=== PATIENT | female | born 1935 | race Caucasian/White ===

== ENCOUNTER → 2016-11-02 | Outpatient (CLI) | payer OTHER ==
[~2016-11-02] MED LIST: BENZ100C84 PO; CLB/200 PO; DOXY100C2 PO; DTR/5 PO; GLC/500 PO; GLIM1TAB2 PO; LEVO50TA6 PO; LISI-725 PO; MULTTAB45 PO; OMEP40CA41 PO; SIMV40TA2 PO
--- NOTE | 2016-11-02 16:06 | MAMMOGRAPHY REPORT ---
BILATERAL DIGITAL SCREENING MAMMOGRAM WITH CAD: 11/02/2016 CLINICAL HISTORY: Routine screening. Patient has no complaints. TECHNIQUE: Current study was also evaluated with a Computer Aided Detection (CAD) system. Bilatera l CC and MLO views were obtained. COMPARISON: Comparison is made to exams dated: 10/01/2015 mammogram, 09/29/2014 mammogram, and 06/25/20 13 mammogram - [facility]. BREAST COMPOSITION: There are scattered areas of fibroglandular density in both breasts. FINDINGS: No suspicious masses, calcifications, or areas of architectural distortion are noted in e ither breast. There has been no significant interval change compared to prior exams. Bilateral adriana gn-appearing calcifications are again noted. IMPRESSION: ACR BI-RADS CATEGORY 2: BENIGN There is no mammographic evidence of malignancy. A 1 year screening mammogram is recommended. The p atient will receive written notification of the results. Approximately 10% of breast cancers are not detected with mammography. A negative mammographic repor t should not delay biopsy if a clinically suggestive mass is present. Carmen Alicea M.D. ah/:11/02/2016 15:39:17 Fly Winder: Farida CHRISTIAN(R)(M), [facility] letter sent: Normal 1/2 BI-RADS Code: ACR BI-RADS Category 2: Benign
== END | disposition home or self-care (01) ==
LOC: C.MAMM 13:13
PROVIDERS: ATTEND Internal Medicine
DX: Z12.31 Encounter for screening mammogram for malignant neoplasm of breast (principal)

== ENCOUNTER → 2016-12-20 | Outpatient (CLI) | payer OTHER ==
[2016-12-20 12:47] LABS: CALCIUM 8.9 mg/dl (8.5-10.1)
[2016-12-20 12:49] LABS: ALKALINE PHOSPHATASE 53 U/L (45-117); ALT/SGPT 37 U/L (12-78); BLOOD UREA NITROGEN 22 mg/dl (7-18); BUN/CREATININE RATIO 17.9 (10-20); CARBON DIOXIDE 26 mmol/L (21-32); CHLORIDE 104 mmol/L (98-107); CHOLESTEROL 85 mg/dl (0-200); GLUCOSE 146 mg/dl (70-99); POTASSIUM 4.4 mmol/L (3.5-5.1); SODIUM 139 mmol/L (136-145); TRIGLYCERIDES 90 mg/dl (0-150); VERY LOW DENSITY LIPOPROT CALC 18 mg/dl
[2016-12-20 12:59] LABS: AST/SGOT 29 U/L (15-37); CHOLESTEROL/HDL RATIO 2.2; ESTIMATED AVERAGE GLUCOSE 177 mg/dl; HA1C FLAG Normal (Normal); HDL CHOLESTEROL 38 mg/dl; LDL CHOLESTEROL CALCULATED 29 mg/dl
[2016-12-20 13:02] LABS: RATIO 8.7 mcg/mg (0-30.0)
== END | disposition home or self-care (01) ==
LOC: C.LABBFT 10:13
PROVIDERS: ATTEND Internal Medicine
DX: E11.65 Type 2 diabetes mellitus with hyperglycemia (principal); E78.5 Hyperlipidemia, unspecified; E03.9 Hypothyroidism, unspecified

== ENCOUNTER → 2017-06-07 | Outpatient (CLI) | payer OTHER ==
--- NOTE | 2017-06-07 13:52 | DIAGNOSTIC IMAGING REPORT ---
CHEST 2 VIEWS ROUTINE CLINICAL HISTORY: 81 years-old Female presenting with BRONCHITIS. TECHNIQUE: PA and lateral views of the chest were obtained. COMPARISON: 09/16/2015. FINDINGS: Atherosclerosis of the aortic arch. Cardiac silhouette normal in size. Slight decreased prominence of pulmonary vasculature. Unchanged prominent lung markings. Lungs and pleural spaces clear. Degenerative changes of the thoracic spine. Cholecystectomy clips noted. Calcification projects over the left upper quadrant, possibly splenic or splenic arterial. IMPRESSION: 1. No acute cardiopulmonary disease. Electronically signed by: Tr Otoole M.D. 06/07/2017 1:50 PM Dictated Date/Time: 06/07/2017 1:49 PM
== END | disposition home or self-care (01) ==
LOC: C.RAD 12:52
PROVIDERS: ATTEND Physician Assistant Medical
DX: J40 Bronchitis, not specified as acute or chronic (principal)

== ENCOUNTER 2017-06-19 16:32 | Emergency (ER) | payer OTHER ==
[~2017-06-19] VITALS: Ht 152.4 cm; Wt 76.6 kg
[2017-06-19 16:42] VITALS: BP 181/75; PULSE 100; TEMP 37; O2SAT 95; Ht 152.4 cm; Wt 76.6 kg
== END 2017-06-19 17:05 | disposition left against medical advice (07) ==
LOC: C.EDB 16:33
DX: Z91.19 Patient's noncompliance with other medical treatment and regimen (principal)

== ENCOUNTER → 2017-06-28 | Outpatient (CLI) | payer OTHER ==
[2017-06-28 12:27] LABS: HEMATOCRIT 40.2 % (37-47); MEAN CELL VOLUME 97.1 fL (80-100); MEAN CORPUSCULAR HEMOGLOBIN 31.9 pg (25-34); MEAN CORPUSCULAR HGB CONC 32.8 g/dl (32-36); MEAN PLATELET VOLUME 9.5 fL (7.4-10.4); PLATELET COUNT 302 K/uL (130-400); RED BLOOD COUNT 4.14 M/uL (4.2-5.4); WHITE BLOOD COUNT 9.33 K/uL (4.8-10.8)
[2017-06-28 12:51] LABS: ALT/SGPT 25 U/L (12-78); BLOOD UREA NITROGEN 13 mg/dl (7-18); BUN/CREATININE RATIO 12.7 (10-20); CARBON DIOXIDE 27 mmol/L (21-32); CHLORIDE 100 mmol/L (98-107); CHOLESTEROL 131 mg/dl (0-200); CREATININE 1.01 mg/dl (0.60-1.20); GLUCOSE 153 mg/dl (70-99); SODIUM 135 mmol/L (136-145); TRIGLYCERIDES 165 mg/dl (0-150); VERY LOW DENSITY LIPOPROT CALC 33 mg/dl
[2017-06-28 13:13] LABS: ALB/GLOB RATIO 0.9 (0.9-2); ALKALINE PHOSPHATASE 55 U/L (45-117); AST/SGOT 22 U/L (15-37); CHOLESTEROL/HDL RATIO 2.7; HDL CHOLESTEROL 48 mg/dl; LDL CHOLESTEROL CALCULATED 50 mg/dl
[2017-06-28 13:19] LABS: ESTIMATED AVERAGE GLUCOSE 183 mg/dl; HA1C FLAG Normal (Normal)
== END | disposition home or self-care (01) ==
LOC: C.LABBFT 10:14
PROVIDERS: ATTEND Internal Medicine
DX: E11.65 Type 2 diabetes mellitus with hyperglycemia (principal)

== ENCOUNTER → 2017-08-01 | Outpatient (CLI) | payer OTHER | END | disposition home or self-care (01) | LOC: C.LABSPEC 15:35 | PROVIDERS: ATTEND Physician Assistant | DX: R39.9 Unspecified symptoms and signs involving the genitourinary system (principal) ==

== ENCOUNTER → 2017-11-06 | Outpatient (CLI) | payer OTHER ==
--- NOTE | 2017-11-07 07:47 | MAMMOGRAPHY REPORT ---
BILATERAL DIGITAL SCREENING MAMMOGRAM TOMOSYNTHESIS WITH CAD: 11/06/2017 CLINICAL HISTORY: Routine screening. Patient has no complaints. TECHNIQUE: Breast tomosynthesis in addition to standard 2D mammography was performed. Current study was also evaluated with a Computer Aided Detection (CAD) system. COMPARISON: Comparison is made to exams dated: 11/02/2016 mammogram, 10/01/2015 mammogram, 09/29/2014 ma mmogram, 06/25/2013 mammogram, and 10/05/2004 mammogram - [facility] [address]. BREAST COMPOSITION: There are scattered areas of fibroglandular density in both breasts. FINDINGS: There are scattered benign rounded rim calcifications in the breasts. Mild to moderate vas cular calcification. The glandular pattern is similar to prior mammograms. No developing mass, arch itectural distortion or cluster of suspicious microcalcifications is seen. IMPRESSION: ACR BI-RADS CATEGORY 2: BENIGN There is no mammographic evidence of malignancy. A 1 year screening mammogram is recommended. The pa tient will receive written notification of the results. Approximately 10% of breast cancers are not detected with mammography. A negative mammographic report should not delay biopsy if a clinically suggestive mass is present. Blanca Abraham M.D. ay/:11/06/2017 16:24:52 Director Hematology: Carmella CRONIN)(Usman), [facility] [address] letter sent: Normal 1/2 BI-RADS Code: ACR BI-RADS Category 2: Benign
== END | disposition home or self-care (01) ==
LOC: C.MAMM 13:27
PROVIDERS: ATTEND Internal Medicine
DX: Z12.31 Encounter for screening mammogram for malignant neoplasm of breast (principal)

== ENCOUNTER → 2018-02-19 | Outpatient (CLI) | payer OTHER ==
--- NOTE | 2018-02-19 14:59 | DIAGNOSTIC IMAGING REPORT ---
ARTERIAL DOPPLER ULTRASOUND LOWER EXTREMITIES BILATERALLY CLINICAL HISTORY: Bilateral leg cramping and diminished pulses. COMPARISON STUDY: No previous studies for comparison. FINDINGS: Grayscale color flow and spectral waveform analysis was performed. The patient refused ankle brachial indices. On the left there is triphasic flow within the common femoral superficial femoral popliteal and anterior tibial arteries. There is biphasic flow within the left posterior tibial and triphasic flow within the peroneal. On the right there was triphasic flow within the common femoral and superficial femoral arteries. There is biphasic flow within the popliteal anterior tibial posterior tibial arteries. There is biphasic flow within the peroneal. No high velocity jets were visualized. IMPRESSION: No evidence of lower extremity arterial stenosis. Electronically signed by: You Campo M.D. 02/19/2018 2:58 PM Dictated Date/Time: 02/19/2018 2:56 PM
== END | disposition home or self-care (01) ==
LOC: C.ULTR 13:10
PROVIDERS: ATTEND Podiatrist
DX: E11.51 Type 2 diabetes mellitus with diabetic peripheral angiopathy without gangrene (principal)

== ENCOUNTER → 2018-02-22 | Outpatient (CLI) | payer OTHER | END | disposition home or self-care (01) | LOC: C.LABSPEC 09:38 | PROVIDERS: ATTEND Internal Medicine | DX: R39.9 Unspecified symptoms and signs involving the genitourinary system (principal); N39.0 Urinary tract infection, site not specified ==

== ENCOUNTER 2020-05-06 11:36 | Observation (INO) ==
[2020-05-06] MEDS ORDERED: LIDOCAINE/EPINEPHRINE 1% 20 ML VIAL INFIL ONE (12:11)
--- NOTE | 2020-05-06 12:35 | Emergency Department Note ---
History of Present Illness General Chief Complaint: Laceration/Cut (Suture/Dermabond) Stated Complaint: FALL HEAD LACERATION Time Seen by Provider: 05/06/20 11:56 Source: patient Mode of arrival: ambulatory Limitations: no limitations History of Present Illness Provider complaint: fall, head injury and other (laceration) Onset (ago): hour(s) 8 Fall from: chair (toilet) Fall witnessed: no Place fall occurred: home Loss of consciousness: none Prolonged down time: no Symptoms prior to fall: none Treatments prior to arrival: + none Context: + other (fell asleep while on toilet) Location of injury: + head Location of injury - extremities: Right: shoulder and knee Severity: moderate Current Pain Intensity: 0 Associated symptoms (after fall): + denies This 84-year-old female patient presents to the emergency department today for evaluation of head laceration and fall. The patient states last night she awoke to go to the bathroom and at approximately 4 AM. She believes she fell asleep on the toilet, then fell onto the floor, striking her head on what she believes to be the concrete floor, but is unclear regarding these details. The patient states she was able to get onto all fours to crawl into her bedroom and get herself up to a standing position and went back to bed. She states she is now experiencing right shoulder and right knee pain in addition to the laceration on the head. The patient contacted her family this morning who brought her to the emergency department for evaluation. The patient denies any syncope, chest pain, dyspnea, numbness, tingling, weakness, inability to ambulate, abdominal pain, nausea, or vomiting. She denies any neck pain. Related Data Patient tetanus UTD: Yes Home Medications Home Medications Medication Instructions Recorded Confirmed Type levothyroxine 50 mcg tablet 50 mcg PO DAILY #90 tab 07/31/19 05/06/20 Rx lisinopril 20 mg tablet 20 mg PO DAILY #90 tab 08/05/19 05/06/20 Rx empagliflozin 25 mg tablet 25 mg PO DAILY #90 tab 10/28/19 05/06/20 Rx sitagliptin 100 mg tablet 100 mg PO DAILY #30 tab 01/23/20 05/06/20 Rx glimepiride 4 mg tablet 4 mg PO BID #60 tab 04/14/20 05/06/20 Rx oxybutynin chloride 5 mg tablet 5 mg PO BID #180 tab 04/22/20 05/06/20 Rx omeprazole 40 mg capsule,delayed 40 mg PO BID #180 cap 04/23/20 05/06/20 Rx release Allergies Allergy/AdvReac Type Severity Reaction Status Date / Time metformin AdvReac diarrhea Verified 04/30/20 13:36 Past Med/Surg History Medical History Cholelithiases (05/17/13) Diabetes mellitus type 2, uncontrolled Hypercholesteremia Hypothyroidism Surgical History History of cataract surgery History of colonoscopy History of hysterectomy vaginal History of laparoscopic cholecystectomy History of surgery on arm History of vaginal surgery H/O vaginal sling procedure Family History (Updated 04/30/20 @ 13:41 by Agata Gleason MA) Mother Asthma Diabetes Father Diabetes Sister Diabetes Dementia Brother Cancer Myocardial infarction Other Family history of diabetes mellitus Family history of hypertension Denies family history of Ovarian cancer Prostate cancer Coronary heart disease Breast cancer Colorectal cancer Stroke Social History Smoking Status: Never smoker Second Hand Exposure: No; Hx Alcohol Use: No Hx Substance Use: No Preferred Language: Uzbek Visual Impairment: No Limitations Hearing Ability: Normal Heat 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 Required: No Beliefs That Will Affect Care: None marital status: / Current Living Situation: Alone current occupational status: disabled Feels Safe at Home: Yes Childhood Exposure to Second-Hand Smoke: No caffeine: Yes during the past year weight has: remained stable Dental Care, Regularly: No Physical Activity Frequency: Does not Exercise Seatbelt Use: always Review of Systems A total of 10 systems reviewed and were otherwise negative Physical Exam Vital Signs Vital Signs - 24 hr 05/06/20 11:44 05/06/20 12:30 05/06/20 12:33 Temperature 37.1 C Temperature Source Oral Pulse Rate 85 75 Pulse Rhythm Regular Pulse Strength Normal Respiratory Rate 18 21 Respiratory Effort / Characteristics Non-Labored Spontaneous Respiratory Depth Normal Blood Pressure 167/71 H 137/67 Blood Pressure Mean 103 80 Pulse Oximetry 96 96 Oxygen Delivery Method Room Air Room Air Sepsis Recent Fever Within 48 Hours No Sepsis New/Unexplained Change in Mental Status No Sepsis Action Taken by Nursing No Action Required 05/06/20 12:38 05/06/20 13:34 05/06/20 13:36 Temperature Temperature Source Pulse Rate 73 78 74 Pulse Rhythm Pulse Strength Respiratory Rate 20 21 20 Respiratory Effort / Characteristics Respiratory Depth Blood Pressure 144/67 H Blood Pressure Mean 81 Pulse Oximetry 95 Oxygen Delivery Method Sepsis Recent Fever Within 48 Hours Sepsis New/Unexplained Change in Mental Status Sepsis Action Taken by Nursing 05/06/20 14:00 05/06/20 14:30 05/06/20 14:31 Temperature Temperature Source Pulse Rate 75 70 70 Pulse Rhythm Pulse Strength Respiratory Rate 16 20 20 Respiratory Effort / Characteristics Respiratory Depth Blood Pressure 130/63 120/53 L Blood Pressure Mean 76 82 Pulse Oximetry Oxygen Delivery Method Sepsis Recent Fever Within 48 Hours Sepsis New/Unexplained Change in Mental Status Sepsis Action Taken by Nursing 05/06/20 15:00 Temperature Temperature Source Pulse Rate 72 Pulse Rhythm Pulse Strength Respiratory Rate 22 Respiratory Effort / Characteristics Respiratory Depth Blood Pressure Blood Pressure Mean Pulse Oximetry Oxygen Delivery Method Sepsis Recent Fever Within 48 Hours Sepsis New/Unexplained Change in Mental Status Sepsis Action Taken by Nursing VITALS: Vitals are noted on the nurse's note and reviewed by myself. Vital signs stable. GENERAL: This is an 84-year-old white female, in no acute distress, nondiaphoretic, well-developed well-nourished. SKIN: 6 centimeter linear laceration on the right frontal region of the scalp. The edges do gape apart with traction and the bone is visible at the base of the wound. No active bleeding or discharge. No surrounding erythema or evidence of infection. No significant edema. There is some mild tenderness to palpation in this area. The skin was otherwise without rashes, erythema, edema, or bruising. There is no tenting of the skin. Capillary refill less than 2 seconds. HEAD: Normocephalic atraumatic. EARS: External auditory canals clear, tympanic membranes pearly molina without erythema or effusion bilaterally. No hemotympanum. Negative rao sign. EYES: Pupils equal round and reactive to light and accommodation. Conjunctivae without injection, sclerae without icterus. Extraocular movements intact. No swelling or discoloration of the tissue surrounding the eyes. NOSE: Patent, turbinates without inflammation or discharge. No sinus tenderness. MOUTH: Mucous membranes moist. Tonsils are not enlarged. Pharynx without erythema or exudate. Uvula midline. Airway patent. Tongue does not deviate. NECK: Supple without nuchal rigidity. No lymphadenopathy. No thyromegaly. Cervical spine is nontender. No JVD. HEART: Regular rate and rhythm without murmurs gallops or rubs. LUNGS: Clear to auscultation bilaterally without wheezes, rales or rhonchi. No retractions or accessory muscle use. MUSCULOSKELETAL: No muscle atrophy, erythema, or edema noted. Full range of motion without joint tenderness in all extremities. Tenderness of the right knee and right shoulder joints to palpation. Normal gait. Strength 5/5 throughout. NEURO: Patient was alert and oriented to person place and time. Normal sensation to light and sharp touch. Deep tendon reflexes 2+ throughout. No focal neurological deficits. Procedures Laceration Laceration 1: Site: scalp Side (If applicable): right Size (cm): 6 Description: linear Depth: simple, single layer Local Anesthetic: lidocaine 1% and with epi Amount of anesthesia used (mL): 6 Pre-repair: wound explored, irrigated extensively and deep structures intact Skin layer closed with: other (liv) Number of sutures: 7 Course Course The patient was seen and evaluated as above. An order was placed for continuous cardiac monitoring. The monitor shows a normal sinus rhythm at a rate of 72 bpm. IV access obtained, labs drawn. Imaging performed and reviewed by myself and radiologist as noted. Labs reviewed by myself. I discussed the findings with the patient at bedside. I did discuss the case with the [facility] physician, Dr. Galvez. We agreed to repeat the troponin. Laceration was repaired as noted. Repeat troponin continues to be elevated. The patient will be admitted to the [facility] hospitalist service. Please see hospitalist dictation regarding ongoing management care of this patient. Administered Medications Discontinued Medications Lidocaine/Epinephrine (Lidocaine/Epinephrine 1% 20 Ml Vial) 20 ml INFIL NOW ONE Stop: 05/06/20 12:12 Last Admin: 05/06/20 12:36 Dose: 20 ml Documented by: [id number] Medical Decision Making Differential Diagnosis syncope, dislocation, fracture, compression fracture, concussion with loss of consciousness, concussion without loss of consciousness, closed head injury, intracranial bleeding, contusion, abrasion, soft tissue injury, conpartment syndrome and rhabdomyolysis In addition to the above, cardiac etiology, metabolic abnormality, electrolyte abnormality, among others was considered Medical Records Attestation: I reviewed the patient's medical records. Home Medications Current Medication List: was personally reviewed by me Laboratory Data Attestation: I reviewed the patient's lab results. No leukocytosis, anemia, thrombocytopenia. Renal, hepatic function, and electrolytes without significant abnormality though creatinine mildly elevated at 1.49 with a an elevated BUN of 39. Magnesium 1.5. Coags normal. Troponin elevated 0.192. Repeat troponin elevated 0.213. Result diagrams: 05/06/20 12:25 05/06/20 12:25 Lab Results 05/06/20 05/06/20 05/06/20 Range/Units 12:25 12:25 12:25 WBC 9.38 (4.8-10.8) K/uL RBC 4.28 (4.2-5.4) M/uL Hgb 13.7 (12.0-16.0) g/dL Hct 39.2 (37-47) % MCV 91.6 (80-100) fL MCH 32.0 (25-34) pg MCHC 34.9 (32-36) g/dL RDW Std Deviation 45.7 (36.4-46.3) fL RDW Coeff of Barry 13.7 (11.5-14.5) % Plt Count 306 (130-400) K/uL MPV 9.5 (7.4-10.4) fL Immature Gran % (Auto) 0.2 % Neut % (Auto) 75.3 % Lymph % (Auto) 17.8 % Bath % (Auto) 5.9 % Eos % (Auto) 0.7 % Baso % (Auto) 0.1 % Neut # (Auto) 7.06 H (1.4-6.5) K/uL Lymph # (Auto) 1.67 (1.2-3.4) K/uL Bath # (Auto) 0.55 (0.11-0.59) K/uL Eos # (Auto) 0.07 (0-0.5) K/uL Baso # (Auto) 0.01 (0-0.2) K/uL Immature Gran # (Auto) 0.02 (0.00-0.02) K/uL PT 10.7 (9.0-12.0) Seconds INR 1.0 (0.9-1.1) APTT 27.9 (21.0-31.0) Seconds PTT Ratio 1.0 Sodium 134 L (136-145) mmol/L Potassium 4.3 (3.5-5.1) mmol/L Chloride 101 (98-107) mmol/L Carbon Dioxide 26 (21-32) mmol/L Anion Gap 7.0 (3-11) BUN 39 H (7-18) mg/dl Creatinine 1.49 H (0.6-1.2) mg/dl Est Cr Clr Drug Dosing 23.0 ml/min Est GFR ( Amer) 37.5 Est GFR (Non-Af Amer) 32.4 BUN/Creatinine Ratio 26.5 H (10-20) Glucose 245 H (70-99) mg/dl Calcium 9.4 (8.5-10.1) mg/dl Magnesium 1.5 L (1.8-2.4) mg/dl Total Bilirubin 0.7 (0.2-1) mg/dl AST 23 (15-37) U/L ALT 24 (12-78) U/L Alkaline Phosphatase 86 (45-117) U/L Troponin I 0.192 H* (0-0.045) ng/ml Total Protein 7.9 (6.4-8.2) gm/dl Albumin 3.5 (3.4-5.0) gm/dl Globulin 4.4 H (2.5-4.0) gm/dl Albumin/Globulin Ratio 0.8 L (0.9-2) 14/20 Range/Units 13:45 WBC (4.8-10.8) K/uL RBC (4.2-5.4) M/uL Hgb (12.0-16.0) g/dL Hct (37-47) % MCV (80-100) fL MCH (25-34) pg MCHC (32-36) g/dL RDW Std Deviation (36.4-46.3) fL RDW Coeff of Barry (11.5-14.5) % Plt Count (130-400) K/uL MPV (7.4-10.4) fL Immature Gran % (Auto) % Neut % (Auto) % Lymph % (Auto) % Bath % (Auto) % Eos % (Auto) % Baso % (Auto) % Neut # (Auto) (1.4-6.5) K/uL Lymph # (Auto) (1.2-3.4) K/uL Bath # (Auto) (0.11-0.59) K/uL Eos # (Auto) (0-0.5) K/uL Baso # (Auto) (0-0.2) K/uL Immature Gran # (Auto) (0.00-0.02) K/uL PT (9.0-12.0) Seconds INR (0.9-1.1) APTT (21.0-31.0) Seconds PTT Ratio Sodium (136-145) mmol/L Potassium (3.5-5.1) mmol/L Chloride (98-107) mmol/L Carbon Dioxide (21-32) mmol/L Anion Gap (3-11) BUN (7-18) mg/dl Creatinine (0.6-1.2) mg/dl Est Cr Clr Drug Dosing ml/min Est GFR ( Amer) Est GFR (Non-Af Amer) BUN/Creatinine Ratio (10-20) Glucose (70-99) mg/dl Calcium (8.5-10.1) mg/dl Magnesium (1.8-2.4) mg/dl Total Bilirubin (0.2-1) mg/dl AST (15-37) U/L ALT (12-78) U/L Alkaline Phosphatase (45-117) U/L Troponin I 0.213 H* (0-0.045) ng/ml Total Protein (6.4-8.2) gm/dl Albumin (3.4-5.0) gm/dl Globulin (2.5-4.0) gm/dl Albumin/Globulin Ratio (0.9-2) Imaging Data Radiologist's Impression: HEAD CT NONCONTRAST CT DOSE: 1632.96 mGy.cm HISTORY: fall, head injury TECHNIQUE: Multiaxial CT images of the head were performed without the use of intravenous contrast. Automated exposure control was utilized for this study. A dose lowering technique was utilized adhering to the principles of ALARA. Comparison: None. Findings: The paranasal sinuses and mastoid air cells are clear. The calvarium and skull base are intact. There is no mass, hematoma, midline shift, acute infarct. White matter hypodensity is nonspecific but suggestive of microvascular ischemic change. The ventricles and sulci demonstrate mild age-related involutional changes. Right frontal scalp laceration. Impression: No acute intracranial abnormality. Right frontal scalp laceration. ACT 112: Negative or not required by law. Electronically signed by: Mike Sexton M.D. 05/06/2020 12:[address] SCAN OF THE CERVICAL SPINE CLINICAL HISTORY: Trauma. Fall. COMPARISON STUDY: No priors. TECHNIQUE: CT scan of the cervical spine is performed from the skull base to the upper thoracic spine. Images are reviewed in the axial, sagittal, and coronal planes. IV contrast was not administered for this examination. A dose lowering technique was utilized adhering to the principles of ALARA. FINDINGS: Skeletal structures: The skeletal structures are osteopenic. There is no eviden ce of fracture or subluxation involving the cervical spine. Vertebral body height and alignment are maintained. There is straightening of the cervical lordosis. Large anterior osteophytes are seen throughout. The odontoid process and lateral masses are intact. The atlantoaxial articulation is preserved noting productive degenerative change. The spinous processes appear intact. There is moderate to advanced multilevel cervical spondylosis. Uncovertebral and facet arthropathy contribute to neural foraminal stenosis at most levels. Intervertebral discs: Moderate to advanced disc space narrowing is seen at all cervical levels. Central canal: Posterior disc osteophyte complexes at all cervical levels likely contribute to multilevel acquired compromise of the central canal. Soft tissues: The prevertebral and paraspinous soft tissues are within normal limits. Calvarium: The visualized calvarium at the skull base appears intact. Brain parenchyma: Partially visualized brain parenchyma the skull base is within normal limits. Sinuses and mastoids: The visualized paranasal sinuses are clear. There are bilateral mastoid effusions. Lung apices: Clear as visualized. IMPRESSION: 1. There is no evidence of fracture or subluxation involving the cervical spine. 2. Osteopenia and spondylotic change as above. ACT 112: Negative or not required by law. Electronically signed by: Johnson Ahumada M.D. 05/06/2020 12:57 PM XR chest 1V not portable CLINICAL HISTORY: Fall. COMPARISON STUDY: Chest radiograph September 27, 2018. FINDINGS: There is no pneumothorax or pleural effusion. No airspace opacities are present. There is no evidence for pulmonary edema. Mild cardiomegaly is unchanged. The appearance of the chest is unchanged. IMPRESSION: No acute cardiopulmonary findings. No change in appearance of the chest. ACT 112: Negative or not required by law. Electronically signed by: Shawn Garcia M.D. 05/06/2020 1:22 PM XR shoulder RT min 2V routine CLINICAL HISTORY: shoulder pain, fall COMPARISON: None FINDINGS: Alignment of the right acromioclavicular and glenohumeral joints is anatomic. Note is made of a 1.1 cm oval-shaped calcific/ossific density along the inferior aspect of the glenoid which is chronic. There is moderate osteoarthritis of the right acromioclavicular and glenohumeral joints. IMPRESSION: 1. No acute fracture or dislocation within the right shoulder. 2. 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 3. No change in a 1.1 cm oval-shaped calcific/ossific density along the inferior aspect the glenoid which could reflect a joint body. ACT 112: Negative or not required by law. Electronically signed by: Shawn Garcia M.D. 05/06/2020 1:24 PM XR knee RT 3V CLINICAL HISTORY: right knee pain, pain COMPARISON: None. DISCUSSION: No acute fractures are visualized. There are moderately advanced osteoarthritic changes with marked medial joint compartment narrowing and osteophytic spurring. Degenerative changes are also present within the lateral joint compartment and patellofemoral joint. IMPRESSION: 1. No acute fractures 2. Moderately advanced osteoarthritic change. ACT 112: Negative or not required by law. Electronically signed by: You Campo M.D. 05/06/2020 1:25 PM ECG Data Attestation: I personally reviewed and interpreted this ECG as follows: Indication: chest pain Rate (beats per minute): 72 Rhythm: normal sinus Findings: no ST depression, no T-wave inversion, no ST elevation, no acute ischemic change and no ectopy Comparison ECG Date: from (09/08/2018) Change: no significant change Blood Pressure Blood Pressure Findings: Normal blood pressure Head Trauma GCS Score: 15 MDM Narrative This 84-year-old female patient presents to the emergency department today for evaluation of a large scalp laceration after a fall. The patient fell at 4 AM this morning after getting up to go to the bathroom. She is unclear of the etiology, but believes she fell asleep on the toilet. She does indicate that she could have had a syncopal episode, as she does not recall falling and woke up on the floor. The patient was able to get herself up, but did not contact her family until this afternoon. She was brought to the emergency department with a very large scalp laceration. Because of the unclear etiology, we did elect to perform work-up including labs, EKG, and imaging. Imaging negative for acute abnormality. Labs concerning for an elevated troponin. The patient has had a mildly elevated troponin in the past, but this has been detectable and not positive. We did elect to perform repeat testing, and the troponin does seem to be trending upward. The scalp laceration was repaired here in the emergency department. The patient will be admitted to the hospitalist service for ongoing management of her symptoms and the elevated troponin. Please see hospitalist dictation regarding ongoing management care of this patient. The chart was completed utilizing [employer] Speech voice recognition software. Grammatical errors, random word insertions, pronoun errors, and incomplete sentences are an occasional consequence of this system due to software limitations, ambient noise, and hardware issues. Any formal questions or concerns about the content, text, or information contained within the body of this dictation should be directly addressed to the provider for clarification. Impression & Plan Laceration of scalp, Fall, Elevated troponin Discharge Plan Visit Data Chief Complaint: Laceration/Cut (Suture/Dermabond) Stated Complaint: FALL HEAD LACERATION ED Provider: Michi Burkett ED Midlevel Provider: Sarah Forman Discharge Problem: Laceration of scalp, Fall, Elevated troponin Patient Disposition: Admitted As Inpatient Discharge Instructions Interventions: ED Discharge Assessment Last Done: 05/06/20 15:24 Forms Stand Alone Forms: [facility] [employer] Prescriptions Prescriptions: No Action levothyroxine 50 mcg tablet 50 mcg PO DAILY Qty: 90 RF: 3 lisinopril 20 mg tablet 20 mg PO DAILY Qty: 90 RF: 3 Jardiance 25 mg tablet 25 mg PO DAILY Qty: 90 RF: 3 Januvia 100 mg tablet 100 mg PO DAILY Qty: 30 RF: 5 glimepiride 4 mg tablet 4 mg PO BID Qty: 60 RF: 11 oxybutynin chloride 5 mg tablet 5 mg PO BID Qty: 180 RF: 1 omeprazole 40 mg capsule,delayed release(DR/EC) 40 mg PO BID Qty: 180 RF: 3 Referrals Referrals: Figueroa De La Cruz III, MD [Primary Care Provider] - Discharge Problem: Laceration of scalp Qualifiers: Encounter type: initial encounter Qualified Code(s): S01.01XA - Laceration without foreign body of scalp, initial encounter Fall Qualifiers: Encounter type: initial encounter Qualified Code(s): W19.XXXA - Unspecified fall, initial encounter
[2020-05-06 12:42] LABS: Basophils # (auto) 0.01 K/uL (0-0.2); Basophils % (auto) 0.1 %; Eosinophils # (auto) 0.07 K/uL (0-0.5); Eosinophils % (auto) 0.7 %; Hematocrit (blood only) 39.2 % (37-47); Hemoglobin 13.7 g/dL (12.0-16.0); Immature Granulocytes # (auto) 0.02 K/uL (0.00-0.02); Immature Granulocytes % (auto) 0.2 %; Lymphocytes # (auto) 1.67 K/uL (1.2-3.4); Lymphocytes % (auto) 17.8 %; Mean Corpuscular Hgb Conc 34.9 g/dL (32-36); Mean Corpuscular Volume 91.6 fL (80-100); Mean Platelet Volume 9.5 fL (7.4-10.4); Monocytes # (auto) 0.55 K/uL (0.11-0.59); Monocytes % (auto) 5.9 %; Neutrophils # (auto) 7.06 K/uL (1.4-6.5); Neutrophils % (auto) 75.3 %; Platelet Count 306 K/uL (130-400); RDW Coefficient of Variation 13.7 % (11.5-14.5); RDW Standard Deviation 45.7 fL (36.4-46.3); Red Blood Count 4.28 M/uL (4.2-5.4); White Blood Count 9.38 K/uL (4.8-10.8)
[2020-05-06 12:57] LABS: Partial Thromboplastin Time 27.9 Seconds (21.0-31.0); Prothrombin Time 10.7 Seconds (9.0-12.0)
--- NOTE | 2020-05-06 12:58 | CT Scan Report ---
HEAD CT NONCONTRAST CT DOSE: 1632.96 mGy.cm HISTORY: fall, head injury TECHNIQUE: Multiaxial CT images of the head were performed without the use of intravenous contrast. A utomated exposure control was utilized for this study. A dose lowering technique was utilized adheri ng to the principles of ALARA. Comparison: None. Findings: The paranasal sinuses and mastoid air cells are clear. The calvarium and skull base are int act. There is no mass, hematoma, midline shift, acute infarct. White matter hypodensity is nonspecifi c but suggestive of microvascular ischemic change. The ventricles and sulci demonstrate mild age-rela patric involutional changes. Right frontal scalp laceration. Impression: No acute intracranial abnormality. Right frontal scalp laceration. ACT 112: Negative or not required by law. Electronically signed by: Mike Sexton M.D. 05/06/2020 12:57 PM
--- NOTE | 2020-05-06 12:58 | CT Scan Report ---
CT SCAN OF THE CERVICAL SPINE CLINICAL HISTORY: Trauma. Fall. COMPARISON STUDY: No priors. TECHNIQUE: CT scan of the cervical spine is performed from the skull base to the upper thoracic spine . Images are reviewed in the axial, sagittal, and coronal planes. IV contrast was not administered fo r this examination. A dose lowering technique was utilized adhering to the principles of ALARA. FINDINGS: Skeletal structures: The skeletal structures are osteopenic. There is no evidence of fracture or subl uxation involving the cervical spine. Vertebral body height and alignment are maintained. There is st raightening of the cervical lordosis. Large anterior osteophytes are seen throughout. The odontoid pr ocess and lateral masses are intact. The atlantoaxial articulation is preserved noting productive deg enerative change. The spinous processes appear intact. There is moderate to advanced multilevel cervi ivis spondylosis. Uncovertebral and facet arthropathy contribute to neural foraminal stenosis at most levels. Intervertebral discs: Moderate to advanced disc space narrowing is seen at all cervical levels. Central canal: Posterior disc osteophyte complexes at all cervical levels likely contribute to multil evel acquired compromise of the central canal. Soft tissues: The prevertebral and paraspinous soft tissues are within normal limits. Calvarium: The visualized calvarium at the skull base appears intact. Brain parenchyma: Partially visualized brain parenchyma the skull base is within normal limits. Sinuses and mastoids: The visualized paranasal sinuses are clear. There are bilateral mastoid effusio ns. Lung apices: Clear as visualized. IMPRESSION: 1. There is no evidence of fracture or subluxation involving the cervical spine. 2. Osteopenia and spondylotic change as above. ACT 112: Negative or not required by law. Electronically signed by: Johnson Ahumada M.D. 05/06/2020 12:57 PM
[2020-05-06 13:03] LABS: Albumin Level 3.5 gm/dl (3.4-5.0); BUN Creatinine Ratio 26.5 (10-20); Calcium 9.4 mg/dl (8.5-10.1); Est GFR (African American) 37.5; Est GFR (Non-African American) 32.4; Magnesium 1.5 mg/dl (1.8-2.4); Potassium 4.3 mmol/L (3.5-5.1)
[2020-05-06 13:11] LABS: Albumin Globulin Ratio 0.8 (0.9-2); Bilirubin,Total 0.7 mg/dl (0.2-1); Globulin 4.4 gm/dl (2.5-4.0); Total Protein 7.9 gm/dl (6.4-8.2); Troponin I 0.192 ng/ml (0-0.045)
--- NOTE | 2020-05-06 13:23 | XRay Report ---
XR chest 1V not portable CLINICAL HISTORY: Fall. COMPARISON STUDY: Chest radiograph September 27, 2018. FINDINGS: There is no pneumothorax or pleural effusion. No airspace opacities are present. There is n o evidence for pulmonary edema. Mild cardiomegaly is unchanged. The appearance of the chest is unchan ged. IMPRESSION: No acute cardiopulmonary findings. No change in appearance of the chest. ACT 112: Negative or not required by law. Electronically signed by: Shawn Garcia M.D. 05/06/2020 1:22 PM
--- NOTE | 2020-05-06 13:26 | XRay Report ---
XR shoulder RT min 2V routine CLINICAL HISTORY: shoulder pain, fall COMPARISON: None FINDINGS: Alignment of the right acromioclavicular and glenohumeral joints is anatomic. Note is made of a 1.1 cm oval-shaped calcific/ossific density along the inferior aspect of the glenoid which is c hronic. There is moderate osteoarthritis of the right acromioclavicular and glenohumeral joints. IMPRESSION: 1. No acute fracture or dislocation within the right shoulder. 2. 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 3. No change in a 1.1 cm oval-shaped calcific/ossific density along the inferior aspect the glenoid w hich could reflect a joint body. ACT 112: Negative or not required by law. Electronically signed by: Shawn Garcia M.D. 05/06/2020 1:24 PM
--- NOTE | 2020-05-06 13:26 | XRay Report ---
XR knee RT 3V CLINICAL HISTORY: right knee pain, pain COMPARISON: None. DISCUSSION: No acute fractures are visualized. There are moderately advanced osteoarthritic changes w ith marked medial joint compartment narrowing and osteophytic spurring. Degenerative changes are also present within the lateral joint compartment and patellofemoral joint. IMPRESSION: 1. No acute fractures 2. Moderately advanced osteoarthritic change. ACT 112: Negative or not required by law. Electronically signed by: You Campo M.D. 05/06/2020 1:25 PM
--- NOTE | 2020-05-06 13:44 | Electrocardiogram Report ---
Test Reason : Blood Pressure : / mmHG Vent. Rate : 072 BPM Atrial Rate : 072 BPM P-R Int : 178 ms QRS Dur : 066 ms QT Int : 382 ms P-R-T Axes : 037 035 052 degrees QTc Int : 418 ms Normal sinus rhythm Low voltage QRS Borderline ECG When compared with ECG of 08-SEP-2018 18:24, QT has shortened Confirmed by Darryl Joseph ([id number]) on 05/06/2020 1:43:47 PM Referred By: REFERRED SELF Confirmed By:Darryl Joseph
--- NOTE | 2020-05-06 15:08 | History & Physical Report ---
Date of Service May 06, 2020 Assessment & Plan (1) Fall: Unclear events surrounding the fall. Monitor on telemetry floor cardiac arrhythmia. Assess for ACS as below. Suspect mechanical vs. vasovagal s/p micturition. (2) Elevated troponin: Suspected demand-ischemia in setting of likely underlying CAD. Rule out ACS given unclear history of fall, no known history of chest pain or shortness of breath however remains unlikely. Start aspirin 81mg PO daily for primary/secondary prophylaxis given significant risk factors. (3) Laceration of scalp: Follow-up with PCP for staple removal (4) Uncontrolled diabetes mellitus with microalbuminuria: HbA1c 8.8 in February. Repeat with a.m. labs Hold outpatient insulin regiment with glimepiride, empagliflozin, sitagliptin. Start Lantus 10 units twice daily, NovoLog sliding scale aim 110-140, correction 30, carb ratio 10 (5) Hypothyroidism: TSH WNL in February Continue levothyroxine 50 mcg p.o. daily (6) Hypercholesteremia: Repeat lipid panel in a.m. Assess need for statin based upon LDL vs. ASCVD score for primary prevention Admission and Anticipated Discharge Date Admission Date: 05/06/2020 History of Present Illness Chief Complaint: Fall, elevated troponin Primary Care Provider: Figueroa De La Cruz MD Debra Mendoza is an 84-year-old female who presents to the ER due to a fall at home with head laceration. She is unclear about exact history of this but thinks she was sitting on the toilet when she got up and fell over to one side. She denies any loss of consciousness but is unsure exactly what happened. She is unsure whether she felt dizzy or had any chest pain or shortness of breath prior to this episode. She was able to get a self up but hit her head on the floor with a large amount of blood. She currently feels back to her baseline self after having her head laceration stapled. In the ER work-up for helpful was relatively unremarkable other than an elevated troponin. She has multiple risk factors for cardiovascular disease including diabetes, hypertension, hyperlipidemia. She is unable to give me much of a history regarding the events surrounding her fall and troponin increasing recommend observation overnight to trend troponins to assess for ACS versus demand ischemia. EKG unremarkable. Allergies Allergy/AdvReac Type Severity Reaction Status Date / Time metformin AdvReac diarrhea Verified 04/30/20 13:36 Home Medications Home Medications Medication Instructions Recorded Confirmed Type levothyroxine 50 mcg tablet 50 mcg PO DAILY #90 tab 07/31/19 05/06/20 Rx lisinopril 20 mg tablet 20 mg PO DAILY #90 tab 08/05/19 05/06/20 Rx empagliflozin 25 mg tablet 25 mg PO DAILY #90 tab 10/28/19 05/06/20 Rx sitagliptin 100 mg tablet 100 mg PO DAILY #30 tab 01/23/20 05/06/20 Rx glimepiride 4 mg tablet 4 mg PO BID #60 tab 04/14/20 05/06/20 Rx oxybutynin chloride 5 mg tablet 5 mg PO BID #180 tab 04/22/20 05/06/20 Rx omeprazole 40 mg capsule,delayed 40 mg PO BID #180 cap 04/23/20 05/06/20 Rx release Past Med/Surg History Medical History Cholelithiases (05/17/13) Diabetes mellitus type 2, uncontrolled Hypercholesteremia Hypothyroidism Surgical History History of cataract surgery History of colonoscopy History of hysterectomy vaginal History of laparoscopic cholecystectomy History of surgery on arm History of vaginal surgery H/O vaginal sling procedure Family History (Updated 04/30/20 @ 13:41 by Agata Gleason MA) Mother Asthma Diabetes Father Diabetes Sister Diabetes Dementia Brother Cancer Myocardial infarction Other Family history of diabetes mellitus Family history of hypertension Denies family history of Ovarian cancer Prostate cancer Coronary heart disease Breast cancer Colorectal cancer Stroke Social History Smoking Status: Never smoker Second Hand Exposure: No; Do You Dip or Chew Tobacco: No; Tobacco Cessation Education Requested by Patient: No Hx Alcohol Use: No Hx Substance Use: No Preferred Language: Italian Communication Ability: Effective Visual Impairment: No Limitations Hearing Ability: Normal Guest Specialist Required: No Beliefs That Will Affect Care: None marital status: / Current Living Situation: Alone current occupational status: disabled Other Information That Helps Us Care for You: No Feels Safe at Home: Yes Safety Concerns: Feels Safe At This Time Childhood Exposure to Second-Hand Smoke: No caffeine: Yes during the past year weight has: remained stable Dental Care, Regularly: No Physical Activity Frequency: Does not Exercise Seatbelt Use: always Assistive Devices: Cane and Glasses Review of Systems Review of Systems: All systems reviewed & are unremarkable except as noted in HPI & below Physical Exam Constitutional: well developed; + not well nourished and no acute distress Eyes: + anicteric sclerae; normal pupil size ENMT: external ear and nose normal, oropharynx normal Neck: trachea midline, no thyromegaly Respiratory: normal respiratory effort, lungs clear to auscultation Cardiovascular: Rate/Rhythm: regular rate and regular rhythm Heart Sounds: no murmur Vessels: no JVD Extremities: normal capillary refill and + pedal edema (Trace bilateral ankles, equal); no calf tenderness Gastrointestinal (Abdomen): normal bowel sounds, soft, nontender, no hepatosplenomegaly Musculoskeletal: no cyanosis or clubbing, extremities motor strength 5/5 Skin: no rashes, warm and dry Neurologic: moves all extremities and awake; + CN's not intact, no focal motor deficits and not confused Speech / Cognition: normal speech Motor/Sensory: no tremor, no pronator drift and no sensory deficit Psychiatric: A+Ox3, euthymic affect Results & Data Results & Data ([facility]) Vital Signs (Past 12 Hours) Vital Signs Temp Pulse Resp BP Pulse Ox 05/06/20 15:00 72 22 05/06/20 14:31 70 20 120/53 L 05/06/20 14:30 70 20 05/06/20 14:00 75 16 130/63 05/06/20 13:36 74 20 144/67 H 05/06/20 13:34 78 21 95 05/06/20 12:38 73 20 05/06/20 12:33 96 05/06/20 12:30 75 21 137/67 05/06/20 11:44 37.1 C 85 18 167/[address] SCAN OF THE CERVICAL SPINE IMPRESSION: 1. There is no evidence of fracture or subluxation involving the cervical spine. 2. Osteopenia and spondylotic change as above. XR chest 1V not portable IMPRESSION: No acute cardiopulmonary findings. No change in appearance of the chest. HEAD CT NONCONTRAST Impression: No acute intracranial abnormality. Right frontal scalp laceration. XR knee RT 3V IMPRESSION: 1. No acute fractures 2. Moderately advanced osteoarthritic change. XR shoulder RT min 2V routine IMPRESSION: 1. No acute fracture or dislocation within the right shoulder. 2. 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 3. No change in a 1.1 cm oval-shaped calcific/ossific density along the inferior aspect the glenoid which could reflect a joint body. ECG Indication: chest pain Rate (beats per minute): 72 Comparison ECG Date: from (September 08, 2018) Change: no significant change Code Status & VTE Plan Code Status DNR/DNI VTE Prophylaxis Plan VTE Prophylaxis will be ordered: Yes PG Care Time/CCT Total # of Minutes Spent Total Time Spent with Patient: Total time spent is greater than 50% in coordination of care (as documented) at patient's floor/unit and/or counseling patient: Coding Level of Care Code 52581 OBS Care - Level 3 Diagnoses Fall W19.XXXA Elevated troponin R77.8 Laceration of scalp S01.01XA Encounter type: initial encounter Uncontrolled diabetes mellitus with microalbuminuria E11.29; E11.65; R80.9 Hypothyroidism E03.9 Hypercholesteremia E78.00 (1) Laceration of scalp Encounter type: initial encounter Qualified Code(s): S01.01XA - Laceration without foreign body of scalp, initial encounter
[2020-05-06] MEDS ORDERED: GLUCAGON FOR INJ 1 MG VIAL SQ PRN (16:09)
[2020-05-06] MEDS ORDERED: CARBOHYDRATES FOR HYPOGLYCEMIA PO PRN (16:09)
[2020-05-06] MEDS ORDERED: NITROGLYCERIN SL 0.4 MG/TAB TAB SL PRN (16:09)
[2020-05-06] MEDS ORDERED: ONDANSETRON INJ 2 MG/ML 2 ML VIAL IV PRN (16:09)
[2020-05-06] MEDS ORDERED: DEXTROSE 50% 50 ML SYRINGE IV PRN (16:09)
[2020-05-06] MEDS ORDERED: ACETAMINOPHEN 325 MG TAB PO PRN (16:09)
[2020-05-06] MEDS ORDERED: GLUCOSE 40% GEL 15 GM TUBE PO PRN (16:09)
[2020-05-06] MEDS ORDERED: GLUCOSE 10 TABS/TUBE PO PRN (16:09)
[2020-05-06 17:11] LABS: Appearance Urine Turbid (Clear); Bacteria Urine Automated 3+ (Negative); Bilirubin Urine Negative (Negative); Blood Urine 3+ (Negative); Color Urine Yellow; Epithelial Cell Urine Auto >30 /lpf (0-5); Glucose Urine UA 3+ (Negative); Ketones Urine Negative (Negative); Leukocyte Esterase Urine 2+ (Negative); Nitrite Urine Positive (Negative); Protein Urine 1+ (Negative); RBC Urine Automated >30 /hpf (0-4); Specific Gravity Urine 1.023 (1.000-1.030); Urobilinogen Urine Negative (Negative); WBC Urine Automated >30 /hpf (0-5)
[2020-05-06 17:32] LABS: Cast Urine Automated 0 /lpf (0-5)
[2020-05-06] MEDS: ASPIRIN 81 MG ECTAB PO SCH (17:34)
[2020-05-06] MEDS: INSULIN ASPART 100 UNITS/ML 3 ML PEN SC SCH ×2 (17:35→20:48)
[2020-05-06] MEDS: OXYBUTYNIN CHLORIDE 5 MG TAB PO SCH (20:45)
[2020-05-06] MEDS: METOPROLOL TARTRATE 25 MG TAB PO SCH (20:45)
[2020-05-06] MEDS: PANTOprazole 40 MG TAB PO SCH (20:46)
[2020-05-06] MEDS: INSULIN GLARGINE SOLOSTAR 100 UNITS/ML 3 ML PEN SC SCH (20:47)
[2020-05-07] MEDS: DICLOFENAC SOD 1% GEL 100 GM TUBE EXT PRN ×2 (03:04→08:30)
[2020-05-07] MEDS ORDERED: LEVOTHYROXINE SODIUM 50 MCG TABLET PO SCH (06:30)
[2020-05-07 06:54] LABS: Basophils # (auto) 0.01 K/uL (0-0.2); Basophils % (auto) 0.1 %; Eosinophils # (auto) 0.21 K/uL (0-0.5); Eosinophils % (auto) 2.6 %; Hematocrit (blood only) 38.9 % (37-47); Hemoglobin 13.1 g/dL (12.0-16.0); Immature Granulocytes # (auto) 0.02 K/uL (0.00-0.02); Immature Granulocytes % (auto) 0.2 %; Lymphocytes % (auto) 33.5 %; Mean Corpuscular Hemoglobin 31.2 pg (25-34); Mean Corpuscular Hgb Conc 33.7 g/dL (32-36); Mean Corpuscular Volume 92.6 fL (80-100); Mean Platelet Volume 9.6 fL (7.4-10.4); Monocytes # (auto) 0.61 K/uL (0.11-0.59); Monocytes % (auto) 7.6 %; Neutrophils # (auto) 4.51 K/uL (1.4-6.5); Platelet Count 308 K/uL (130-400); RDW Standard Deviation 47.4 fL (36.4-46.3); White Blood Count 8.06 K/uL (4.8-10.8)
[2020-05-07 07:21] LABS: BUN Creatinine Ratio 24.9 (10-20); Calcium 9.3 mg/dl (8.5-10.1); Creatinine Clr Calc Pharmacy 21.4 ml/min; Est GFR (African American) 31.3; Potassium 4.1 mmol/L (3.5-5.1)
[2020-05-07 07:22] LABS: Estimated Average Glucose 214 mg/dl; Hemoglobin A1C 9.1 % (4.5-5.6)
[2020-05-07 07:44] LABS: Troponin I 0.086 ng/ml (0-0.045)
[2020-05-07] MEDS: INSULIN GLARGINE SOLOSTAR 100 UNITS/ML 3 ML PEN SC SCH (08:34)
[2020-05-07] MEDS: ASPIRIN 81 MG ECTAB PO SCH (08:34)
[2020-05-07] MEDS: PANTOprazole 40 MG TAB PO SCH (08:35)
[2020-05-07] MEDS: METOPROLOL TARTRATE 25 MG TAB PO SCH (08:35)
[2020-05-07] MEDS: OXYBUTYNIN CHLORIDE 5 MG TAB PO SCH (08:35)
[2020-05-07] MEDS: INSULIN ASPART 100 UNITS/ML 3 ML PEN SC SCH ×2 (08:40→12:43)
[2020-05-07] MEDS ORDERED: lisinopril 20 MG TAB PO SCH (09:00)
--- NOTE | 2020-05-07 16:26 | Discharge Summary ---
Date of Service May 07, 2020 Admission HPI Per Admitting Provider Debra Mendoza is an 84-year-old female who presents to the ER due to a fall at home with head laceration. She is unclear about exact history of this but thinks she was sitting on the toilet when she got up and fell over to one side. She denies any loss of consciousness but is unsure exactly what happened. She is unsure whether she felt dizzy or had any chest pain or shortness of breath prior to this episode. She was able to get a self up but hit her head on the floor with a large amount of blood. She currently feels back to her baseline self after having her head laceration stapled. In the ER work-up for helpful was relatively unremarkable other than an elevated troponin. She has multiple risk factors for cardiovascular disease including diabetes, hypertension, hyperlipidemia. She is unable to give me much of a history regarding the events surrounding her fall and troponin increasing recommend observation overnight to trend troponins to assess for ACS versus demand ischemia. EKG unremarkable. Principal Diagnosis Fall; elevated troponin Discharge Exam Constitutional WD/WN, vitals as above Eyes EOM intact bilaterally; no conjunctival abnormality ENMT external ear and nose normal, oropharynx normal Neck trachea midline, no thyromegaly normal visual inspection Respiratory normal respiratory effort, lungs clear to auscultation no respiratory distress Cardiovascular RRR, no murmur, no edema Gastrointestinal (Abdomen) Inspection/Auscultation: abdomen normal to inspection; abdomen not distended Musculoskeletal no cyanosis or clubbing, extremities motor strength 5/5 Skin no rashes, warm and dry Neurologic moves all extremities and awake Psychiatric Orientation: alert, oriented to person and cooperative Discharge Data Allergies Allergy/AdvReac Type Severity Reaction Status Date / Time metformin AdvReac diarrhea Verified 04/30/20 13:36 Consultations 05/06/20 14:50 ED Decision to Admit Stat Ordered Studies 05/06/20 12:11 CT cervical spine wo con Stat 05/06/20 12:12 CT head/brain wo con Stat Diabetes Follow up Diabetes Follow-up Needed for HgbA1c >9% Hospital Course (1) Fall: Unclear events surrounding the fall. Monitor on telemetry floor cardiac arrhythmia. Assess for ACS as below. - Suspect mechanical vs. vasovagal s/p micturition. No issues while in the hospital. BP did run low (100/60); however, admitting provider had started her on metoprolol, so hard to know what her usual BP runs at. She does not check it at home per her daughter. - By discharge, she was walking around the hospital room without assistance. Requested multiple times to go home. (2) PATRICIA (acute kidney injury): Baseline Cr ~1.1 - 1.3, eGFR ~40-45. - Cr up to 1.7 on discharge. Possibly due to some lower BP as admitting provider started her on beta-leslie and her BP was on the low end (100/60). - Discussed with the patient who still wanted to go home. Advised her to hold her lisinopril and drink plenty of fluids. Will talk with PCP about when to restart lisinopril. (3) Elevated troponin: Suspected demand-ischemia in setting of likely underlying CAD. Rule out ACS given unclear history of fall, no known history of chest pain or shortness of breath however remains unlikely. - Troponins were largely stable in the hospital with only a peak of 0.187. No chest pain or EKG changes to indicate ischemia. The patient was NOT interested in further testing in the hospital and asked to go home first thing in the morning. Given her lack of symptoms, I felt it was acceptable to defer this to PCP. (4) Laceration of scalp: Follow-up with PCP for staple removal. (5) Uncontrolled diabetes mellitus with microalbuminuria: HbA1c 8.8 in February. Repeat with a.m. labs - Discharged on home regimen; follow up with PCP. (6) Hypothyroidism: TSH WNL in February - Continue levothyroxine 50 mcg p.o. daily (7) Hypercholesteremia: Assess need for statin based upon LDL vs. ASCVD score for primary prevention Total Time Total Time Spent Total Time Spent (In Minutes): 35 Discharge Plan Discharge Items Patient Disposition: Home - Self-Care Reason For Visit: ELEVATED TROPONIN Discharge Diagnosis: Fall; elevated troponin Activity: Resume your previous activity Non-emergency contact: Primary Care Provider Call non-emergency contact if: your symptoms worsen Follow-up/Referrals: Figueroa De La Cruz III, MD [Primary Care Provider] - 05/13/20 11:30 am (You have an appt with Dr De La Cruz on MondayMay 13 at 1130am. It is important that you keep this appt, if it does not fit your schedule please call [phone] to reschedule. ) Diet: Carb Consistent or DM2 and Heart Healthy Addtl Attending Provider Instructions: Ms. Mendoza, You came to the hospital after a fall. Luckily, apart from the cut on your forehead, you did not have any additional injuries. You didn't have any broken bones. The reason they kept you in the hospital was that one of your labs was a bit high that relates to your heart health. Luckily, this remained stable and you were not having any chest pain symptoms, so we do not feel you need further time in the hospital. If you discuss this issue with your PCP, Dr. De La Cruz may recommend getting a stress test eventually. Please hold your lisinopril (blood pressure medication) until you see Dr. De La Cruz. Your kidney function was not at its baseline, and I think it is due to the slightly lower blood pressure and this medication. Please see Dr. De La Cruz in his office in the next 1-2 weeks to be sure you're doing ok after your fall and to check on your kidney function. Pending Studies at Discharge: No Stand-Alone Forms: My [facility] Polybiotics, Smoking Cessation Medications and DC Order Prescriptions: Continued levothyroxine 50 mcg tablet 50 mcg PO DAILY Qty: 90 RF: 3 Jardiance 25 mg tablet 25 mg PO DAILY Qty: 90 RF: 3 Januvia 100 mg tablet 100 mg PO DAILY Qty: 30 RF: 5 glimepiride 4 mg tablet 4 mg PO BID Qty: 60 RF: 11 oxybutynin chloride 5 mg tablet 5 mg PO BID Qty: 180 RF: 1 omeprazole 40 mg capsule,delayed release(DR/EC) 40 mg PO BID Qty: 180 RF: 3 Discontinued lisinopril 20 mg tablet 20 mg PO DAILY Qty: 90 RF: 3 Discharge Orders: Discharge Order (Routine); Ordered 05/07/20 Ordered By: Charan Rodríguez Admission Data Admit Date/Time: 05/06/20 14:40 Attending Provider: Charan Rodríguez Admit Provider: Wolfgang Galvez Primary Care Provider: Figueroa De La Cruz III Other Providers: Charan Rodríguez Other Interventions: Discharge Summary Assessment (RN) Last Done: 05/07/20 11:04 Coding Level of Care Code 11643 OBS Care - Discharge Diagnoses Fall W19.XXXA Encounter type: initial encounter PATRICIA (acute kidney injury) N17.9 Elevated troponin R77.8 Laceration of scalp S01.01XA Encounter type: initial encounter Uncontrolled diabetes mellitus with microalbuminuria E11.29; E11.65; R80.9 Hypothyroidism E03.9 Hypercholesteremia E78.00
== END 2020-05-07 13:28 | disposition home or self-care (01) ==
LOC: 2N 11:36 → ED 11:36 → SUATTDRO 14:40 → 2N 15:24

== ENCOUNTER 2024-02-02 10:12 | Inpatient (IN) ==
--- NOTE | 2024-02-02 11:12 | Emergency Department Note ---
History of Present Illness General Chief complaint: Weakness Stated complaint: LEG PAIN, NUMBNESS Time Seen by Provider: 02/02/24 11:06 Source: patient, RN notes reviewed and old records reviewed (01/22/2024-outpatient primary care visit for UTI) Mode of arrival: ambulatory Limitations: no limitations History of Present Illness Maximum Pain Intensity: 2 This patient brought in by EMS after having weakness. She was treated recently with Cipro for UTI. She had a culture on January 21 which showed sinclair sensitive E. coli. The patient did fall this morning she was feeling generally weak. She had pain in her left knee but that is been chronic and she does not think she injured she denies any injury in the fall no syncope no chest pain or shortness of breath. She has been feeling weak all over she was on the floor and could not get up she crawled around. She has had some dysuria and loose stool she tells me. No fever. She does have a mild headache. She does not think she hurt her head. She feels diffusely weak but nonfocally. Home Medications Medication Instructions Recorded Confirmed Type vlgjupxf-gkn-[id number] acid 0.4 1 tab PO QAM 02/07/21 02/02/24 History mg-lycopene 300 mcg-lutein 250 mcg tablet (Centrum Silver) diaper,brief,adult,disposable #104 ea 11/09/21 01/22/24 Rx (Depend Underwear For Women Large) rosuvastatin 5 mg tablet 5 mg PO DAILY #90 tabs 01/16/23 02/02/24 Rx flash glucose scanning reader #1 ea 03/02/23 01/22/24 Rx (FreeStyle Best 2 [place]) flash glucose sensor (FreeStyle #1 ea 03/02/23 01/22/24 Rx Best 2 Sensor kit) blood-glucose meter (Accu-Chek #1 ea 03/10/23 01/22/24 Rx Misty Plus Meter) levothyroxine 50 mcg tablet 50 mcg PO QAM #90 tabs 04/13/23 02/02/24 Rx blood sugar diagnostic (Accu-Chek #100 ea 08/03/23 01/22/24 Rx Misty Plus test strips) lancets (Accu-Chek Softclix #100 ea 08/03/23 01/22/24 Rx Lancets) glimepiride 4 mg tablet 4 mg PO BID #180 tabs 01/09/24 02/02/24 Rx olmesartan 5 mg tablet 5 mg PO QAM 02/02/24 02/02/24 History omeprazole 40 mg capsule,delayed 40 mg PO BID 02/02/24 02/02/24 History release semaglutide 7 mg tablet 7 mg PO QAM 02/02/24 02/02/24 History Allergies Allergy/AdvReac Type Severity Reaction Status Date / Time sulfamethoxazole Allergy Hives Verified 02/02/24 12:18 [From Bactrim] trimethoprim [From Bactrim] Allergy Hives Verified 02/02/24 12:18 metformin AdvReac diarrhea Verified 02/02/24 12:18 Past Med/Surg History Problem List (Updated 02/02/24 @ 13:21 by Michi Laek PA-C) HTN (hypertension) Urinary tract infection (Acute) Elevated CK (Acute) Effusion of knee joint, left (Acute) Osteoarthritis of left knee (Acute) Acute dehydration (Acute) Fall (Acute) Weakness (Acute) Diabetes mellitus with microalbuminuria Uterine prolapse (Acute) Hypercholesteremia (Chronic) Hypothyroidism (Chronic) Lymphadenopathy of head and neck Urinary symptom or sign Hematuria Microscopic hematuria Recurrent UTI (urinary tract infection) Incomplete emptying of bladder Chronic cystitis Cystocele Urinary incontinence 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 Medical History Cholelithiases (05/17/13) Surgical History History of vaginal surgery H/O vaginal sling procedure History of surgery on arm History of hysterectomy vaginal History of laparoscopic cholecystectomy History of cataract surgery History of colonoscopy Family History Mother Asthma Diabetes Father Diabetes Sister Diabetes Dementia Brother Cancer Myocardial infarction Other Family history of diabetes mellitus Family history of hypertension Denies family history of Ovarian cancer Prostate cancer Coronary heart disease Breast cancer Colorectal cancer Stroke Social History Smoking Status: Never smoker Second Hand Exposure: No; Do You Dip or Chew Tobacco: No; Hx Alcohol Use: No Hx Substance Use: No Preferred Language: Senegalese Communication Ability: Effective Visual Impairment: No Limitations 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 Beliefs That Will Affect Care: None marital status: / Current Living Situation: Alone current occupational status: disabled Feels Safe at Home: Yes Childhood Exposure to Second-Hand Smoke: No Diet: regular caffeine: Yes during the past year weight has: remained stable Dental Care, Regularly: No Physical Activity Frequency: Does not Exercise Seatbelt Use: always Sunscreen Use: No Assistive Devices: Cane, Denture - Upper, Glasses and Walker Review of Systems A total of 10 systems reviewed and were otherwise negative Physical Exam Vital Signs Vital Signs - 24 hr 02/02/24 10:26 02/02/24 12:21 02/02/24 13:03 Temperature 36.7 C Temperature Source Skin Pulse Rate 90 90 86 Pulse Rate from SpO2 Sensor 91 H 86 Respiratory Rate 18 24 20 Blood Pressure 128/64 127/92 132/71 Blood Pressure Mean 85 103 91 Pulse Oximetry 97 97 96 Oxygen Delivery Method Room Air Room Air Room Air Sepsis Recent Fever Within 48 Hours No Sepsis New/Unexplained Change in Mental Status No Sepsis Action Taken by Nursing No Action Required General: Well developed well nourished older female in no acute distress, breathing comfortably on room air. Normal speech HEENT: Normal cephalic atraumatic. Pupils are equal round and reactive to light. Extraocular movements are intact. Oropharynx is pink with moist mucous membranes. No swelling of the mouth lips or tongue. Neck: Supple with a midline trachea. No meningeal signs or stiffness, no JVD or bruits. No Stridor. Chest: Clear to auscultation bilaterally. No wheezes or rhonchi. No increased work of breathing. Heart: Regular rate and rhythm without murmurs or gallops. Abdomen: Soft nontender, nondistended without rebound guarding or rigidity. Extremities: No cyanosis clubbing or edema. No calf tenderness or assymetry. No redness or swelling. She does have some pain around her left knee mostly posteriorly. No deformity of the legs or shortening. Spine/Back. Non tender to palpation. No CVA tenderness Skin: Good turgor without rashes. Neurologic exam: Cranial nerves two through 12 are intact. Motor and sensation are intact and symmetrical throughout. Course Administered Medications Discontinued Medications Sodium Chloride (Nss) 500 mls @ 999 mls/hr IV .Q31M ONE Stop: 02/02/24 11:50 Last Infusion: 02/02/24 13:50 Dose: Infused Documented By: Admin: 02/02/24 11:44 Dose: 999 mls/hr Documented By: PEPE Ceftriaxone Sodium (Rocephin) 2,000 mg in 50 mls @ 100 mls/hr IV NOW STA Stop: 02/02/24 13:13 Last Infusion: 02/02/24 13:51 Dose: Infused Documented By: Admin: 02/02/24 13:08 Dose: 100 mls/hr Documented By: PEPE Sodium Chloride (Nss) 500 mls @ 999 mls/hr IV .Q31M ONE Stop: 02/02/24 13:16 Last Infusion: 02/02/24 13:50 Dose: Infused Documented By: Admin: 02/02/24 13:08 Dose: 999 mls/hr Documented By: PEPE Medical Decision Making Differential Diagnosis UTI, weakness, sepsis, electrolyte or metabolic abnormality, cardiac disease Medical Records Attestation: I reviewed the patient's medical records. Home Medications Current Medication List: was personally reviewed by me Laboratory Data Attestation: I reviewed the patient's lab results. 02/02/24 11:05 02/02/24 11:05 Lab Results 02/02/24 02/02/24 02/02/24 Range/Units 11:05 11:47 12:15 WBC 11.35 H (4.8-10.8) K/ul RBC 3.90 L (4.20-5.40) M/uL Hgb 12.3 (12.0-16.0) g/dl Hct 36.2 L (37.0-47.0) % MCV 92.8 (80.0-100.0) fL MCH 31.5 (25.0-34.0) pg MCHC 34.0 (32.0-36.0) g/dL RDW Std Deviation 46.3 (36.4-46.3) fL RDW Coeff of Barry 13.6 (11.5-14.5) % Plt Count 219 (130-400) K/uL MPV 9.5 (9.4-12.4) fL Immature Gran % (Auto) 0.5 % Neut % (Auto) 81.0 % Lymph % (Auto) 10.6 % [place] % (Auto) 7.7 % Eos % (Auto) 0.0 % Baso % (Auto) 0.2 % Neut # (Auto) 9.20 H (1.40-6.50) K/uL Lymph # (Auto) 1.20 (1.20-3.40) K/uL [place] # (Auto) 0.87 H (0.11-0.59) K/uL Eos # (Auto) 0.00 (0.00-0.50) K/uL Baso # (Auto) 0.02 (0.00-0.20) K/uL Immature Gran # (Auto) 0.06 (0.01-0.20) K/uL PT 11.1 (9.0-12.0) Seconds INR 1.0 (0.9-1.1) APTT 32 H (21-31) Seconds PTT Ratio 1.2 Sodium 133 L (136-145) mmol/L Potassium 4.1 (3.5-5.1) mmol/L Chloride 103 (98-107) mmol/L Carbon Dioxide 19 L (21-32) mmol/L Anion Gap 11 (3-11) BUN 39 H (6-23) mg/dl Creatinine 1.48 H (0.6-1.2) mg/dl Est Cr Clr Drug Dosing Not Reportable Est GFR ( Amer) 36.8 ml/min Est GFR (Non-Af Amer) 31.7 ml/min BUN/Creatinine Ratio 26.4 H (10-20) Glucose 266 H (70-99(Fasting)) mg/dl Lactate 1.8 (0.4-2.0) mmol/L Calcium 8.0 L (8.6-10.3) mg/dl Total Bilirubin 0.9 (0.2-1.0) mg/dl AST 24 (13-39) U/L ALT 20 (7-52) U/L Alkaline Phosphatase 49 (34-104) U/L Total Creatine Kinase 529 H (26-192) U/L Troponin I High Sens 26.0 H (0-14) pg/ml Total Protein 7.6 (6.0-8.3) gm/dl Albumin 4.2 (3.4-5.0) gm/dl Globulin 3.4 (2.5-4.0) gm/dl Albumin/Globulin Ratio 1.2 (0.9-2) Urine Color Yellow Urine Appearance Cloudy A (Clear) Urine pH 5.5 (4.5-7.5) POC Urine pH (4.5-7.5) Ur Specific [place] 1.019 (1.000-1.030) Urine Protein 2+ H (Negative) POC Urine Protein (Negative) Urine Glucose (UA) 1+ H (Negative) POC Ur Glucose (UA) (Normal) Urine Ketones Negative (Negative) POC Urine Ketones (Negative) Urine Blood 3+ H (Negative) POC Urine Blood (Negative) Urine Nitrite Negative (Negative) POC Urine Nitrite (Negative) Urine Bilirubin Negative (Negative) POC Urine Bilirubin (Negative) Urine Urobilinogen Negative (Negative) POC Urine Urobilinogen (Normal) Ur Leukocyte Esterase 1+ H (Negative) POC U Leukocyte Esteras (Negative) Urine WBC (Auto) 6-10 H (0-5) /hpf Urine RBC (Auto) >20 H (0-2) /hpf U Hyaline Cast (Auto) >20 H (0-2) /lpf U Epithel Cells (Auto) 3-5 H (0-2) /hpf Urine Bacteria (Auto) None Seen (None Seen) Granular Casts Present A (None Prsent) /lpf SARS-CoV-2, RNA, NAAT NEGATIVE (NEGATIVE) 02/02/24 Range/Units 12:21 WBC (4.8-10.8) K/ul RBC (4.20-5.40) M/uL Hgb (12.0-16.0) g/dl Hct (37.0-47.0) % MCV (80.0-100.0) fL MCH (25.0-34.0) pg MCHC (32.0-36.0) g/dL RDW Std Deviation (36.4-46.3) fL RDW Coeff of Barry (11.5-14.5) % Plt Count (130-400) K/uL MPV (9.4-12.4) fL Immature Gran % (Auto) % Neut % (Auto) % Lymph % (Auto) % [place] % (Auto) % Eos % (Auto) % Baso % (Auto) % Neut # (Auto) (1.40-6.50) K/uL Lymph # (Auto) (1.20-3.40) K/uL [place] # (Auto) (0.11-0.59) K/uL Eos # (Auto) (0.00-0.50) K/uL Baso # (Auto) (0.00-0.20) K/uL Immature Gran # (Auto) (0.01-0.20) K/uL PT (9.0-12.0) Seconds INR (0.9-1.1) APTT (21-31) Seconds PTT Ratio Sodium (136-145) mmol/L Potassium (3.5-5.1) mmol/L Chloride (98-107) mmol/L Carbon Dioxide (21-32) mmol/L Anion Gap (3-11) BUN (6-23) mg/dl Creatinine (0.6-1.2) mg/dl Est Cr Clr Drug Dosing Est GFR ( Amer) ml/min Est GFR (Non-Af Amer) ml/min BUN/Creatinine Ratio (10-20) Glucose (70-99(Fasting)) mg/dl Lactate (0.4-2.0) mmol/L Calcium (8.6-10.3) mg/dl Total Bilirubin (0.2-1.0) mg/dl AST (13-39) U/L ALT (7-52) U/L Alkaline Phosphatase (34-104) U/L Total Creatine Kinase (26-192) U/L Troponin I High Sens (0-14) pg/ml Total Protein (6.0-8.3) gm/dl Albumin (3.4-5.0) gm/dl Globulin (2.5-4.0) gm/dl Albumin/Globulin Ratio (0.9-2) Urine Color Urine Appearance (Clear) Urine pH (4.5-7.5) POC Urine pH 5 (4.5-7.5) Ur Specific [place] (1.000-1.030) Urine Protein (Negative) POC Urine Protein Trace H (Negative) Urine Glucose (UA) (Negative) POC Ur Glucose (UA) 50 H (Normal) Urine Ketones (Negative) POC Urine Ketones Negative (Negative) Urine Blood (Negative) POC Urine Blood 250 H (Negative) Urine Nitrite (Negative) POC Urine Nitrite Negative (Negative) Urine Bilirubin (Negative) POC Urine Bilirubin Negative (Negative) Urine Urobilinogen (Negative) POC Urine Urobilinogen Normal (Normal) Ur Leukocyte Esterase (Negative) POC U Leukocyte Esteras Negative (Negative) Urine WBC (Auto) (0-5) /hpf Urine RBC (Auto) (0-2) /hpf U Hyaline Cast (Auto) (0-2) /lpf U Epithel Cells (Auto) (0-2) /hpf Urine Bacteria (Auto) (None Seen) Granular Casts (None Prsent) /lpf SARS-CoV-2, RNA, NAAT (NEGATIVE) Imaging Data Attestation: I personally reviewed and interpreted this imaging study as follows: My Impression: Head CTno hemorrhage or mass effect seen Chest x-rayno acute infiltrate, failure, pneumothorax seen Knee x-rayno fracture. Radiologist's Impression: Chest X-Ray 02/02/24 10:30 SINGLE VIEW CHEST CLINICAL HISTORY: Fall. FINDINGS: An AP, portable, upright chest radiograph is compared to study dated 02/07/2021. The heart is enlarged noting atherosclerotic calcification of the thoracic aorta. The pulmonary vasculature is noncongested. Chronic interstitial thickening is similar to previous. There is bibasilar scarring/atelectasis. No airspace consolidation or large pleural effusion is identified. No pneumothorax is seen. The skeletal structures are osteopenic. The bony thorax is grossly intact. Cholecystectomy clips are seen in the upper abdomen. IMPRESSION: Cardiomegaly with no acute cardiopulmonary abnormality identified. ACT 112: Negative or not required by law. Electronically signed by: Johnson Ahumada M.D. 02/02/2024 11:[address] 02/02/24 11:19 CT SCAN OF THE BRAIN WITHOUT IV CONTRAST CLINICAL HISTORY: Falls. Generalized weakness. COMPARISON STUDY: CT of the brain dated 05/06/2020. TECHNIQUE: Unenhanced axial CT scan of the brain is performed from the vertex to the skull base. A dose lowering technique was utilized adhering to the principles of ALARA. CT DOSE: 547.75 mGy.cm FINDINGS: Brain parenchyma: There is age-related involutional change noting moderate subcortical and periventricular microangiopathic disease. There is no hemorrhage, mass effect, or evidence of acute territorial ischemia by CT criteria. [place]-white matter differentiation is preserved. No extra-axial fluid collection is seen. Ventricles, sulci, cisterns: Prominent secondary to involutional change. Intracranial vasculature: There is atherosclerotic calcification of the cavernous carotid and vertebral arteries. Calvarium: Unremarkable. Sinuses and mastoids: The visualized paranasal sinuses are clear. The mastoid air cells are well pneumatized. Orbits: The bony orbits are grossly intact. There are bilateral ocular lens implants. IMPRESSION: There is no hemorrhage, mass effect, or evidence of acute territorial ischemia by CT criteria. ACT 112: Negative or not required by law. Electronically signed by: Johnson Ahumada M.D. 02/02/2024 11:41 AM Knee X-Ray 02/02/24 11:20 LEFT KNEE 2 VIEWS CLINICAL HISTORY: Posterior knee pain. Fall. FINDINGS: AP and crosstable lateral views of the left knee are obtained. No prior studies are available for comparison at the time of dictation. The skeletal structures are osteopenic. No acute fracture is identified. There is severe degenerative narrowing in the medial compartment with bony sclerosis and irregularity. Moderate to severe narrowing is seen in the lateral and patellofemoral compartments. Chondrocalcinosis is seen in the medial and lateral compartments. There is a large joint effusion. Bony overgrowth is seen along the posterior aspect of the distal femur and proximal tibia. There are marginal osteophytes and patellar enthesophytes. Prepatellar soft tissue swelling is observed. Advanced atherosclerotic calcification is noted in the popliteal artery. IMPRESSION: 1. Soft tissue swelling and large joint effusion with no radiographic evidence of acute fracture. If there is clinical concern for occult fracture a CT scan could be considered. 2. Osteopenia with degenerative change and chondrocalcinosis as above. Electronically signed by: Johnson Ahumada M.D. 02/02/2024 11:[address] 02/02/24 13:[address] DOSE: 980.97 mGy.cm HISTORY: L3 central back pain ?fracture TECHNIQUE: Multiaxial CT images of the lumbar spine were performed and reformatted in the sagittal and coronal plane without the use of contrast. A dose lowering technique was utilized adhering to the principles of ALARA. COMPARISON: None. FINDINGS: No fracture or subluxation within the lumbar spine. The visualized sacrum is intact. Severe disc space narrowing at T11-T12, L3-L4, L4-L5. Mild disc space narrowing at L5-S1. Moderate to severe facet degenerative changes throughout the lumbar spine. Paravertebral soft tissues are unremarkable. There is moderate central canal narrowing at L3-L4 and L4-L5 due to the broad-based posterior disc bulges. A single stable mildly enlarged right retroperitoneal lymph node on image 233 measuring 14 mm. This is of doubtful clinical significance given the long-term stability. Moderate calcified plaque within the normal caliber abdominal aorta. IMPRESSION: 1. No fracture or subluxation within the lumbar spine. 2. Degenerative changes as described above. ACT 112: Negative or not required by law. Electronically signed by: Mike Sexton M.D. 02/02/2024 2:09 PM ECG Data Attestation: I personally reviewed and interpreted this ECG as follows: Indication: + weakness Rate (beats per minute): 86 Rhythm: + normal sinus ECG Intervals/blocks: + Normal QRS, + Normal QT and + Normal OR ECG Accident: + Normal ECG ST segments: + Normal ST segments ECG Findings: + Poor R wave progression; no PACs or no PVCs Comparison ECG Date: from (02/07/2021) Change: no significant change MDM Narrative This patient comes in as described above. She was placed in room A10. She was placed on a quality assurance monitor IV access established multiple blood testing was obtained. She felt weak and fell today and crawled around on the floor. IV access was established. she was hydrated normal saline EKG shows no ischemic changes or ectopy she had no syncope. I extensive workup was done including multiple blood testing as well as urinalysis, EKG, chest x-ray, and head CT. I also x-rayed her left knee. She was reassessed frequently. Her urinalysis does show findings consistent with UTI. I discussed the antibiotic choice and consultation with her ED pharmacist and we will put her on Rocephin 2 g IV. She was given additional IV fluids. Her white count is elevated but her lactic acid is not. Her BUN and creatinine are mildly elevated likely consistent with prerenal/dehydration. CK is mildly elevated as well likely from being on the ground but not high enough to say that she has rhabdo at this point. CAT scans were unremarkable for any acute findings her knee x-ray shows an effusion which is likely old that she has been having chronic pain there. She does feel generally weak and I do think needs to be admitted/observed for hydration observation antibiotics and have consulted and discussed case with the [facility] hospitalist who will see in the ER for these measures Continuous cardiac monitoring: Orders placed in EMR for continuous quality assurance monitor: Upon my evaluation patient noted to be in normal sinus rhythm with a rate of 85 Impression & Plan Weakness, Fall, Acute dehydration, Osteoarthritis of left knee, Effusion of knee joint, left, Elevated CK, Urinary tract infection Discharge Plan Visit Data Chief Complaint: Weakness Stated Complaint: LEG PAIN, NUMBNESS ED Provider: Chapin Bergman Discharge Problem: Weakness, Fall, Acute dehydration, Osteoarthritis of left knee, Effusion of knee joint, left, Elevated CK, Urinary tract infection Forms Stand Alone Forms: [facility] Prescriptions Prescriptions: No Action (DME) Depend Underwear For Women g [facility] See Rx Instructions .Route Qty: 104 0RF Rx Instructions: Size Large/6 per day rosuvastatin 5 mg tablet 5 mg PO DAILY Qty: 90 3RF Rx Instructions: take in evening. (DME) blood-glucose meter [Accu-Chek Misty Plus Meter] [facility] See Rx Instructions .Route Qty: 1 0RF Rx Instructions: As directed levothyroxine 50 mcg tablet 50 mcg PO QAM Qty: 90 3RF (DME) Accu-Chek Misty Plus test strp Strip See Rx Instructions .ROUTE .MEDSUPPLY Qty: 100 5RF Rx Instructions: Use to test blood sugar 3 times a day (DME) lancets [Accu-Chek Softclix Lancets] [facility] See Rx Instructions .ROUTE .MEDSUPPLY Qty: 100 5RF Rx Instructions: Use to test blood sugar 3 times a day. glimepiride 4 mg tablet 4 mg PO BID Qty: 180 3RF (DME) FreeStyle Best 2 [place] [facility] See Rx Instructions .ROUTE .MEDSUPPLY Qty: 1 0RF Rx Instructions: As directed (DME) FreeStyle Best 2 Sensor Kit See Rx Instructions .Route Qty: 1 6RF Rx Instructions: change every 14 days Centrum Silver 0.4-300-250 mg-mcg-mcg Tablet 1 tab PO QAM omeprazole 40 mg capsule,delayed release(DR/EC) 40 mg PO BID Rx Instructions: TAKE 1 CAPSULE BY MOUTH TWICE A DAY olmesartan 5 mg tablet 5 mg PO QAM semaglutide 7 mg tablet 7 mg PO QAM Referrals Referrals: Bashir,Nj P., DO [Primary Care Provider] - Discharge Problem: Fall Qualifiers: Encounter type: initial encounter Qualified Code(s): W19.XXXA - Unspecified fall, initial encounter Osteoarthritis of left knee Qualifiers: Osteoarthritis type: primary Qualified Code(s): M17.12 - Unilateral primary osteoarthritis, left knee
[2024-02-02 11:20] LABS: Basophils # (auto) 0.02 K/uL (0.00-0.20); Basophils % (auto) 0.2 %; Hematocrit (blood only) 36.2 % (37.0-47.0); Hemoglobin 12.3 g/dl (12.0-16.0); Immature Granulocytes # (auto) 0.06 K/uL (0.01-0.20); Immature Granulocytes % (auto) 0.5 %; Lymphocytes % (auto) 10.6 %; Mean Corpuscular Hemoglobin 31.5 pg (25.0-34.0); Mean Corpuscular Volume 92.8 fL (80.0-100.0); Mean Platelet Volume 9.5 fL (9.4-12.4); Monocytes # (auto) 0.87 K/uL (0.11-0.59); Monocytes % (auto) 7.7 %; Platelet Count 219 K/uL (130-400); RDW Coefficient of Variation 13.6 % (11.5-14.5); RDW Standard Deviation 46.3 fL (36.4-46.3); White Blood Count 11.35 K/ul (4.8-10.8)
--- NOTE | 2024-02-02 11:31 | XRay Report ---
SINGLE VIEW CHEST CLINICAL HISTORY: Fall. FINDINGS: An AP, portable, upright chest radiograph is compared to study dated 02/07/2021. The heart i s enlarged noting atherosclerotic calcification of the thoracic aorta. The pulmonary vasculature is n oncongested. Chronic interstitial thickening is similar to previous. There is bibasilar scarring/atel ectasis. No airspace consolidation or large pleural effusion is identified. No pneumothorax is seen. The skeletal structures are osteopenic. The bony thorax is grossly intact. Cholecystectomy clips are seen in the upper abdomen. IMPRESSION: Cardiomegaly with no acute cardiopulmonary abnormality identified. ACT 112: Negative or not required by law. Electronically signed by: Johnson Ahumada M.D. 02/02/2024 11:30 AM
--- NOTE | 2024-02-02 11:35 | XRay Report ---
LEFT KNEE 2 VIEWS CLINICAL HISTORY: Posterior knee pain. Fall. FINDINGS: AP and crosstable lateral views of the left knee are obtained. No prior studies are availab le for comparison at the time of dictation. The skeletal structures are osteopenic. No acute fracture is identified. There is severe degenerative narrowing in the medial compartment with bony sclerosis and irregularity. Moderate to severe narrowing is seen in the lateral and patellofemoral compartments . Chondrocalcinosis is seen in the medial and lateral compartments. There is a large joint effusion. Bony overgrowth is seen along the posterior aspect of the distal femur and proximal tibia. There are marginal osteophytes and patellar enthesophytes. Prepatellar soft tissue swelling is observed. Advanc ed atherosclerotic calcification is noted in the popliteal artery. IMPRESSION: 1. Soft tissue swelling and large joint effusion with no radiographic evidence of acute fracture. If there is clinical concern for occult fracture a CT scan could be considered. 2. Osteopenia with degenerative change and chondrocalcinosis as above. Electronically signed by: Johnson Ahumada M.D. 02/02/2024 11:33 AM
[2024-02-02 11:36] LABS: Alanine Aminotransferase 20 U/L (7-52); Albumin Globulin Ratio 1.2 (0.9-2); Albumin Level 4.2 gm/dl (3.4-5.0); Alkaline Phosphatase 49 U/L (34-104); Anion Gap 11 (3-11); Aspartate Aminotransferase 24 U/L (13-39); BUN Creatinine Ratio 26.4 (10-20); Bilirubin,Total 0.9 mg/dl (0.2-1.0); Blood Urea Nitrogen 39 mg/dl (6-23); Carbon Dioxide 19 mmol/L (21-32); Chloride 103 mmol/L (98-107); Est GFR (African American) 36.8 ml/min; Est GFR (Non-African American) 31.7 ml/min; Globulin 3.4 gm/dl (2.5-4.0); Glucose 266 mg/dl (70-99(Fasting)); Potassium 4.1 mmol/L (3.5-5.1); Sodium 133 mmol/L (136-145); Total Protein 7.6 gm/dl (6.0-8.3)
--- NOTE | 2024-02-02 11:43 | CT Scan Report ---
CT SCAN OF THE BRAIN WITHOUT IV CONTRAST CLINICAL HISTORY: Falls. Generalized weakness. COMPARISON STUDY: CT of the brain dated 05/06/2020. TECHNIQUE: Unenhanced axial CT scan of the brain is performed from the vertex to the skull base. A do se lowering technique was utilized adhering to the principles of ALARA. CT DOSE: 547.75 mGy.cm FINDINGS: Brain parenchyma: There is age-related involutional change noting moderate subcortical and periventri cular microangiopathic disease. There is no hemorrhage, mass effect, or evidence of acute territorial ischemia by CT criteria. Palacios-white matter differentiation is preserved. No extra-axial fluid collec tion is seen. Ventricles, sulci, cisterns: Prominent secondary to involutional change. Intracranial vasculature: There is atherosclerotic calcification of the cavernous carotid and vertebr al arteries. Calvarium: Unremarkable. Sinuses and mastoids: The visualized paranasal sinuses are clear. The mastoid air cells are well pneu matized. Orbits: The bony orbits are grossly intact. There are bilateral ocular lens implants. IMPRESSION: There is no hemorrhage, mass effect, or evidence of acute territorial ischemia by CT [place] kolb. ACT 112: Negative or not required by law. Electronically signed by: Johnson Ahumada M.D. 02/02/2024 11:41 AM
[2024-02-02] MEDS: SODIUM CHLORIDE 0.9% 500 ML IV ONE ×2 (11:44→13:08)
[2024-02-02 11:47] LABS: Partial Thromboplastin Ratio 1.2; Partial Thromboplastin Time 32 Seconds (21-31); Prothrombin Time 11.1 Seconds (9.0-12.0)
[2024-02-02 11:53] LABS: Creatine Kinase 529 U/L (26-192)
[2024-02-02 12:24] LABS: POC Urine Bilirubin Negative (Negative); POC Urine Blood 250 (Negative); POC Urine Glucose 50 (Normal); POC Urine Ketones Negative (Negative); POC Urine Leukocytes Negative (Negative); POC Urine Nitrite Negative (Negative); POC Urine Protein Trace (Negative); POC Urine Urobilinogen Normal (Normal); POC Urine pH 5 (4.5-7.5)
[2024-02-02 12:39] LABS: Appearance Urine Cloudy (Clear); Bacteria Urine Automated None Seen (None Seen); Bilirubin Urine Negative (Negative); Blood Urine 3+ (Negative); Cast Urine Automated >20 /lpf (0-2); Color Urine Yellow; Glucose Urine UA 1+ (Negative); Granular Casts Urine Present /lpf (None Prsent); Ketones Urine Negative (Negative); Leukocyte Esterase Urine 1+ (Negative); Nitrite Urine Negative (Negative); Protein Urine 2+ (Negative); RBC Urine Automated >20 /hpf (0-2); Specific Gravity Urine 1.019 (1.000-1.030); Urobilinogen Urine Negative (Negative); pH Urine 5.5 (4.5-7.5)
--- NOTE | 2024-02-02 12:54 | History & Physical Report ---
Date of Service February 02, 2024 Assessment & Plan (1) Fall: Plan: Admit to med/telemetry Currently stable nontoxic-appearing Patient sustained a mechanical fall while walking into her kitchen today, denies symptoms such as lightheadedness/dizziness, chest pain, shortness of breath prior to the fall Patient explains that she did not hit her head or lose consciousness, landed on her buttocks Denies current head, neck, back pain Patient does endorse tenderness with palpation of the bilateral hips and bilateral knee pain CT of the head and brain without contrast and chest x-ray were negative for acute findings X-ray of the left knee noted soft tissue swelling large joint effusion with no radiographic evidence of acute fracture Will obtain x-ray of the bilateral hips/pelvis for further evalu Lidocaine patch and Tylenol for pain PT/OT consults have been placed as patient will likely need rehab at the time of discharge Fall/aspiration precautions Heart healthy/DM type II diet Bilateral SCDs for DVT prophylaxis AM CBC, CMP, mag, PT/INR (2) Urinary tract infection: Plan: Patient was treated with a course of ciprofloxacin after diagnosed with a UTI on 01/22/2024 Per culture result from 01/22/2024, patient grew pansensitive E. coli Patient's UA is equivocal for infection however, patient still is endorsing dysuria and urinary frequency Status post 1 dose of ceftriaxone in the ED, we will continue with ceftriaxone for now Follow urine culture (3) Elevated CK: Plan: CK obtained on arrival is elevated at 529 Patient appears mildly dehydrated exam but is without PATRICIA or liver dysfunction Status post 1 L NSS in the ED, we will give 1 L LR at 80 mL/h on admission for further hydration Monitor a.m. CMP (4) Diabetes mellitus with microalbuminuria: Plan: Hold semaglutide, glimepiride Monitor BSG ACHS, goal is [id number] Start CF of 50 and CR of 15 ACHS for now Will hold basal insulin as patient's renal function is elevated compared to baseline but not technically an PATRICIA at this time, want to avoid hypoglycemia Adjust regimen as needed (5) HTN (hypertension): Plan: Currently stable Will hold home telmisartan today as patient missed her dose and renal function is slightly elevated compared to baseline If renal function is back to baseline tomorrow can restart Plan The patient was discussed with Dr. Galvez at the time of admission History of Present Illness Chief Complaint: Weakness, fall Primary Care Provider: Nj Bashir DO Richardson is an 88-year-old female with a past medical history significant for diabetes mellitus type 2, hypertension, hypothyroidism, and hyperlipidemia who presented to the [facility] ED on 02/02/2024 via EMS after sustaining a fall at home. She remained stable while in the ED. Labs were significant for a leukocytosis of 11 with neutrophil predominance of 9, creatinine of 1.48 (baseline is near 1.0), BUN of 39, bicarb of 19 with anion gap within normal limits, corrected sodium of 136, glucose of 266, total CK of 529, high-sensitivity troponin of 26, and equivocal UA. CT of the head and brain without contrast and chest x-ray were negative for acute findings. X-ray of the left knee was read as soft tissue swelling and large joint effusion with no radiographic evidence of acute fracture. Clinical concern for occult fracture a CT scan would be considered. Osteopenia with degenerative changes and chondrocalcinosis of the blood. Prior to admission the patient was given 1 L normal saline and a dose of ceftriaxone. Patient was lying in bed in no acute distress at time of exam with her daughter bedside, history was obtained from both. The patient states that she was walking from her bedroom to the kitchen to get something to drink as she had not had anything to eat since waking. She was using her cane when she felt as though it caught on the floor causing her to lose her balance and fall backwards, she fell and landed on her buttocks. She denies hitting her head or losing consciousness. Denies current head, neck, back pain. She has some hip pain but the majority of her pain is in the bilateral knees. Denies recent chest pain, shortness of breath, abdominal pain, nausea/vomiting, diarrhea. When asked, she is still experiencing dysuria despite recently completing a course of antibiotics for UTI. Denies recent hematuria. We discussed CODE STATUS she and her daughter confirm that she is a DNR/DNI and her daughter is her primary decision-maker if she cannot make decisions for self. She still feels as though she is having pain in the bilateral knees and will have trouble walking herself. Please refer to Dr. Galvez's attestation for any changes to the treatment plan Allergies Allergy/AdvReac Type Severity Reaction Status Date / Time sulfamethoxazole Allergy Hives Verified 02/02/24 12:18 [From Bactrim] trimethoprim [From Bactrim] Allergy Hives Verified 02/02/24 12:18 metformin AdvReac diarrhea Verified 02/02/24 12:18 Home Medications Medication Instructions Recorded Confirmed Type [id number] acid 0.4 1 tab PO QAM 02/07/21 02/02/24 History mg-lycopene 300 mcg-lutein 250 mcg tablet (Centrum Silver) diaper,brief,adult,disposable #104 ea 11/09/21 01/22/24 Rx (Depend Underwear For Women Large) rosuvastatin 5 mg tablet 5 mg PO DAILY #90 tabs 01/16/23 02/02/24 Rx flash glucose scanning reader #1 ea 03/02/23 01/22/24 Rx (FreeStyle Best 2 Ona) flash glucose sensor (FreeStyle #1 ea 03/02/23 01/22/24 Rx Best 2 Sensor kit) blood-glucose meter (Accu-Chek #1 ea 03/10/23 01/22/24 Rx Misty Plus Meter) levothyroxine 50 mcg tablet 50 mcg PO QAM #90 tabs 04/13/23 02/02/24 Rx blood sugar diagnostic (Accu-Chek #100 ea 08/03/23 01/22/24 Rx Misty Plus test strips) lancets (Accu-Chek Softclix #100 ea 08/03/23 01/22/24 Rx Lancets) glimepiride 4 mg tablet 4 mg PO BID #180 tabs 01/09/24 02/02/24 Rx olmesartan 5 mg tablet 5 mg PO QAM 02/02/24 02/02/24 History omeprazole 40 mg capsule,delayed 40 mg PO BID 02/02/24 02/02/24 History release semaglutide 7 mg tablet 7 mg PO QAM 02/02/24 02/02/24 History magnesium chloride 64 mg 64 mg PO BID #60 tabs 02/07/24 Rx (magnesium chloride) tablet,delayed release (Mag 64) Past Med/Surg History Problem List HTN (hypertension) Urinary tract infection (Acute) Elevated CK (Acute) Effusion of knee joint, left (Acute) Osteoarthritis of left knee (Acute) Acute dehydration (Acute) Fall (Acute) Weakness (Acute) Diabetes mellitus with microalbuminuria Uterine prolapse (Acute) Hypercholesteremia (Chronic) Hypothyroidism (Chronic) Lymphadenopathy of head and neck Urinary symptom or sign Hematuria Microscopic hematuria Recurrent UTI (urinary tract infection) Incomplete emptying of bladder Chronic cystitis Cystocele Urinary incontinence 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 Medical History Cholelithiases (05/17/13) Surgical History History of vaginal surgery H/O vaginal sling procedure History of surgery on arm History of hysterectomy vaginal History of laparoscopic cholecystectomy History of cataract surgery History of colonoscopy Family History Mother Asthma Diabetes Father Diabetes Sister Diabetes Dementia Brother Cancer Myocardial infarction Other Family history of diabetes mellitus Family history of hypertension Denies family history of Ovarian cancer Prostate cancer Coronary heart disease Breast cancer Colorectal cancer Stroke Social History Smoking Status: Former smoker Second Hand Exposure: No; Do You Dip or Chew Tobacco: No; Hx Alcohol Use: No Hx Substance Use: No Preferred Language: Persian Communication Ability: Effective Visual Impairment: No Limitations Hearing Ability: Normal Credit Risk Modeler Required: No Beliefs That Will Affect Care: None marital status: / Current Living Situation: Alone current occupational status: disabled Feels Safe at Home: Yes Childhood Exposure to Second-Hand Smoke: No Diet: regular caffeine: Yes during the past year weight has: remained stable Dental Care, Regularly: No Physical Activity Frequency: Does not Exercise Seatbelt Use: always Sunscreen Use: No Assistive Devices: Cane Physical Exam Physical Exam: Physical Exam: General: In no acute distress, stated age, well-nourished, non-toxic appearing HEENT: Normocephalic, atraumatic, no scleral icterus, pupils around round, symmetrical, and reactive to light, dry mucus membranes, trachea midline, no thyromegaly Chest/Pulm: No respiratory distress, symmetrical chest expansion, clear breath sounds throughout Cardiac: RRR, no murmurs noted Abdomen: Negative for ascites and bruising, normoactive bowel sounds, soft, non-tender to palpation throughout Musculoskeletal: Symmetrical and without signs of acute trauma, upper with full ROM >Patient with mild tenderness to palpation of the BL hips without step off or crepitus >No obvious swelling or trauma of the BL knees, patient experiences pain with flexion of the BL knees Extremities: Radial, dorsalis pedis, and posterior tibial pulses are intact and symmetrical, no edema noted in the BL LE's Skin: Warm, dry, no rashes , lesions, or scars noted Neuro: Alert and oriented to person, place, month, year, and president, no focal defects, no tremors noted Psych: No acute distress, calm and cooperative during the exam Results & Data Results & Data Vital Signs (Past 12 Hours) Vital Signs Temp Pulse Resp BP Pulse Ox O2 Del Method 02/02/24 12:21 90 24 127/92 97 Room Air 02/02/24 10:26 36.7 C 90 18 128/64 97 Room Air Laboratory Results Abnormal lab results 02/02/24 02/02/24 02/02/24 Range/Units 11:05 12:15 12:21 WBC 11.35 H (4.8-10.8) K/ul RBC 3.90 L (4.20-5.40) M/uL Hct 36.2 L (37.0-47.0) % Neut # (Auto) 9.20 H (1.40-6.50) K/uL [place] # (Auto) 0.87 H (0.11-0.59) K/uL APTT 32 H (21-31) Seconds Sodium 133 L (136-145) mmol/L Carbon Dioxide 19 L (21-32) mmol/L BUN 39 H (6-23) mg/dl Creatinine 1.48 H (0.6-1.2) mg/dl BUN/Creatinine Ratio 26.4 H (10-20) Glucose 266 H (70-99(Fasting)) mg/dl Calcium 8.0 L (8.6-10.3) mg/dl Total Creatine Kinase 529 H (26-192) U/L Troponin I High Sens 26.0 H (0-14) pg/ml Urine Appearance Cloudy A (Clear) Urine Protein 2+ H (Negative) POC Urine Protein Trace H (Negative) Urine Glucose (UA) 1+ H (Negative) POC Ur Glucose (UA) 50 H (Normal) Urine Blood 3+ H (Negative) POC Urine Blood 250 H (Negative) Ur Leukocyte Esterase 1+ H (Negative) Urine WBC (Auto) 6-10 H (0-5) /hpf Urine RBC (Auto) >20 H (0-2) /hpf U Hyaline Cast (Auto) >20 H (0-2) /lpf U Epithel Cells (Auto) 3-5 H (0-2) /hpf Granular Casts Present A (None Prsent) /lpf Diagnostic Findings Chest X-Ray 02/02/24 10:30 SINGLE VIEW CHEST CLINICAL HISTORY: Fall. FINDINGS: An AP, portable, upright chest radiograph is compared to study dated 02/07/2021. The heart is enlarged noting atherosclerotic calcification of the thoracic aorta. The pulmonary vasculature is noncongested. Chronic interstitial thickening is similar to previous. There is bibasilar scarring/atelectasis. No airspace consolidation or large pleural effusion is identified. No pneumothorax is seen. The skeletal structures are osteopenic. The bony thorax is grossly intact. Cholecystectomy clips are seen in the upper abdomen. IMPRESSION: Cardiomegaly with no acute cardiopulmonary abnormality identified. ACT 112: Negative or not required by law. Electronically signed by: Johnson Ahumada M.D. 02/02/2024 11:[address] 02/02/24 11:19 CT SCAN OF THE BRAIN WITHOUT IV CONTRAST CLINICAL HISTORY: Falls. Generalized weakness. COMPARISON STUDY: CT of the brain dated 05/06/2020. TECHNIQUE: Unenhanced axial CT scan of the brain is performed from the vertex to the skull base. A dose lowering technique was utilized adhering to the principles of ALARA. CT DOSE: 547.75 mGy.cm FINDINGS: Brain parenchyma: There is age-related involutional change noting moderate subcortical and periventricular microangiopathic disease. There is no hemorrhage, mass effect, or evidence of acute territorial ischemia by CT criteria. Palacios-white matter differentiation is preserved. No extra-axial fluid collection is seen. Ventricles, sulci, cisterns: Prominent secondary to involutional change. Intracranial vasculature: There is atherosclerotic calcification of the cavernous carotid and vertebral arteries. Calvarium: Unremarkable. Sinuses and mastoids: The visualized paranasal sinuses are clear. The mastoid air cells are well pneumatized. Orbits: The bony orbits are grossly intact. There are bilateral ocular lens implants. IMPRESSION: There is no hemorrhage, mass effect, or evidence of acute territorial ischemia by CT criteria. ACT 112: Negative or not required by law. Electronically signed by: Johnson Ahumada M.D. 02/02/2024 11:41 AM Knee X-Ray 02/02/24 11:20 LEFT KNEE 2 VIEWS CLINICAL HISTORY: Posterior knee pain. Fall. FINDINGS: AP and crosstable lateral views of the left knee are obtained. No prior studies are available for comparison at the time of dictation. The skeletal structures are osteopenic. No acute fracture is identified. There is severe degenerative narrowing in the medial compartment with bony sclerosis and irregularity. Moderate to severe narrowing is seen in the lateral and patellofemoral compartments. Chondrocalcinosis is seen in the medial and lateral compartments. There is a large joint effusion. Bony overgrowth is seen along the posterior aspect of the distal femur and proximal tibia. There are marginal osteophytes and patellar enthesophytes. Prepatellar soft tissue swelling is observed. Advanced atherosclerotic calcification is noted in the popliteal artery. IMPRESSION: 1. Soft tissue swelling and large joint effusion with no radiographic evidence of acute fracture. If there is clinical concern for occult fracture a CT scan could be considered. 2. Osteopenia with degenerative change and chondrocalcinosis as above. Electronically signed by: Johnson Ahumada M.D. 02/02/2024 11:33 AM ECG Additional Comments: Normal sinus rhythm When compared with ECG of 07-FEB-2021 20:48, No significant change was found Confirmed by Mike Sky ([id number]) on 02/02/2024 12:54:26 PM Code Status & VTE Plan Code Status DNR/DNI VTE Prophylaxis Plan VTE Prophylaxis will be ordered: Yes Supervising Physician Co-Signing Physician Notes I personally saw and examined the patient. I verified all bryant points and agree with Michi [place] PA-C with the following exceptions and/or additions: 88 year old female who presents to the ER after a fall. No chest pain, shortness of breath or dizziness prior to falling. Generalized pain but mostly in knees last night. Notably having ongoing dysuria since UTI diagnosis at beginning of the month. O/E A&Ox3, HS RRR, no murmurs, Chest CTAB, Abdo SNT, no CVA tenderness A/P Fall - PT/OT UTI - ceftriaxone, follow up urine culture PG Care Time/CCT Total # of Minutes Spent Total Time Spent with Patient: Total time spent is greater than 50% in coordination of care (as documented) at patient's floor/unit and/or counseling patient: Coding [place] [address] INT INP/OBS CARE 2/55MIN Patient Type Established Medical Decision Making Moderate Complexity Diagnoses Fall W19.XXXA Encounter type: initial encounter Urinary tract infection N39.0 Elevated CK R74.8 Diabetes mellitus with microalbuminuria E11.29; R80.9 HTN (hypertension) I10 (1) Fall Encounter type: initial encounter Qualified Code(s): W19.XXXA - Unspecified fall, initial encounter
--- NOTE | 2024-02-02 12:55 | Electrocardiogram Report ---
Test Reason : Blood Pressure : / mmHG Vent. Rate : 086 BPM Atrial Rate : 086 BPM P-R Int : 172 ms QRS Dur : 062 ms QT Int : 360 ms P-R-T Axes : 044 008 062 degrees QTc Int : 430 ms Normal sinus rhythm When compared with ECG of 07-FEB-2021 20:48, No significant change was found Confirmed by Mike Sky ([id number]) on 02/02/2024 12:54:26 PM Referred By: Confirmed By:Quincy Sky
[2024-02-02] MEDS ORDERED: GLUCOSE 10 TAB/TUBE PO PRN (12:59)
[2024-02-02] MEDS ORDERED: DEXTROSE 50% 50 ML SYRINGE IV PRN (12:59)
[2024-02-02] MEDS ORDERED: GLUCOSE 40% GEL 15 GM TUBE PO PRN (12:59)
[2024-02-02] MEDS ORDERED: CARBOHYDRATES FOR HYPOGLYCEMIA PO PRN (12:59)
[2024-02-02] MEDS ORDERED: GLUCAGON FOR INJ 1 MG VIAL SQ PRN (12:59)
[2024-02-02] MEDS: cefTRIAXone SODIUM 2,000 MG/50 ML BAG IV STA (13:08)
--- NOTE | 2024-02-02 14:11 | CT Scan Report ---
LUMBAR SPINE CT CT DOSE: 980.97 mGy.cm HISTORY: L3 central back pain ?fracture TECHNIQUE: Multiaxial CT images of the lumbar spine were performed and reformatted in the sagittal an d coronal plane without the use of contrast. A dose lowering technique was utilized adhering to the principles of ALARA. COMPARISON: None. FINDINGS: No fracture or subluxation within the lumbar spine. The visualized sacrum is intact. Severe disc space narrowing at T11-T12, L3-L4, L4-L5. Mild disc space narrowing at L5-S1. Moderate to sever e facet degenerative changes throughout the lumbar spine. Paravertebral soft tissues are unremarkable . There is moderate central canal narrowing at L3-L4 and L4-L5 due to the broad-based posterior disc bulges. A single stable mildly enlarged right retroperitoneal lymph node on image 233 measuring 14 mm . This is of doubtful clinical significance given the long-term stability. Moderate calcified plaque within the normal caliber abdominal aorta. IMPRESSION: 1. No fracture or subluxation within the lumbar spine. 2. Degenerative changes as described above. ACT 112: Negative or not required by law. Electronically signed by: Mike Sexton M.D. 02/02/2024 2:09 PM
[2024-02-02] MEDS: LACTATED RINGER'S 1,000 ML IV SCH (15:00)
--- NOTE | 2024-02-02 16:13 | XRay Report ---
SINGLE VIEW PELVIS; SINGLE VIEW RIGHT HIP; SINGLE VIEW LEFT HIP CLINICAL HISTORY: Fall. Bilateral hip pain. FINDINGS: AP views of the pelvis and frog leg views of the right and left hip are correlated with pel pamela CT dated 09/16/2015. The skeletal structures are osteopenic. There is no radiographic evidence of acute fracture involving the hips or bony pelvis. Mild arthritic change and joint space narrowing is seen in the hips. There is degenerative sclerosis of the sacroiliac joints and pubic symphysis. The o verlying soft tissues are within normal limits. Small phleboliths are noted in the pelvis. Lumbosacra l spondylosis is partially imaged. 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 These are unchanged from the [address] Cholecystectomy clips a re noted. IMPRESSION: No acute bony abnormality is identified. Electronically signed by: Johnson Ahumada M.D. 02/02/2024 4:11 PM
[2024-02-02] MEDS: traMADol HCL 50 MG TABLET PO STA (17:34)
[2024-02-02] MEDS: INSULIN ASPART PER UNIT CHARGE SC SCH (18:23)
[2024-02-02] MEDS: PANTOprazole 40 MG TAB PO SCH (20:14)
[2024-02-02] MEDS: ACETAMINOPHEN 325 MG TAB PO PRN (21:29)
[2024-02-03] MEDS: CYCLOBENZAPRINE HCL 5 MG TAB PO ONE (01:20)
[2024-02-03] MEDS: LEVOTHYROXINE SODIUM 50 MCG TABLET PO SCH (05:41)
[2024-02-03 07:20] LABS: Basophils # (auto) 0.01 K/uL (0.00-0.20); Basophils % (auto) 0.1 %; Eosinophils # (auto) 0.08 K/uL (0.00-0.50); Eosinophils % (auto) 1.1 %; Hematocrit (blood only) 30.3 % (37.0-47.0); Hemoglobin 10.4 g/dl (12.0-16.0); Immature Granulocytes # (auto) 0.04 K/uL (0.01-0.20); Immature Granulocytes % (auto) 0.6 %; Lymphocytes # (auto) 1.62 K/uL (1.20-3.40); Lymphocytes % (auto) 23.1 %; Mean Corpuscular Hemoglobin 31.9 pg (25.0-34.0); Mean Corpuscular Hgb Conc 34.3 g/dL (32.0-36.0); Mean Corpuscular Volume 92.9 fL (80.0-100.0); Mean Platelet Volume 9.3 fL (9.4-12.4); Monocytes # (auto) 0.68 K/uL (0.11-0.59); Monocytes % (auto) 9.7 %; Neutrophils # (auto) 4.57 K/uL (1.40-6.50); Neutrophils % (auto) 65.4 %; Platelet Count 173 K/uL (130-400); RDW Coefficient of Variation 13.6 % (11.5-14.5); RDW Standard Deviation 46.6 fL (36.4-46.3); Red Blood Count 3.26 M/uL (4.20-5.40)
--- NOTE | 2024-02-03 07:48 | Hospitalist Progress Note ---
Date of Service February 03, 2024 Assessment & Plan (1) Fall: Plan: 88yo F sustained a mechanical fall while walking into her kitchen and had been down for a period of time/unable to get up due to pain or contact her daughter and was able to get ahold of neighbors to come assist/call [phone] She denied symptoms such as lightheadedness/dizziness, chest pain, shortness of breath prior to the fall and that she landed on her buttocks. No LOC/head trauma Painful to palpation b/l hips and knees Ct head negative for acute process X ray L knee noted large joint effusion w/o evidence for fracture B/l Hip/pelvis without acute fracture. CT lumbar spine negative for acute fracture or subluxation, does note moderate central canal narrowing at L3-L4 and L4-L5 due to broad-based posterior disc bulges however incidentally notable for single mildly enlarged R retroperitoneal lymph note and doubtful clinical significance given termination clerk stability. Pain control w/ tylenol and lidocaine patch ordered and PT/OT consults placed Fall/aspiration precautions DVT proph: SCDs for now 02/02 Admitted following fall, ambulatory dysfunction. X ray L knee w/ large effusion w/o fracture. Can consult ortho to see if need CT, ?aspiration CK 529 on admission, had been provided 1.5L NSS in ER, additional 1L NS @ 80cc/hr overnight --CK added to AM labs for comparison, 457 Statin placed on HOLD with her dehydration/granular casts on UA/elevated renal function from admission, do note patient on semaglutide PO daily (and reported episode of n/v couple days prior despite doesn't appear w/ good PO intake/diet as "hard to cook for one"). Also had to stop her prior jardiance 2nd to UTIs. Is on glimepiride 4mg PO BID but in elderly patient at risk w/ poor PO intake may need to consider alternative. Will check A1c w/ AM labs to see where she's at. SSI while inpatient. +urine cx from 01/21 w/ pansensitive Ecoli, blood cultures obtained on admission however does not appear any urine cx pending. Added urine cx, noting has already gotten dose Ceftriaxone on admission Does have RBC and blood on UA however, ?underlying kidney stone vs other with her back pain?need for any ct abd imaging --> She does report some blood in her urine couple of days prior, also that she has a hx of kidney stones and her back pain is improved since abx for UTI. Discussed w/ supervising provider and will order CTAP for further eval underlying issue Will also repeat TSH given elevated to 8.3 in October as ordered by PCP but was on 50mcg Synthroid at that time and remains on such -- WNL on repeat MAG LOW 1.1, IV replacement ordered. Does have PACs on monitor and will continue telemetry monitoring/repeat mag w/ AM labs (2) Urinary tract infection: Plan: Recently tx w/ course of Ciprofloxacin for UTI dx on 01/21 (ecoli, pansensitive) UA equivocal for infection however continued dysuria/frequency reported on admission Ceftriaxone in ER Urine cx ordered/sent this morning but has been on abx as was reflex from ER and not cx from start, however has had improvement since being on antibiotics Monitor blood cultures, urine cx as Continue Ceftriaxone for now Olmesartan on hold, renal function improved closer to baseline Checking CTAP to eval for underlying issue given her reported hx of kidney stones and hematuria this past week. Also notable R retroperitoneal lymph node on CT lumbar spine which apparently is chronic/stable (3) Elevated CK: Plan: CK 529, likely 2nd to being down on the ground with her fall/unable to get up Also suspect dehydration as above contributing Given 1L NSS in ER, additional 1L LR on admission. CK added to AM labs for comparison and still elevated to 447, STATIN placed on HOLD Additional 500cc NSS while getting CTAP w/ contrast and monitor PO intake/CK in AM. TSH checked and wnl as above. Renal function back to baseline. Lyme testing negative (4) Diabetes mellitus with microalbuminuria: Plan: Hold semaglutide, glimepiride --?best meds for this patient. Was unable to c ontinue jardiance 2nd to recurrent UTIs. W/ poor PO intake at baseline is at risk for hypoglycemia BSG AC/HS, SSI while inpatient Tightening SSI parameters but will hold off basal at this time A1c w/ Am labs likely need med adjustment/sliding scale if patient agreeable at dc for safety? DM educator consulted (5) HTN (hypertension): Plan: BP 106/65 Telmisartan on hold, IVF as outlined for dehydration Continue to hold telmisartan for now,renal function is back to baseline. Monitor BPs off for now prior to resuming. May need reduction (6) Hypomagnesemia: Plan: Mag 1.1 on check, 3gm IV ordered. ?2nd to PPI use as on omeprazole 40mg BID Monitor on repeat Continue telemetry monitoring Plan continued inpatient stay PT/OT consults pending Possible dc next 24-48 hours as patient worried about animals at home but discussed wanting to see how she does w/ rehab/checking a couple more things but will see how she does w/ therapy Admission and Anticipated Discharge Date Admission Date: February 02, 2024 Supervising Physician Co-Signing Physician Notes The patient was not seen by me. The chart was reviewed. Case discussed with HUMBLE Roth. Agree with assessment and plan Subjective Eval this morning, sitting up in the chair. Feeling better but still painful in her legs, worse on the back of her right knee. Eval by ortho, no need for imaging. Discussed CK elevation. She did report when she fell on her butt she was down for a while/unable to get ahold of her daughter and crawled to living room to unlock door and called neighbor who called ambulance. She reports having blood in urine couple days prior, does have lower back pain prior but improving now. When asked about stones, she has hx stones in the past. Loose stool x 1 this morning - monitor for diarrhea/check cdiff if occurs ?infected stone, discussed CT imaging for further eval given repeat infection. Physical Exam Physical Exam: General: 88yo female sitting up in chair, NAD, talking with dietary HEENT: head atraumatic, normocephalic, mm slightly dry, trachea midline Resp; even/unlabored, on room air CV: RRR, no significant mrg (?faint systolic), trace dependent edema, calves supple/nontender and pulses present but does have some posterior knee swelling/tenderness/effusion GI: +BS, slightly distension but soft/nontender : no CVA tenderness (however did report some pain days prior) MSK/Neuro: nonfocal, no slurred speech/facial droop, not confused Psych: AOx3, cooperative with exam Results & Data Results & Data Vital Signs (Past 12 Hours) Vital Signs Temp Pulse Pulse Resp BP Pulse Ox O2 Del Method 02/03/24 03:38 36.6 C 70 16 128/76 97 Room Air 07/12/24 23:26 36.8 C 75 16 129/64 95 Room Air 02/02/24 22:58 72 02/02/24 20:22 79 Laboratory Results 02/03/24 02/02/24 02/02/24 Range/Units 06:50 19:45 17:54 WBC 7.00 (4.8-10.8) K/ul RBC 3.26 L (4.20-5.40) M/uL Hgb 10.4 L (12.0-16.0) g/dl Hct 30.3 L (37.0-47.0) % MCV 92.9 (80.0-100.0) fL MCH 31.9 (25.0-34.0) pg MCHC 34.3 (32.0-36.0) g/dL RDW Std Deviation 46.6 H (36.4-46.3) fL RDW Coeff of Barry 13.6 (11.5-14.5) % Plt Count 173 (130-400) K/uL MPV 9.3 L (9.4-12.4) fL Immature Gran % (Auto) 0.6 % Neut % (Auto) 65.4 % Lymph % (Auto) 23.1 % Benton % (Auto) 9.7 % Eos % (Auto) 1.1 % Baso % (Auto) 0.1 % Neut # (Auto) 4.57 (1.40-6.50) K/uL Lymph # (Auto) 1.62 (1.20-3.40) K/uL Benton # (Auto) 0.68 H (0.11-0.59) K/uL Eos # (Auto) 0.08 (0.00-0.50) K/uL Baso # (Auto) 0.01 (0.00-0.20) K/uL Immature Gran # (Auto) 0.04 (0.01-0.20) K/uL PT (9.0-12.0) Seconds INR (0.9-1.1) APTT (21-31) Seconds PTT Ratio Sodium Pending (136-145) mmol/L Potassium Pending (3.5-5.1) mmol/L Chloride Pending (98-107) mmol/L Carbon Dioxide Pending (21-32) mmol/L Anion Gap Pending (3-11) BUN Pending (6-23) mg/dl Creatinine Pending (0.6-1.2) mg/dl Est Cr Clr Drug Dosing Pending Est GFR ( Amer) Pending ml/min Est GFR (Non-Af Amer) Pending ml/min BUN/Creatinine Ratio Pending (10-20) Glucose Pending (70-99(Fasting)) mg/dl POC Glucose 189 H 157 H (70-99) mg/dl Lactate (0.4-2.0) mmol/L Calcium Pending (8.6-10.3) mg/dl Magnesium Pending Total Bilirubin Pending (0.2-1.0) mg/dl AST Pending (13-39) U/L ALT Pending (7-52) U/L Alkaline Phosphatase Pending (34-104) U/L Total Creatine Kinase (26-192) U/L Troponin I High Sens (0-14) pg/ml Total Protein Pending (6.0-8.3) gm/dl Albumin Pending (3.4-5.0) gm/dl Globulin Pending (2.5-4.0) gm/dl Albumin/Globulin Ratio Pending (0.9-2) Urine Color Urine Appearance (Clear) Urine pH (4.5-7.5) POC Urine pH (4.5-7.5) Ur Specific Hulett (1.000-1.030) Urine Protein (Negative) POC Urine Protein (Negative) Urine Glucose (UA) (Negative) POC Ur Glucose (UA) (Normal) Urine Ketones (Negative) POC Urine Ketones (Negative) Urine Blood (Negative) POC Urine Blood (Negative) Urine Nitrite (Negative) POC Urine Nitrite (Negative) Urine Bilirubin (Negative) POC Urine Bilirubin (Negative) Urine Urobilinogen (Negative) POC Urine Urobilinogen (Normal) Ur Leukocyte Esterase (Negative) POC U Leukocyte Esteras (Negative) Urine WBC (Auto) (0-5) /hpf Urine RBC (Auto) (0-2) /hpf U Hyaline Cast (Auto) (0-2) /lpf U Epithel Cells (Auto) (0-2) /hpf Urine Bacteria (Auto) (None Seen) Granular Casts (None Prsent) /lpf SARS-CoV-2, RNA, NAAT (NEGATIVE) 0702/02/24 02/02/24 Range/Units 12:21 12:15 11:47 WBC (4.8-10.8) K/ul RBC (4.20-5.40) M/uL Hgb (12.0-16.0) g/dl Hct (37.0-47.0) % MCV (80.0-100.0) fL MCH (25.0-34.0) pg MCHC (32.0-36.0) g/dL RDW Std Deviation (36.4-46.3) fL RDW Coeff of Barry (11.5-14.5) % Plt Count (130-400) K/uL MPV (9.4-12.4) fL Immature Gran % (Auto) % Neut % (Auto) % Lymph % (Auto) % Benton % (Auto) % Eos % (Auto) % Baso % (Auto) % Neut # (Auto) (1.40-6.50) K/uL Lymph # (Auto) (1.20-3.40) K/uL Benton # (Auto) (0.11-0.59) K/uL Eos # (Auto) (0.00-0.50) K/uL Baso # (Auto) (0.00-0.20) K/uL Immature Gran # (Auto) (0.01-0.20) K/uL PT (9.0-12.0) Seconds INR (0.9-1.1) APTT (21-31) Seconds PTT Ratio Sodium (136-145) mmol/L Potassium (3.5-5.1) mmol/L Chloride (98-107) mmol/L Carbon Dioxide (21-32) mmol/L Anion Gap (3-11) BUN (6-23) mg/dl Creatinine (0.6-1.2) mg/dl Est Cr Clr Drug Dosing Est GFR ( Amer) ml/min Est GFR (Non-Af Amer) ml/min BUN/Creatinine Ratio (10-20) Glucose (70-99(Fasting)) mg/dl POC Glucose (70-99) mg/dl Lactate 1.8 (0.4-2.0) mmol/L Calcium (8.6-10.3) mg/dl Magnesium Total Bilirubin (0.2-1.0) mg/dl AST (13-39) U/L ALT (7-52) U/L Alkaline Phosphatase (34-104) U/L Total Creatine Kinase (26-192) U/L Troponin I High Sens (0-14) pg/ml Total Protein (6.0-8.3) gm/dl Albumin (3.4-5.0) gm/dl Globulin (2.5-4.0) gm/dl Albumin/Globulin Ratio (0.9-2) Urine Color Yellow Urine Appearance Cloudy A (Clear) Urine pH 5.5 (4.5-7.5) POC Urine pH 5 (4.5-7.5) Ur Specific Hulett 1.019 (1.000-1.030) Urine Protein 2+ H (Negative) POC Urine Protein Trace H (Negative) Urine Glucose (UA) 1+ H (Negative) POC Ur Glucose (UA) 50 H (Normal) Urine Ketones Negative (Negative) POC Urine Ketones Negative (Negative) Urine Blood 3+ H (Negative) POC Urine Blood 250 H (Negative) Urine Nitrite Negative (Negative) POC Urine Nitrite Negative (Negative) Urine Bilirubin Negative (Negative) POC Urine Bilirubin Negative (Negative) Urine Urobilinogen Negative (Negative) POC Urine Urobilinogen Normal (Normal) Ur Leukocyte Esterase 1+ H (Negative) POC U Leukocyte Esteras Negative (Negative) Urine WBC (Auto) 6-10 H (0-5) /hpf Urine RBC (Auto) >20 H (0-2) /hpf U Hyaline Cast (Auto) >20 H (0-2) /lpf U Epithel Cells (Auto) 3-5 H (0-2) /hpf Urine Bacteria (Auto) None Seen (None Seen) Granular Casts Present A (None Prsent) /lpf SARS-CoV-2, RNA, NAAT NEGATIVE (NEGATIVE) 02/02/24 Range/Units 11:05 WBC 11.35 H (4.8-10.8) K/ul RBC 3.90 L (4.20-5.40) M/uL Hgb 12.3 (12.0-16.0) g/dl Hct 36.2 L (37.0-47.0) % MCV 92.8 (80.0-100.0) fL MCH 31.5 (25.0-34.0) pg MCHC 34.0 (32.0-36.0) g/dL RDW Std Deviation 46.3 (36.4-46.3) fL RDW Coeff of Barry 13.6 (11.5-14.5) % Plt Count 219 (130-400) K/uL MPV 9.5 (9.4-12.4) fL Immature Gran % (Auto) 0.5 % Neut % (Auto) 81.0 % Lymph % (Auto) 10.6 % Benton % (Auto) 7.7 % Eos % (Auto) 0.0 % Baso % (Auto) 0.2 % Neut # (Auto) 9.20 H (1.40-6.50) K/uL Lymph # (Auto) 1.20 (1.20-3.40) K/uL Benton # (Auto) 0.87 H (0.11-0.59) K/uL Eos # (Auto) 0.00 (0.00-0.50) K/uL Baso # (Auto) 0.02 (0.00-0.20) K/uL Immature Gran # (Auto) 0.06 (0.01-0.20) K/uL PT 11.1 (9.0-12.0) Seconds INR 1.0 (0.9-1.1) APTT 32 H (21-31) Seconds PTT Ratio 1.2 Sodium 133 L (136-145) mmol/L Potassium 4.1 (3.5-5.1) mmol/L Chloride 103 (98-107) mmol/L Carbon Dioxide 19 L (21-32) mmol/L Anion Gap 11 (3-11) BUN 39 H (6-23) mg/dl Creatinine 1.48 H (0.6-1.2) mg/dl Est Cr Clr Drug Dosing Not Reportable Est GFR ( Amer) 36.8 ml/min Est GFR (Non-Af Amer) 31.7 ml/min BUN/Creatinine Ratio 26.4 H (10-20) Glucose 266 H (70-99(Fasting)) mg/dl POC Glucose (70-99) mg/dl Lactate (0.4-2.0) mmol/L Calcium 8.0 L (8.6-10.3) mg/dl Magnesium Total Bilirubin 0.9 (0.2-1.0) mg/dl AST 24 (13-39) U/L ALT 20 (7-52) U/L Alkaline Phosphatase 49 (34-104) U/L Total Creatine Kinase 529 H (26-192) U/L Troponin I High Sens 26.0 H (0-14) pg/ml Total Protein 7.6 (6.0-8.3) gm/dl Albumin 4.2 (3.4-5.0) gm/dl Globulin 3.4 (2.5-4.0) gm/dl Albumin/Globulin Ratio 1.2 (0.9-2) Urine Color Urine Appearance (Clear) Urine pH (4.5-7.5) POC Urine pH (4.5-7.5) Ur Specific Hulett (1.000-1.030) Urine Protein (Negative) POC Urine Protein (Negative) Urine Glucose (UA) (Negative) POC Ur Glucose (UA) (Normal) Urine Ketones (Negative) POC Urine Ketones (Negative) Urine Blood (Negative) POC Urine Blood (Negative) Urine Nitrite (Negative) POC Urine Nitrite (Negative) Urine Bilirubin (Negative) POC Urine Bilirubin (Negative) Urine Urobilinogen (Negative) POC Urine Urobilinogen (Normal) Ur Leukocyte Esterase (Negative) POC U Leukocyte Esteras (Negative) Urine WBC (Auto) (0-5) /hpf Urine RBC (Auto) (0-2) /hpf U Hyaline Cast (Auto) (0-2) /lpf U Epithel Cells (Auto) (0-2) /hpf Urine Bacteria (Auto) (None Seen) Granular Casts (None Prsent) /lpf SARS-CoV-2, RNA, NAAT (NEGATIVE) Diagnostic Findings Chest X-Ray 02/02/24 10:30 SINGLE VIEW CHEST CLINICAL HISTORY: Fall. FINDINGS: An AP, portable, upright chest radiograph is compared to study dated 02/07/2021. The heart is enlarged noting atherosclerotic calcification of the thoracic aorta. The pulmonary vasculature is noncongested. Chronic interstitial thickening is similar to previous. There is bibasilar scarring/atelectasis. No airspace consolidation or large pleural effusion is identified. No pneumothorax is seen. The skeletal structures are osteopenic. The bony thorax is grossly intact. Cholecystectomy clips are seen in the upper abdomen. IMPRESSION: Cardiomegaly with no acute cardiopulmonary abnormality identified. ACT 112: Negative or not required by law. Electronically signed by: Johnson Ahumada M.D. 02/02/2024 11:[address] 02/02/24 11:19 CT SCAN OF THE BRAIN WITHOUT IV CONTRAST CLINICAL HISTORY: Falls. Generalized weakness. COMPARISON STUDY: CT of the brain dated 05/06/2020. TECHNIQUE: Unenhanced axial CT scan of the brain is performed from the vertex to the skull base. A dose lowering technique was utilized adhering to the principles of ALARA. CT DOSE: 547.75 mGy.cm FINDINGS: Brain parenchyma: There is age-related involutional change noting moderate subcortical and periventricular microangiopathic disease. There is no hemorrhage, mass effect, or evidence of acute territorial ischemia by CT criteria. Palacios-white matter differentiation is preserved. No extra-axial fluid collection is seen. Ventricles, sulci, cisterns: Prominent secondary to involutional change. Intracranial vasculature: There is atherosclerotic calcification of the cavernous carotid and vertebral arteries. Calvarium: Unremarkable. Sinuses and mastoids: The visualized paranasal sinuses are clear. The mastoid air cells are well pneumatized. Orbits: The bony orbits are grossly intact. There are bilateral ocular lens implants. IMPRESSION: There is no hemorrhage, mass effect, or evidence of acute territorial ischemia by CT criteria. ACT 112: Negative or not required by law. Electronically signed by: Johnson Ahumada M.D. 02/02/2024 11:41 AM Knee X-Ray 02/02/24 11:20 LEFT KNEE 2 VIEWS CLINICAL HISTORY: Posterior knee pain. Fall. FINDINGS: AP and crosstable lateral views of the left knee are obtained. No prior studies are available for comparison at the time of dictation. The skeletal structures are osteopenic. No acute fracture is identified. There is severe degenerative narrowing in the medial compartment with bony sclerosis and irregularity. Moderate to severe narrowing is seen in the lateral and patellofemoral compartments. Chondrocalcinosis is seen in the medial and lateral compartments. There is a large joint effusion. Bony overgrowth is seen along the posterior aspect of the distal femur and proximal tibia. There are marginal osteophytes and patellar enthesophytes. Prepatellar soft tissue swelling is observed. Advanced atherosclerotic calcification is noted in the popliteal artery. IMPRESSION: 1. Soft tissue swelling and large joint effusion with no radiographic evidence of acute fracture. If there is clinical concern for occult fracture a CT scan could be considered. 2. Osteopenia with degenerative change and chondrocalcinosis as above. Electronically signed by: Johnson Ahumada M.D. 02/02/2024 11:[address] 02/02/24 13:[address] DOSE: 980.97 mGy.cm HISTORY: L3 central back pain ?fracture TECHNIQUE: Multiaxial CT images of the lumbar spine were performed and reformatted in the sagittal and coronal plane without the use of contrast. A dose lowering technique was utilized adhering to the principles of ALARA. COMPARISON: None. FINDINGS: No fracture or subluxation within the lumbar spine. The visualized sacrum is intact. Severe disc space narrowing at T11-T12, L3-L4, L4-L5. Mild disc space narrowing at L5-S1. Moderate to severe facet degenerative changes throughout the lumbar spine. Paravertebral soft tissues are unremarkable. There is moderate central canal narrowing at L3-L4 and L4-L5 due to the broad-based posterior disc bulges. A single stable mildly enlarged right retroperitoneal lym ph node on image 233 measuring 14 mm. This is of doubtful clinical significance given the long-term stability. Moderate calcified plaque within the normal caliber abdominal aorta. IMPRESSION: 1. No fracture or subluxation within the lumbar spine. 2. Degenerative changes as described above. ACT 112: Negative or not required by law. Electronically signed by: Mike Sexton M.D. 02/02/2024 2:09 PM Hip/Pelvis X-Ray 02/02/24 13:27 SINGLE VIEW PELVIS; SINGLE VIEW RIGHT HIP; SINGLE VIEW LEFT HIP CLINICAL HISTORY: Fall. Bilateral hip pain. FINDINGS: AP views of the pelvis and frog leg views of the right and left hip are correlated with pelvic CT dated 09/16/2015. The skeletal structures are osteopenic. There is no radiographic evidence of acute fracture involving the hips or bony pelvis. Mild arthritic change and joint space narrowing is seen in the hips. There is degenerative sclerosis of the sacroiliac joints and pubic symphysis. The overlying soft tissues are within normal limits. Small phleboliths are noted in the pelvis. Lumbosacral spondylosis is partially imaged. 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 These are unchanged from the [address] Cholecystectomy clips are noted. IMPRESSION: No acute bony abnormality is identified. Electronically signed by: Johnson Ahumada M.D. 02/02/2024 4:11 PM PG Care Time/CCT Total # of Minutes Spent Total Time Spent with Patient: Total time spent is greater than 50% in coordination of care (as documented) at patient's floor/unit and/or counseling patient: Coding Level of Care Code 21611 SUB INP/OBS CARE 3/50MIN Diagnoses Fall W19.XXXA Encounter type: initial encounter Urinary tract infection N39.0 Elevated CK R74.8 Diabetes mellitus with microalbuminuria E11.29; R80.9 HTN (hypertension) I10 Hypomagnesemia E83.42 (1) Fall Encounter type: initial encounter Qualified Code(s): W19.XXXA - Unspecified fall, initial encounter
[2024-02-03 07:52] LABS: Albumin Globulin Ratio 1.1 (0.9-2); Albumin Level 3.3 gm/dl (3.4-5.0); BUN Creatinine Ratio 22.2 (10-20); Bilirubin,Total 0.8 mg/dl (0.2-1.0); Calcium 7.5 mg/dl (8.6-10.3); Creatinine Clr Calc Pharmacy 35.6 ml/min; Est GFR (African American) 53.8 ml/min; Est GFR (Non-African American) 46.4 ml/min; Globulin 2.9 gm/dl (2.5-4.0); Magnesium 1.1 mg/dl (1.7-2.4); Potassium 3.6 mmol/L (3.5-5.1); Total Protein 6.2 gm/dl (6.0-8.3)
[2024-02-03 08:30] LABS: Troponin I High Sensitivity 27.9 pg/ml (0-14)
--- NOTE | 2024-02-03 08:30 | Orthopedic Consultation ---
Date of Service February 03, 2024 Assessment & Plan (1) Osteoarthritis of left knee: Given her mechanism of injury, I do not think this is a new issue with her knees. She says she has been having knee pain for years. She has very limited range of motion of her knees due to the arthritis and she says has been going on for years as well. She uses a cane to ambulate but would like to start using a walker more. She is not having much pain in her hips. I do not see any reason to get a CT scan of her knee at this point. She is not a good candidate for knee replacement surgery. She is orthopedically stable for discharge at this time. She can follow-up with orthopedics in the office for her knees if she wo uld like. She should be using a walker if she feels more comfortable. She can follow-up in our office for cortisone injections in her knees in the future if she would like. History of Present Illness Reason for Consultation: Bilateral knee and bilateral hip pain. Requesting Physician: . Attending Physician: Bo Goddard MD Debra is a pleasant 88-year-old female who lives in an apartment by herself. She fell yesterday backwards onto her buttocks. She was having mild hip pain but more severe bilateral knee pain. Her knees have hurt her for years. She has limited range of motion of her knees. She usually uses a cane to ambulate but she has been wanting to use a walker. She was admitted for ambulatory dysfunction. X-rays of the knees show some advanced osteoarthritis. Orthopedics was consulted to evaluate.. Allergies Allergy/AdvReac Type Severity Reaction Status Date / Time sulfamethoxazole Allergy Hives Verified 02/02/24 12:18 [From Bactrim] trimethoprim [From Bactrim] Allergy Hives Verified 02/02/24 12:18 metformin AdvReac diarrhea Verified 02/02/24 12:18 Home Medications Medication Instructions Recorded Confirmed Type nehmudqo-xbg-[id number] acid 0.4 1 tab PO QAM 02/07/21 02/02/24 History mg-lycopene 300 mcg-lutein 250 mcg tablet (Centrum Silver) diaper,brief,adult,disposable #104 ea 11/09/21 01/22/24 Rx (Depend Underwear For Women Large) rosuvastatin 5 mg tablet 5 mg PO DAILY #90 tabs 01/16/23 02/02/24 Rx flash glucose scanning reader #1 ea 03/02/23 01/22/24 Rx (FreeStyle Best 2 [place]) flash glucose sensor (FreeStyle #1 ea 03/02/23 01/22/24 Rx Best 2 Sensor kit) blood-glucose meter (Accu-Chek #1 ea 03/10/23 01/22/24 Rx Misty Plus Meter) levothyroxine 50 mcg tablet 50 mcg PO QAM #90 tabs 04/13/23 02/02/24 Rx blood sugar diagnostic (Accu-Chek #100 ea 08/03/23 01/22/24 Rx Misty Plus test strips) lancets (Accu-Chek Softclix #100 ea 08/03/23 01/22/24 Rx Lancets) glimepiride 4 mg tablet 4 mg PO BID #180 tabs 01/09/24 02/02/24 Rx olmesartan 5 mg tablet 5 mg PO QAM 02/02/24 02/02/24 History omeprazole 40 mg capsule,delayed 40 mg PO BID 02/02/24 02/02/24 History release semaglutide 7 mg tablet 7 mg PO QAM 02/02/24 02/02/24 History Past Med/Surg History Problem List HTN (hypertension) Urinary tract infection (Acute) Elevated CK (Acute) Effusion of knee joint, left (Acute) Osteoarthritis of left knee (Acute) Acute dehydration (Acute) Fall (Acute) Weakness (Acute) Diabetes mellitus with microalbuminuria Uterine prolapse (Acute) Hypercholesteremia (Chronic) Hypothyroidism (Chronic) Lymphadenopathy of head and neck Urinary symptom or sign Hematuria Microscopic hematuria Recurrent UTI (urinary tract infection) Incomplete emptying of bladder Chronic cystitis Cystocele Urinary incontinence 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 Medical History Cholelithiases (05/17/13) Surgical History History of vaginal surgery H/O vaginal sling procedure History of surgery on arm History of hysterectomy vaginal History of laparoscopic cholecystectomy History of cataract surgery History of colonoscopy Family History Mother Asthma Diabetes Father Diabetes Sister Diabetes Dementia Brother Cancer Myocardial infarction Other Family history of diabetes mellitus Family history of hypertension Denies family history of Ovarian cancer Prostate cancer Coronary heart disease Breast cancer Colorectal cancer Stroke Social History Smoking Status: Former smoker Second Hand Exposure: No; Do You Dip or Chew Tobacco: No; Hx Alcohol Use: No Hx Substance Use: No Preferred Language: Fijian Communication Ability: Effective Visual Impairment: No Limitations Hearing Ability: Normal [place]ayaway Clerk Required: No Beliefs That Will Affect Care: None marital status: / Current Living Situation: Alone current occupational status: disabled Feels Safe at Home: Yes Childhood Exposure to Second-Hand Smoke: No Diet: regular caffeine: Yes during the past year weight has: remained stable Dental Care, Regularly: No Physical Activity Frequency: Does not Exercise Seatbelt Use: always Sunscreen Use: No Assistive Devices: Cane and Denture - Upper Review of Systems All systems reviewed & are unremarkable except as noted in HPI & below. Physical Exam On physical examination of both hips, she has good range of motion no pain in her hips. Examination of her knees show very poor range of motion. She has range of motion from 10 to about 40 degrees in both knees. She does have a 2+ effusion in both knees. She has some pain of the distal femoral condyles.. Constitutional WD/WN, vitals as above Eyes PERRL, conjunctivae normal, anicteric sclerae ENMT external ear and nose normal, oropharynx normal Neck trachea midline, no thyromegaly Respiratory normal respiratory effort Cardiovascular RRR, no murmur, no edema Gastrointestinal (Abdomen) normal bowel sounds, soft, nontender, no hepatosplenomegaly Psychiatric A+Ox3, euthymic affect Results & Data Results & Data Laboratory Results . Diagnostic Findings X-rays of the left knee show severe osteoarthritis with joint space narrowing osteophyte formation and csoa-ch-temd tubulation. I do not see any signs of fracture.. PG Care Time/CCT Total # of Minutes Spent Total Time Spent with Patient: Total time spent is greater than 50% in coordination of care (as documented) at patient's floor/unit and/or counseling patient: Coding Level of Care Code 42196 IN/OBS CONSULT LVL 4,60M Diagnoses Osteoarthritis of left knee M17.12 Osteoarthritis type: primary (1) Osteoarthritis of left knee Osteoarthritis type: primary Qualified Code(s): M17.12 - Unilateral primary osteoarthritis, left knee
[2024-02-03 08:40] LABS: Thyroid Stimulating Hormone 2.877 uIu/ml (0.300-4.500)
[2024-02-03] MEDS: ROSUVASTATIN CALCIUM 5 MG TAB PO SCH (09:17)
[2024-02-03] MEDS: MAGNESIUM SULFATE / D5W 1 GM/100 ML BAG IV SCH (09:24)
[2024-02-03] MEDS: SODIUM CHLORIDE 0.9% 1,000 ML IV SCH (09:32)
[2024-02-03] MEDS ORDERED: PNEUMOCOCCAL VACCINE (PCV20) 20-VAL CONJ-DIP CRM/PF 0.5 ML SYR IM ONE (14:30)
[2024-02-03] MEDS: cefTRIAXone SODIUM 2,000 MG/50 ML BAG IV SCH (15:28)
[2024-02-03] MEDS: OPTIRAY 320 100ml IV ONE (17:02)
--- NOTE | 2024-02-03 19:32 | CT Scan Report ---
CT SCAN OF THE ABDOMEN AND PELVIS COMBO CLINICAL HISTORY: Fall. Urinary tract infection. COMPARISON STUDY: Abdominal CT dated 09/16/2015. TECHNIQUE: Before and following the IV administration of 94 cc of Optiray 320, CT scan of the abdome n and pelvis is performed from the lung bases to the proximal femora. Images are reviewed in the axia l, sagittal, and coronal planes. IV contrast was administered without complication. A dose lowering t echnique was utilized adhering to the principles of ALARA. The examination is compromised by motion a rtifact. CT DOSE: 2416.24 mGy.cm FINDINGS: Lung bases: The heart is normal in size and without pericardial effusion. There is bibasilar scarring /atelectasis. No airspace consolidation or pleural effusion is identified. A small hiatal hernia is n oted. Liver: The contrast-enhanced liver is normal in size, contour, and attenuation. There is no intrahepa tic biliary ductal dilatation. The hepatic veins and portal veins are patent. Gallbladder: Surgically absent noting clips in the gallbladder fossa. Spleen: Normal in size and attenuation. 2 splenic evident is made of a 13 mm are statistically doubtf ul significance. There is trace subcapsular fluid. Peripherally calcified splenic artery aneurysms me asure up to 1.5 cm. Pancreas: Moderately atrophic and grossly unremarkable. Adrenal glands: Unremarkable. Kidneys: The contrast enhanced kidneys demonstrate mild cortical atrophy and are without hydronephros is. No renal calculi are identified and no ureteral stone is seen on the unenhanced series. The kidne ys enhance symmetrically. 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 Abdominal vasculature: The abdominal aorta is normal in course and caliber noting advanced atheroscle rotic calcification. Bowel: There is mild colonic diverticulosis without CT evidence of acute diverticulitis. No bowel obs truction is seen. The appendix is well-visualized and normal. Peritoneum: There is no intraperitoneal free air or abdominal ascites. Lymphadenopathy: A mildly enlarged right retroperitoneal node on image #176 measures up to 11 mm in s hort axis. This is similar in size dating back to 2015 and of low suspicion. A mildly enlarged right external iliac chain node on image #276 measuring 10 mm short axis is also unchanged. No suspicious l ymphadenopathy is seen in the abdomen or pelvis. Pelvic viscera: The bladder is decompressed and the wall appears mildly thickened with mucosal hypere edyta. The uterus is surgically absent. No adnexal lesion is seen. Skeletal structures: The skeletal structures are osteopenic. There is moderate to advanced lumbosacra l spondylosis. Sclerotic change is noted in the sacroiliac joints. No lytic or blastic lesions are se en. IMPRESSION: 1. The bladder wall appears mildly thickened with mucosal hyperemia. Correlate with clinical findings and urinalysis. 2. Trace subcapsular fluid is noted in the spleen. This is of indeterminate chronicity and significan ce. No splenic laceration is identified. 3. 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 4. Additional findings as above. ACT 112: Negative or not required by law. Electronically signed by: Johnson Ahumada M.D. 02/03/2024 7:30 PM
[2024-02-04 06:15] LABS: Basophils # (auto) 0.01 K/uL (0.00-0.20); Basophils % (auto) 0.2 %; Eosinophils # (auto) 0.14 K/uL (0.00-0.50); Eosinophils % (auto) 2.2 %; Hematocrit (blood only) 29.8 % (37.0-47.0); Hemoglobin 10.3 g/dl (12.0-16.0); Immature Granulocytes # (auto) 0.03 K/uL (0.01-0.20); Immature Granulocytes % (auto) 0.5 %; Lymphocytes # (auto) 1.82 K/uL (1.20-3.40); Lymphocytes % (auto) 28.2 %; Mean Corpuscular Hemoglobin 31.7 pg (25.0-34.0); Mean Corpuscular Hgb Conc 34.6 g/dL (32.0-36.0); Mean Corpuscular Volume 91.7 fL (80.0-100.0); Mean Platelet Volume 9.7 fL (9.4-12.4); Monocytes # (auto) 0.42 K/uL (0.11-0.59); Monocytes % (auto) 6.5 %; Neutrophils # (auto) 4.04 K/uL (1.40-6.50); Neutrophils % (auto) 62.4 %; Platelet Count 192 K/uL (130-400); RDW Coefficient of Variation 13.2 % (11.5-14.5); RDW Standard Deviation 44.5 fL (36.4-46.3); Red Blood Count 3.25 M/uL (4.20-5.40); White Blood Count 6.46 K/ul (4.8-10.8)
[2024-02-04 06:31] LABS: Albumin Globulin Ratio 1.2 (0.9-2); Albumin Level 3.4 gm/dl (3.4-5.0); BUN Creatinine Ratio 20.4 (10-20); Bilirubin,Total 0.6 mg/dl (0.2-1.0); Creatinine Clr Calc Pharmacy 39.2 ml/min; Est GFR (African American) 60.5 ml/min; Est GFR (Non-African American) 52.2 ml/min; Globulin 2.9 gm/dl (2.5-4.0); Magnesium 1.7 mg/dl (1.7-2.4); Total Protein 6.3 gm/dl (6.0-8.3)
--- NOTE | 2024-02-04 07:49 | Hospitalist Progress Note ---
Date of Service February 04, 2024 Assessment & Plan (1) Fall: Plan: 88yo F sustained a mechanical fall while walking into her kitchen and had been down for a period of time/unable to get up due to pain or contact her daughter and was able to get ahold of neighbors to come assist/call 911 --She denied symptoms such as lightheadedness/dizziness, chest pain, shortness of breath prior to the fall and that she landed on her buttocks. No LOC/head trauma. Did complete course Cipro PO for ecoli UTI last week, EKG NSR on admission w/ normal QTC however ?related meds w/ fall Painful to palpation b/l hips and knees Admit med/tele Ct head negative for acute process X ray L knee noted large joint effusion w/o evidence for fracture Ortho consulted, no need for additional imaging. Signed off B/l Hip/pelvis without acute fracture. CT lumbar spine negative for acute fracture or subluxation, does note moderate central canal narrowing at L3-L4 and L4-L5 due to broad-based posterior disc bulges however incidentally notable for single mildly enlarged R retroperitoneal lymph note and doubtful clinical significance given long term acute care registered nurse stability. Ceftriaxone IV continued, urine cx pin-point growth/re-incubating WBC wnl on repeat, afebrile Blood cultures NGTD, monitor CK 529, Cr 1.48 on admission. Suspect 2nd to being down/fall as well as dehydration -s/p 2.5NSS, statin on HOLD. Additional 500cc w/ CTAP yesterday for eval stones given hx/back pain however didn't note any stones (did note bladder wall thickening) - follow final urine cx. Prior urine cx pansensitive ecoli CK improved to 245, Cr 1.48--> 0.98 and good PO intake. -Will continue to hold statin/no need for additional IVF at this time given improvement in PO intake (however do suspect difficulty w/ this at times at home as "hard to cook for just one" reported previously) Mag 1.1, 3gm IV replacement ordered and 1.7 on repeat but will continue to monitor. She does report feeling poorly at home several weeks, has had chronic lows on checks in the past and suspect needing replacement. If low in AM, will start replacement, would continue at discharge TSH wnl, checked given prior elevation in October - remains on Synthroid 50mcg daily A1c 8.6, worse than prior. -->On PO glimepiride 4mg BID, semaglutide 7mg PO daily at baseline. Suspect the semaglutide leading decreased transit/dehydration and likely not best medication for her. Prior jardiance discontinued due to frequent UTIs. DM educator c onsulted and SSI while inpatient ordered and tightened parameters with improvement in PO intake * Suspect once daily insulin would be beneficial with meal time coverage to prevent going low but question if patient able to handle this given advanced age/etc. Will need f/u DM educator but also rec close f/u PCP/possible referral to endocrinology if needed Pain control w/ tylenol and lidocaine patch ordered, adding topical voltaren PT/OT consults pending (not yet in system) however patient wanting HHPT. CM following/saw patient 02/02 and notified of patient wants this afternoon Fall/aspiration precautions DVT proph: SCDs for now (2) Urinary tract infection: Plan: Recent Cipro course for pansensitive ecoli on 01/21 UA equivocal on admission however reporting ongoing dysuria/frequency (?hypomag as well) Ceftriaxone IV continued, urine cx added as not reflexed from ER order but did get dose Ceftriaxone prior Urine cx pin-point growth and continue to monitor BLood cultures remain NGTD but will monitor Olmesartan placed on hold but renal function back to baseline and will resume for today (or lisinopril/hospital equivalent) Monitor renal function w/ resumption (3) Elevated CK: Plan: CK 529 -suspet 2nd to being down on the ground with her fall/unable to get up w/ dehydration as well IVF as above, improvement in PO intake and no further IVF for today/encouraged PO Statin remains on hold for now, was able to place on hold prior to receiving 02/02 CK 200s today and will monitor in AM but pain also improving. TSH checked and wnl. Lyme negative. Renal function back to baseline (4) Diabetes mellitus with microalbuminuria: Plan: Hold semaglutide, glimepiride --?best meds for this patient. Was unable to continue jardiance 2nd to recurrent UTIs. W/ poor PO intake at baseline is at risk for hypoglycemia BSG AC/HS, SSI while inpatient and tightened SSI 02/02 w/ improvement however AM glu 182 on chemistries and suspect once daily insulin benefit. Also suspect SSI w/ meal coverage would be best but unsure if patient able to do this. DM consult placed/pending, A1c further elevated to 8.6 on check and prior unable to tolerate metformin due to diarrhea and suspect semaglutide contributing to dehydration/poor PO intake and glimepiride risk for hypoglycemia w/ poor po intake at home Pharmacy consulted for assistance, appreciated Monitor, ?outpt ref endo (5) HTN (hypertension): Plan: BP improved, olmesartan/hospital formulary to RESUME for 02/03 given resolution of renal function back to baseline, BP 151/75 Monitor for any need for reduction in such (6) Hypomagnesemia: Plan: Mag 1.1 on check, 3gm IV ordered and 1.7 on repeat labs/stable no arrhtyhmia on montior but does have PVCs, continue to monitor for any issue ?2nd to PPI use as on omeprazole 40mg BID, protonix while inpatient Monitor level in AM but if low/low normal, likely would place on oral supplementation to keep stores replete Plan continued inpatient stay, wanting HHPT. Therapy evals pending but CM notified Urine cx pin-point growth and reincubating and will monitor to see if able to dc in AM Admission and Anticipated Discharge Date Admission Date: February 02, 2024 Supervising Physician Co-Signing Physician Notes The patient was not seen by me. The chart was reviewed. Case discussed with HUMBLE Roth. Agree with assessment and plan Subjective Evaluated this afternoon,sitting up in recliner eating lunch. Reporting feeling better, still has some hip/leg discomfort but improving. No further hematuria, CTAP reviewed. Discussed mag improved but will monitor in AM to see if needing oral replacement but suspect she would benefit given prior levels always low. Urine cx pin-point growth, re-incubating. Blood cultures NGTD. Good PO intake, refilled her water. Discussed continuing to hold statin. Inquired about possible dc today but urine cx still pending and needing to tweek a couple things, monitor her DM as well. Seen by therapy and her wishes are home w/ HHPT, CM notified but therapy evals not yet written. Questions/concerns addressed at this time. Physical Exam Physical Exam: General: 88yo female sitting up in chair, NAD, talkative/pleasant HEENT: head atraumatic, normocephalic, mm slightly dry, trachea midline Resp; even/unlabored, on room air CV: RRR, no significant mrg (?faint systolic), trace dependent edema, calves supple/nontender and pulses present but does have some posterior knee swelling/tenderness/effusion GI: +BS, slightly distension but soft/nontender : no CVA tenderness (however did report some pain days prior) MSK/Neuro: nonfocal, no slurred speech/facial droop, not confused Psych: AOx3, cooperative with exam Results & Data Results & Data Vital Signs (Past 12 Hours) Vital Signs Temp Pulse Pulse Resp BP Pulse Ox O2 Del Method 02/04/24 07:39 36.8 C 70 16 151/75 H 94 Room Air 02/04/24 07:04 75 02/04/24 03:34 36.7 C 74 16 136/67 96 Room Air 02/03/24 23:53 37.1 C 75 18 133/67 96 Room Air 02/03/24 22:09 68 02/03/24 19:47 36.8 C 71 16 120/61 97 Room Air Laboratory Results 02/04/24 02/04/24 02/04/24 Range/Units 11:56 07:51 05:17 WBC 6.46 (4.8-10.8) K/ul RBC 3.25 L (4.20-5.40) M/uL Hgb 10.3 L (12.0-16.0) g/dl Hct 29.8 L (37.0-47.0) % MCV 91.7 (80.0-100.0) fL MCH 31.7 (25.0-34.0) pg MCHC 34.6 (32.0-36.0) g/dL RDW Std Deviation 44.5 (36.4-46.3) fL RDW Coeff of Barry 13.2 (11.5-14.5) % Plt Count 192 (130-400) K/uL MPV 9.7 (9.4-12.4) fL Immature Gran % (Auto) 0.5 % Neut % (Auto) 62.4 % Lymph % (Auto) 28.2 % Perkins % (Auto) 6.5 % Eos % (Auto) 2.2 % Baso % (Auto) 0.2 % Neut # (Auto) 4.04 (1.40-6.50) K/uL Lymph # (Auto) 1.82 (1.20-3.40) K/uL Perkins # (Auto) 0.42 (0.11-0.59) K/uL Eos # (Auto) 0.14 (0.00-0.50) K/uL Baso # (Auto) 0.01 (0.00-0.20) K/uL Immature Gran # (Auto) 0.03 (0.01-0.20) K/uL Sodium 134 L (136-145) mmol/L Potassium 4.0 (3.5-5.1) mmol/L Chloride 105 (98-107) mmol/L Carbon Dioxide 21 (21-32) mmol/L Anion Gap 8 (3-11) BUN 20 (6-23) mg/dl Creatinine 0.98 (0.6-1.2) mg/dl Est Cr Clr Drug Dosing 39.2 ml/min Est GFR ( Amer) 60.5 ml/min Est GFR (Non-Af Amer) 52.2 ml/min BUN/Creatinine Ratio 20.4 H (10-20) Glucose 182 H (70-99(Fasting)) mg/dl POC Glucose 222 H 185 H (70-99) mg/dl Estimat Average Glucose 200 mg/dl Hemoglobin A1c 8.6 H (4.5-5.6) % Calcium 8.0 L (8.6-10.3) mg/dl Magnesium 1.7 (1.7-2.4) mg/dl Total Bilirubin 0.6 (0.2-1.0) mg/dl AST 19 (13-39) U/L ALT 15 (7-52) U/L Alkaline Phosphatase 47 (34-104) U/L Total Creatine Kinase 245 H (26-192) U/L Total Protein 6.3 (6.0-8.3) gm/dl Albumin 3.4 (3.4-5.0) gm/dl Globulin 2.9 (2.5-4.0) gm/dl Albumin/Globulin Ratio 1.2 (0.9-2) 02/04/24 02/03/24 02/03/24 Range/Units 00:28 20:13 17:25 WBC (4.8-10.8) K/ul RBC (4.20-5.40) M/uL Hgb (12.0-16.0) g/dl Hct (37.0-47.0) % MCV (80.0-100.0) fL MCH (25.0-34.0) pg MCHC (32.0-36.0) g/dL RDW Std Deviation (36.4-46.3) fL RDW Coeff of Barry (11.5-14.5) % Plt Count (130-400) K/uL MPV (9.4-12.4) fL Immature Gran % (Auto) % Neut % (Auto) % Lymph % (Auto) % Perkins % (Auto) % Eos % (Auto) % Baso % (Auto) % Neut # (Auto) (1.40-6.50) K/uL Lymph # (Auto) (1.20-3.40) K/uL Perkins # (Auto) (0.11-0.59) K/uL Eos # (Auto) (0.00-0.50) K/uL Baso # (Auto) (0.00-0.20) K/uL Immature Gran # (Auto) (0.01-0.20) K/uL Sodium (136-145) mmol/L Potassium (3.5-5.1) mmol/L Chloride (98-107) mmol/L Carbon Dioxide (21-32) mmol/L Anion Gap (3-11) BUN (6-23) mg/dl Creatinine (0.6-1.2) mg/dl Est Cr Clr Drug Dosing ml/min Est GFR ( Amer) ml/min Est GFR (Non-Af Amer) ml/min BUN/Creatinine Ratio (10-20) Glucose (70-99(Fasting)) mg/dl POC Glucose 181 H 118 H 237 H (70-99) mg/dl Estimat Average Glucose mg/dl Hemoglobin A1c (4.5-5.6) % Calcium (8.6-10.3) mg/dl Magnesium (1.7-2.4) mg/dl Total Bilirubin (0.2-1.0) mg/dl AST (13-39) U/L ALT (7-52) U/L Alkaline Phosphatase (34-104) U/L Total Creatine Kinase (26-192) U/L Total Protein (6.0-8.3) gm/dl Albumin (3.4-5.0) gm/dl Globulin (2.5-4.0) gm/dl Albumin/Globulin Ratio (0.9-2) Diagnostic Findings Abdomen/Pelvis CT 02/03/24 12:23 CT SCAN OF THE ABDOMEN AND PELVIS COMBO CLINICAL HISTORY: Fall. Urinary tract infection. COMPARISON STUDY: Abdominal CT dated 09/16/2015. TECHNIQUE: Before and following the IV administration of 94 cc of Optiray 320, CT scan of the abdomen and pelvis is performed from the lung bases to the proximal femora. Images are reviewed in the axial, sagittal, and coronal planes. IV contrast was administered without complication. A dose lowering technique was utilized adhering to the principles of ALARA. The examination is compromised by motion artifact. CT DOSE: 2416.24 mGy.cm FINDINGS: Lung bases: The heart is normal in size and without pericardial effusion. There is bibasilar scarring/atelectasis. No airspace consolidation or pleural effusion is identified. A small hiatal hernia is noted. Liver: The contrast-enhanced liver is normal in size, contour, and attenuation. There is no intrahepatic biliary ductal dilatation. The hepatic veins and portal veins are patent. Gallbladder: Surgically absent noting clips in the gallbladder fossa. Spleen: Normal in size and attenuation. 2 splenic evident is made of a 13 mm are statistically doubtful significance. There is trace subcapsular fluid. Peripherally calcified splenic artery aneurysms measure up to 1.5 cm. Pancreas: Moderately atrophic and grossly unremarkable. Adrenal glands: Unremarkable. Kidneys: The contrast enhanced kidneys demonstrate mild cortical atrophy and are without hydronephrosis. No renal calculi are identified and no ureteral stone is seen on the unenhanced series. The kidneys enhance symmetrically. 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 Abdominal vasculature: The abdominal aorta is normal in course and caliber noting advanced atherosclerotic calcification. Bowel: There is mild colonic diverticulosis without CT evidence of acute diverticulitis. No bowel obstruction is seen. The appendix is well-visualized and normal. Peritoneum: There is no intraperitoneal free air or abdominal ascites. Lymphadenopathy: A mildly enlarged right retroperitoneal node on image #176 measures up to 11 mm in short axis. This is similar in size dating back to 2015 and of low suspicion. A mildly enlarged right external iliac chain node on image #276 measuring 10 mm short axis is also unchanged. No suspicious lymphadenopathy is seen in the abdomen or pelvis. Pelvic viscera: The bladder is decompressed and the wall appears mildly thickened with mucosal hyperemia. The uterus is surgically absent. No adnexal lesion is seen. Skeletal structures: The skeletal structures are osteopenic. There is moderate to advanced lumbosacral spondylosis. Sclerotic change is noted in the sacroiliac joints. No lytic or blastic lesions are seen. IMPRESSION: 1. The bladder wall appears mildly thickened with mucosal hyperemia. Correlate with clinical findings and urinalysis. 2. Trace subcapsular fluid is noted in the spleen. This is of indeterminate chronicity and significance. No splenic laceration is identified. 3. 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 4. Additional findings as above. ACT 112: Negative or not required by law. Electronically signed by: Johnson Ahumada M.D. 02/03/2024 7:30 PM PG Care Time/CCT Total # of Minutes Spent Total Time Spent with Patient: Total time spent is greater than 50% in coordination of care (as documented) at patient's floor/unit and/or counseling patient: Coding Level of Care Code 59509 SUB INP/OBS CARE 3/50MIN Diagnoses Fall W19.XXXA Encounter type: initial encounter Urinary tract infection N39.0 Elevated CK R74.8 Diabetes mellitus with microalbuminuria E11.29; R80.9 HTN (hypertension) I10 Hypomagnesemia E83.42 (1) Fall Encounter type: initial encounter Qualified Code(s): W19.XXXA - Unspecified fall, initial encounter
[2024-02-04 07:51] LABS: Estimated Average Glucose 200 mg/dl; Hemoglobin A1C 8.6 % (4.5-5.6)
[2024-02-04] MEDS ORDERED: PHARMACY GLYCEMIC MGMT CONSULT PRN (13:10)
[2024-02-04] MEDS: DICLOFENAC SOD 1% GEL 100 GM TUBE EXT SCH (13:31)
[2024-02-04] MEDS: LOSARTAN POTASSIUM 25 MG TAB PO SCH (13:47)
--- NOTE | 2024-02-04 13:49 | Pharmacy Report ---
Pharmacy Glycemic Short Note 2 - Date of Service February 04, 2024 - Glycemic Short BSG Results (Last 24 hours): 02/03/24 02/03/24 02/04/24 17:25 20:13 00:28 Glucose POC Glucose 237 H 118 H 181 H 02/04/24 02/04/24 02/04/24 05:17 07:51 11:56 Glucose 182 H POC Glucose 185 H 222 H OUTPATIENT ANTIDIABETIC REGIMEN: * glimepiride 4 mg bid, semaglutide 7 mg qam ASSESSMENT: * 88 year old admitted s/p fall, admitted with weakness/dehydration. Type 2 diabetic managed on orals at home. Patient received total of 16 units of insulin yesterday. Fasting BSG remains >180 this morning. Plan to add low dose basal insulin today. No change to CF/CR PLAN FOR INPATIENT GLYCEMIC CONTROL: * Hold outpatient oral diabetes medications * Basal insulin * Lantus 10 units daily * Bolus insulin * NovoLog per scale ACHS or Q6hrs while NPO * Goal Range: Low 110 mg/dL - High 160 mg/dL * Correction Factor: 35 mg/dL/unit * Nutritional / Prandial insulin per carb ratio of 1 unit per 12 grams CHO consumed
[2024-02-04] MEDS: LANTUS PER UNIT CHARGE SC SCH (17:23)
[2024-02-05 07:15] LABS: Basophils # (auto) 0.01 K/uL (0.00-0.20); Basophils % (auto) 0.2 %; Eosinophils # (auto) 0.11 K/uL (0.00-0.50); Eosinophils % (auto) 1.9 %; Hematocrit (blood only) 33.2 % (37.0-47.0); Hemoglobin 11.5 g/dl (12.0-16.0); Immature Granulocytes # (auto) 0.02 K/uL (0.01-0.20); Immature Granulocytes % (auto) 0.3 %; Lymphocytes # (auto) 1.77 K/uL (1.20-3.40); Lymphocytes % (auto) 30.4 %; Mean Corpuscular Hemoglobin 31.8 pg (25.0-34.0); Mean Corpuscular Hgb Conc 34.6 g/dL (32.0-36.0); Mean Corpuscular Volume 91.7 fL (80.0-100.0); Mean Platelet Volume 9.2 fL (9.4-12.4); Monocytes # (auto) 0.48 K/uL (0.11-0.59); Monocytes % (auto) 8.2 %; Neutrophils # (auto) 3.43 K/uL (1.40-6.50); Platelet Count 229 K/uL (130-400); RDW Standard Deviation 44.1 fL (36.4-46.3); Red Blood Count 3.62 M/uL (4.20-5.40); White Blood Count 5.82 K/ul (4.8-10.8)
[2024-02-05 07:27] LABS: Albumin Globulin Ratio 1.1 (0.9-2); Albumin Level 3.5 gm/dl (3.4-5.0); BUN Creatinine Ratio 20.6 (10-20); Bilirubin,Total 0.6 mg/dl (0.2-1.0); Calcium 8.9 mg/dl (8.6-10.3); Creatinine Clr Calc Pharmacy 39.1 ml/min; Est GFR (African American) 61.3 ml/min; Est GFR (Non-African American) 52.9 ml/min; Globulin 3.3 gm/dl (2.5-4.0); Magnesium 1.4 mg/dl (1.7-2.4); Potassium 4.4 mmol/L (3.5-5.1); Total Protein 6.8 gm/dl (6.0-8.3)
--- NOTE | 2024-02-05 07:39 | Hospitalist Progress Note ---
Date of Service February 05, 2024 Assessment & Plan (1) Fall: Plan: 88yo F sustained a mechanical fall while walking into her kitchen and had been down for a period of time/unable to get up due to pain or contact her daughter and was able to get ahold of neighbors to come assist/call 911 --She denied symptoms such as lightheadedness/dizziness, chest pain, shortness of breath prior to the fall and that she landed on her buttocks. No LOC/head trauma. Did complete course Cipro PO for ecoli UTI last week, EKG NSR on admission w/ normal QTC however ?related meds w/ fall Painful to palpation b/l hips and knees Admit med/tele Ct head negative for acute process X ray L knee noted large joint effusion w/o evidence for fracture Ortho consulted, no need for additional imaging. Signed off B/l Hip/pelvis without acute fracture. CT lumbar spine negative for acute fracture or subluxation, does note moderate central canal narrowing at L3-L4 and L4-L5 due to broad-based posterior disc bulges however incidentally notable for single mildly enlarged R retroperitoneal lymph note and doubtful clinical significance given long term care social worker stability. CTAP w/ splenic fluid but prior disc w/ supervising provider and likely chronic and nothing to do/outpatient PCP f/u WBC wnl on repeat, afebrile. Ceftriaxone for UTI concerns, urine cx -pin-point growth, re-incubating - monitor. 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 IVF provided/statin held but can resume in AM Renal function back to baseline, ARB resumed and renal function stable on AM labs Mag 1.1, IV replacement and 1.7 but again LOW 1.4 and IV replacement ordered for today and placing on oral supplementation TSH wnl. Tele stable, occ PACs. A1c 8.6, worse than prior. -->On PO glimepiride 4mg BID, semaglutide 7mg PO daily at baseline. Suspect the semaglutide leading decreased transit/dehydration and likely not best medication for her. Prior jardiance discontinued due to frequent UTIs. DM educator consulted and SSI while inpatient ordered and tightened parameters with improvement in PO intake * Suspect once daily insulin would be beneficial with meal time coverage to prevent going low but question if patient able to handle this given advanced age/etc. * Started once daily long acting for today 10u and will monitor. Continue SSI Will need f/u DM educator but also rec close f/u PCP/possible referral to endocrinology if needed Pain control w/ Tylenol and lidocaine patch ordered, voltaren gel. Therapy evals * OT rec HHPT, however PT rec inpatient rehab. Patient wanting HHPT and will have them re-eval and if improvement w/ improvement in labs as above and abx for UTI can arrange for HHPT. CM to follow Fall precautions DVT proph: SCDs, adding Lovenox SQ, 30 based on renal function. Monitor for need for adj PT/OT consults pending (not yet in system) however patient wanting HHPT. CM following/saw patient 02/02 and notified of patient wants this afternoon Monitor labs/evals in am but if improvement in therapy evals can dc 02/05 with HHPT (2) Urinary tract infection: Plan: Recent Cipro course for pansensitive ecoli on 01/21 UA equivocal on admission however reporting ongoing dysuria/frequency (?hypomag as well) Ceftriaxone IV continued, urine cx added as not reflexed from ER order but did get dose Ceftriaxone prior Urine cx pin-point growth and continue to monitor, if negative can consider short course cephalosporin but would avoid FLQ and does not appear to have any ascending infection on CTAP BLood cultures remain NGTD but will monitor Olmesartan placed on hold but renal function back to baseline and resumed 02/03 (noting did get full dose and not half dose, RN did event report. BP and labs stable and no adverse effects) BMP in AM (3) Elevated CK: Plan: CK 529 -suspet 2nd to being down on the ground with her fall/unable to get up w/ dehydration as well IVF for dehydration provided/statin placed on hold TSH wnl, Lyme negative CK NORMALIZED today, can resume statin in AM but will hold off for now. (4) Diabetes mellitus with microalbuminuria: Plan: Hold semaglutide, glimepiride --?best meds for this patient. Was unable to continue jardiance 2nd to recurrent UTIs. W/ poor PO intake at baseline is at risk for hypoglycemia BSG AC/HS, SSI while inpatient and tightened SSI 02/02 w/ improvement however AM glu 182 on chemistries and suspect once daily insulin benefit. Also suspect SSI w/ meal coverage would be best but unsure if patient able to do this. DM consult placed/pending, A1c further elevated to 8.6 on check and prior unable to tolerate metformin due to diarrhea and suspect semaglutide contributing to dehydration/poor PO intake and glimepiride risk for hypoglycemia w/ poor po intake at home Pharmacy consulted for assistance, appreciated -- started 10u glargine for today, continue SSI at current parameters. DM educator consult pending, will need close f/u PCP (?ref to endo) (5) HTN (hypertension): Plan: BP improved/stable Home olmesartan/hospital formulary resumed as above BP stable and will continue to monitor such (6) Hypomagnesemia: Plan: Mag 1.1 on check, 3gm IV ordered and 1.7 on repeat labs/stable. No arrhythmia on montior but does have PVCs, continue to monitor for any issue 1.4 as above, IV replacement ordered and STARTED PO LIKELY NEED CONTINUED PO SUPP AT DC given always low in system to prevent issues. ?mag wasting w/ her PPI which she takes BID at baseline Plan continued inpatient stay, wanting HHPT however PT rec for rehab. Will have re- eval F/u urine cx to switch to PO to complete course in AM, hopeful fc w/ HHPT 02/05 if improvements with therapy evals and electrolytes stable Admission and Anticipated Discharge Date Admission Date: February 02, 2024 Supervising Physician Co-Signing Physician Notes The patient was not seen by me. The chart was reviewed. Case discussed with HUMBLE Roth. Agree with assessment and plan Subjective Evaluated this morning, initially wanting to go home because of her kittens, but discussed urine cx still pending and mag again low and starting supplementation and wanting to ensure cultures back and mag stable prior to dc but other labs improved and CK normal/renal function stable and back on medications. Discussed therapy recs, she is wanting HHPT but PT eval rec inpatient. She DOES NOT want inpatient and discussed continuing to monitor repeat evals but if mag improved/stable and improvement w/ therapy evals will plan for dc in AM w/ HHPT. She needs help calling daughter, RN notified to come to assist with contacting her to let her know staying overnight. No CP/SOB, abdominal pain, nausea/vomiting or other issues at this time. Questions/concerns addressed at this time. Physical Exam Physical Exam: General: 88yo female laying in bed, NAD HEENT: head atraumatic, normocephalic, mm improved, trachea midline Resp; even/unlabored, on room air CV: RRR, no significant mrg (?faint systolic), trace dependent edema, calves supple/nontender and pulses present but does have some posterior knee swelling/tenderness/effusion (improved slightly) GI: +BS, soft/NT, slight distension : no CVA tenderness (however did report some pain prior to admission) MSK/Neuro: nonfocal, no slurred speech/facial droop, not confused Psych: AOx3, cooperative with exam Results & Data Results & Data Vital Signs (Past 12 Hours) Vital Signs Temp Pulse Pulse Resp BP BP Pulse Ox 02/05/24 07:33 36.6 C 71 16 153/78 H 95 02/05/24 07:03 78 02/05/24 03:30 36.9 C 80 18 180/66 H 95 02/04/24 23:22 36.7 C 72 16 148/67 H 96 02/04/24 21:59 74 02/04/24 19:50 36.9 C 70 18 138/69 96 O2 Del Method 02/05/24 07:33 Room Air 02/05/24 07:03 02/05/24 03:30 Room Air 02/04/24 23:22 Room Air 02/04/24 21:59 02/04/24 19:50 Room Air Laboratory Results 02/05/24 02/05/24 02/04/24 Range/Units 08:06 06:51 20:03 WBC 5.82 (4.8-10.8) K/ul RBC 3.62 L (4.20-5.40) M/uL Hgb 11.5 L (12.0-16.0) g/dl Hct 33.2 L (37.0-47.0) % MCV 91.7 (80.0-100.0) fL MCH 31.8 (25.0-34.0) pg MCHC 34.6 (32.0-36.0) g/dL RDW Std Deviation 44.1 (36.4-46.3) fL RDW Coeff of Barry 13.0 (11.5-14.5) % Plt Count 229 (130-400) K/uL MPV 9.2 L (9.4-12.4) fL Immature Gran % (Auto) 0.3 % Neut % (Auto) 59.0 % Lymph % (Auto) 30.4 % Barren % (Auto) 8.2 % Eos % (Auto) 1.9 % Baso % (Auto) 0.2 % Neut # (Auto) 3.43 (1.40-6.50) K/uL Lymph # (Auto) 1.77 (1.20-3.40) K/uL Barren # (Auto) 0.48 (0.11-0.59) K/uL Eos # (Auto) 0.11 (0.00-0.50) K/uL Baso # (Auto) 0.01 (0.00-0.20) K/uL Immature Gran # (Auto) 0.02 (0.01-0.20) K/uL Sodium 136 (136-145) mmol/L Potassium 4.4 (3.5-5.1) mmol/L Chloride 102 (98-107) mmol/L Carbon Dioxide 28 (21-32) mmol/L Anion Gap 6 (3-11) BUN 20 (6-23) mg/dl Creatinine 0.97 (0.6-1.2) mg/dl Est Cr Clr Drug Dosing 39.1 ml/min Est GFR ( Amer) 61.3 ml/min Est GFR (Non-Af Amer) 52.9 ml/min BUN/Creatinine Ratio 20.6 H (10-20) Glucose 183 H (70-99(Fasting)) mg/dl POC Glucose 169 H 183 H (70-99) mg/dl Calcium 8.9 (8.6-10.3) mg/dl Magnesium 1.4 L (1.7-2.4) mg/dl Total Bilirubin 0.6 (0.2-1.0) mg/dl AST 18 (13-39) U/L ALT 15 (7-52) U/L Alkaline Phosphatase 47 (34-104) U/L Total Creatine Kinase 170 (26-192) U/L Total Protein 6.8 (6.0-8.3) gm/dl Albumin 3.5 (3.4-5.0) gm/dl Globulin 3.3 (2.5-4.0) gm/dl Albumin/Globulin Ratio 1.1 (0.9-2) 02/04/24 02/04/24 Range/Units 16:29 11:56 WBC (4.8-10.8) K/ul RBC (4.20-5.40) M/uL Hgb (12.0-16.0) g/dl Hct (37.0-47.0) % MCV (80.0-100.0) fL MCH (25.0-34.0) pg MCHC (32.0-36.0) g/dL RDW Std Deviation (36.4-46.3) fL RDW Coeff of Barry (11.5-14.5) % Plt Count (130-400) K/uL MPV (9.4-12.4) fL Immature Gran % (Auto) % Neut % (Auto) % Lymph % (Auto) % Barren % (Auto) % Eos % (Auto) % Baso % (Auto) % Neut # (Auto) (1.40-6.50) K/uL Lymph # (Auto) (1.20-3.40) K/uL Barren # (Auto) (0.11-0.59) K/uL Eos # (Auto) (0.00-0.50) K/uL Baso # (Auto) (0.00-0.20) K/uL Immature Gran # (Auto) (0.01-0.20) K/uL Sodium (136-145) mmol/L Potassium (3.5-5.1) mmol/L Chloride (98-107) mmol/L Carbon Dioxide (21-32) mmol/L Anion Gap (3-11) BUN (6-23) mg/dl Creatinine (0.6-1.2) mg/dl Est Cr Clr Drug Dosing ml/min Est GFR ( Amer) ml/min Est GFR (Non-Af Amer) ml/min BUN/Creatinine Ratio (10-20) Glucose (70-99(Fasting)) mg/dl POC Glucose 140 H 222 H (70-99) mg/dl Calcium (8.6-10.3) mg/dl Magnesium (1.7-2.4) mg/dl Total Bilirubin (0.2-1.0) mg/dl AST (13-39) U/L ALT (7-52) U/L Alkaline Phosphatase (34-104) U/L Total Creatine Kinase (26-192) U/L Total Protein (6.0-8.3) gm/dl Albumin (3.4-5.0) gm/dl Globulin (2.5-4.0) gm/dl Albumin/Globulin Ratio (0.9-2) PG Care Time/CCT Total # of Minutes Spent Total Time Spent with Patient: Total time spent is greater than 50% in coordination of care (as documented) at patient's floor/unit and/or counseling patient: Coding Level of Care Code 32416 SUB INP/OBS CARE 3/50MIN Diagnoses Fall W19.XXXA Encounter type: initial encounter Urinary tract infection N39.0 Elevated CK R74.8 Diabetes mellitus with microalbuminuria E11.29; R80.9 HTN (hypertension) I10 Hypomagnesemia E83.42 (1) Fall Encounter type: initial encounter Qualified Code(s): W19.XXXA - Unspecified fall, initial encounter
[2024-02-05] MEDS: MAGNESIUM SULFATE / D5W 1 GM/100 ML BAG IV SCH (07:51)
[2024-02-05] MEDS: LANTUS PER UNIT CHARGE SC SCH (09:00)
[2024-02-05] MEDS: MAGNESIUM CHLORIDE W/CALCIUM 64MG DELAYED REL TAB PO SCH (09:00)
--- NOTE | 2024-02-05 11:08 | Pharmacy Report ---
Pharmacy Glycemic Short Note 2 - Date of Service February 05, 2024 - Glycemic Short BSG Results (Last 24 hours): 02/04/24 02/04/24 02/04/24 11:56 16:29 20:03 Glucose POC Glucose 222 H 140 H 183 H 02/05/24 02/05/24 06:51 08:06 Glucose 183 H POC Glucose 169 H OUTPATIENT ANTIDIABETIC REGIMEN: * glimepiride 4 mg bid, semaglutide 7 mg qam ASSESSMENT: 02/04 * Debra received 26 units of insulin yesterday (10 basal) * Fasting BSG still elevated this AM, will continue current dosing at this time and monitor for trends * Continue Novolog parameters at this time, she continues on ceftriaxone, mon itor for trends, may need tighter carbohydrate coverage. 02/03 * 88 year old admitted s/p fall, admitted with weakness/dehydration. Type 2 diabetic managed on orals at home. Patient received total of 16 units of insulin yesterday. Fasting BSG remains >180 this morning. Plan to add low dose basal insulin today. No change to CF/CR PLAN FOR INPATIENT GLYCEMIC CONTROL: * Hold outpatient oral diabetes medications * Basal insulin * Lantus 10 units daily * Bolus insulin * NovoLog per scale ACHS or Q6hrs while NPO * Goal Range: Low 110 mg/dL - High 160 mg/dL * Correction Factor: 35 mg/dL/unit * Nutritional / Prandial insulin per carb ratio of 1 unit per 12 grams CHO consumed
[2024-02-05] MEDS: ENOXAPARIN INJ 30 MG/0.3 ML SYR SQ SCH (12:22)
[2024-02-05] MEDS ORDERED: MICONAZOLE NITRATE POWDER 85 GM EXT PRN (19:48)
[2024-02-06 06:28] LABS: BUN Creatinine Ratio 17.2 (10-20); Calcium 9.3 mg/dl (8.6-10.3); Creatinine Clr Calc Pharmacy 40.8 ml/min; Est GFR (African American) 64.5 ml/min; Est GFR (Non-African American) 55.6 ml/min; Magnesium 1.7 mg/dl (1.7-2.4); Potassium 4.2 mmol/L (3.5-5.1)
--- NOTE | 2024-02-06 08:16 | Hospitalist Progress Note ---
Date of Service February 06, 2024 Assessment & Plan (1) Fall: Plan: Presented after a mechanical fall at home while walking into her kitchen and had been down for a period of time/unable to get up due to pain. No LOC/head trauma. - Did complete course Cipro PO for ecoli UTI week prior, EKG NSR on admission w/ normal QTC however ?related meds w/ fall - Painful to palpation b/l hips and knees - Ct head negative for acute process - X ray L knee noted large joint effusion w/o evidence for fracture > Ortho consulted, no need for additional imaging. Signed off - B/l Hip/pelvis without acute fracture. - CT lumbar spine negative for acute fracture or subluxation, does note moderate central canal narrowing at L3-L4 and L4-L5 due to broad-based posterior disc bulges however incidentally notable for single mildly enlarged R retroperitoneal lymph note and doubtful clinical significance given ocean transportation intermediary stability. - CTAP w/ splenic fluid but prior disc w/ supervising provider and likely chronic and nothing to do/outpatient PCP f/u - Pain control w/ Tylenol and lidocaine patch ordered, voltaren gel. Therapy evals --> recommending home health on discharge. - Waiting for patient to be accepted with home health agency. Hopeful for disch arge with 02/06. (2) Urinary tract infection: Plan: Recent Cipro course for pansensitive ecoli on 01/21 UA equivocal on admission however reporting ongoing dysuria/frequency (?hypomag as well) Ceftriaxone IV continued, urine cx added as not reflexed from ER order but did get dose Ceftriaxone prior Urine culturenegative --> can consider short course cephalosporin on discharge, but would avoid fluoroquinolones and does not appear to have any ascending infection on CTAP Blood cultures negative Olmesartan resumed 02/05 (3) Elevated CK: Plan: CK elevated at 529 on admission, suspect 2nd to being down on the ground with her fall/unable to get up w/ dehydration as well. - CK normalized on repeat 02/04. - Statin resumed AM 02/05 - TSH wnl, Lyme negative (4) Diabetes mellitus with microalbuminuria: Plan: A1c 8.6, worse than prior. -->On PO glimepiride 4mg BID, semaglutide 7mg PO daily at baseline. Patient is unable to tolerate metformin (GI side effects), Jardiance (UTIs), Januvia (contraindicated with GLP-1). > DM educator consulted and SSI while inpatient ordered and tightened parameters with improvement in PO intake > DM educator is recommending continuing home regimen of glimepiride 4 mg twice daily and Rybelsus 7 mg every morning on discharge. - Will need f/u DM educator but also recommend close f/u with PCP/possible referral to endocrinology if needed. (5) HTN (hypertension): Plan: BP improved/stable Home olmesartan/hospital formulary resumed as above Plan Discussed discharge planning with case management -- waiting to be accepted with home health agency Resumed statin 02/05 VTE PPx: Lovenox CODE STATUS: DNR/DNI Admission and Anticipated Discharge Date Admission Date: February 02, 2024 Subjective Patient seen and evaluated at bedside chair. She reports that she is feeling well today. We discussed that her magnesium has augmented appropriately and we will continue to oral supplementation on discharge. Patient is understanding and agreeable. Physical therapy reevaluated the patient today and is recommending patient is discharged home with home health. Discussed this with case management and the patient, waiting for patient to be accepted with home health service. No additional complaints or concerns at this time. Physical Exam Physical Exam: General: No acute distress, nondiaphoretic, well-developed, well-nourished. Skin: The skin was without rashes, erythema, edema, or bruising. Trace dependent edema, calves supple/nontender and pulses present but does have some posterior knee swelling/tenderness/effusion, improved. Cardiac: Regular rate and rhythm without murmurs gallops or rubs. Pulm: Clear to auscultation bilaterally without wheezes, rales or rhonchi. No respiratory distress. 96% on room air. Abdominal: Soft, nontender, nondistended. Bowel sounds present. Neuro: A&O x3. No focal neurological deficits. Results & Data Results & Data Vital Signs (Past 12 Hours) Vital Signs Temp Pulse Pulse Resp BP BP Pulse Ox 02/06/24 07:31 02/06/24 07:08 72 02/06/24 02:20 36.7 C 71 18 176/75 H 97 02/05/24 22:37 36.9 C 71 18 156/77 H 96 02/05/24 21:58 70 O2 Del Method 02/06/24 07:31 Room Air 02/06/24 07:08 02/06/24 02:20 Room Air 02/05/24 22:37 Room Air 02/05/24 21:58 Laboratory Results Reviewed BMP Reviewed blood culture Reviewed urine culture PG Care Time/CCT Total # of Minutes Spent Total Time Spent with Patient: Total time spent is greater than 50% in coordination of care (as documented) at patient's floor/unit and/or counseling patient: Coding Level of Care Code 73322 SUB INP/OBS CARE 2/35MIN Diagnoses Fall W19.XXXA Encounter type: initial encounter Urinary tract infection N39.0 Elevated CK R74.8 Diabetes mellitus with microalbuminuria E11.29; R80.9 HTN (hypertension) I10 (1) Fall Encounter type: initial encounter Qualified Code(s): W19.XXXA - Unspecified fall, initial encounter
[2024-02-06] MEDS: LANTUS PER UNIT CHARGE SC SCH (08:54)
[2024-02-06] MEDS ORDERED: OLMESARTAN 5 MG PO SCH (09:00)
[2024-02-07 07:42] LABS: Hematocrit (blood only) 34.2 % (37.0-47.0); Hemoglobin 11.6 g/dl (12.0-16.0); Mean Corpuscular Hemoglobin 31.6 pg (25.0-34.0); Mean Corpuscular Hgb Conc 33.9 g/dL (32.0-36.0); Mean Corpuscular Volume 93.2 fL (80.0-100.0); Mean Platelet Volume 9.1 fL (9.4-12.4); Platelet Count 264 K/uL (130-400); Red Blood Count 3.67 M/uL (4.20-5.40); White Blood Count 5.59 K/ul (4.8-10.8)
[2024-02-07 08:06] LABS: BUN Creatinine Ratio 22.8 (10-20); Calcium 9.5 mg/dl (8.6-10.3); Creatinine Clr Calc Pharmacy 36.7 ml/min; Est GFR (African American) 58.4 ml/min; Est GFR (Non-African American) 50.4 ml/min; Magnesium 1.4 mg/dl (1.7-2.4); Potassium 4.2 mmol/L (3.5-5.1)
[2024-02-07] MEDS: MAGNESIUM OXIDE 400 MG TAB PO ONE ×2 (09:49→13:54)
[2024-02-07] MEDS: MAGNESIUM SULFATE / D5W 1 GM/100 ML BAG IV SCH (09:50)
--- NOTE | 2024-02-07 12:11 | Pharmacy Report ---
Pharmacy Glycemic Short Note 2 - Date of Service February 07, 2024 - Glycemic Short BSG Results (Last 24 hours): 02/06/24 02/06/24 02/06/24 12:13 16:56 20:05 Glucose POC Glucose 234 H 132 H 211 H 02/07/24 02/07/24 07:07 08:05 Glucose 162 H POC Glucose 163 H OUTPATIENT ANTIDIABETIC REGIMEN: * glimepiride 4 mg bid, semaglutide 7 mg qam * HbA1c 8.6% (02/04/24) ASSESSMENT: 02/06 * Debra received 28 units of insulin (12 were basal) * Fasting BSG acceptable, basal insulin increased 20% yesterday, continue current regimen and monitor for trends * Carbohydrate ratio tightened significantly due to ups and downs in BSGs yesterday. She continues on ceftriaxone. 02/04: * Debra received 26 units of insulin yesterday (10 basal) * Fasting BSG still elevated this AM, will continue current dosing at this time and monitor for trends * Continue Novolog parameters at this time, she continues on ceftriaxone, monitor for trends, may need tighter carbohydrate coverage. 02/03 * 88 year old admitted s/p fall, admitted with weakness/dehydration. Type 2 diabetic managed on orals at home. Patient received total of 16 units of insulin yesterday. Fasting BSG remains >180 this morning. Plan to add low dose basal insulin today. No change to CF/CR PLAN FOR INPATIENT GLYCEMIC CONTROL: * Hold outpatient oral diabetes medications * Basal insulin * Lantus 12 units SQ daily * Bolus insulin * NovoLog per scale ACHS or Q6hrs while NPO * Goal Range: Low 110 mg/dL - High 160 mg/dL * Correction Factor: 30 mg/dL/unit * Nutritional / Prandial insulin per carb ratio of 1 unit per 7 grams CHO consumed
--- NOTE | 2024-02-07 15:36 | Discharge Summary ---
Discharge Summary Date of Service February 07, 2024 Principal Dx & Hospital Course #1 = Principal Diagnosis (1) Fall: Presented after a mechanical fall at home while walking into her kitchen and had been down for a period of time/unable to get up due to pain. No LOC/head trauma. - Did complete course Cipro PO for ecoli UTI week prior, EKG NSR on admission w/ normal QTC however ?related meds w/ fall - Painful to palpation b/l hips and knees - Ct head negative for acute process - X ray L knee noted large joint effusion w/o evidence for fracture > Ortho consulted, no need for additional imaging. Signed off - B/l Hip/pelvis without acute fracture. 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 - CTAP w/ splenic fluid but prior disc w/ supervising provider and likely chronic and nothing to do/outpatient PCP f/u - Continue oral mag with calcium supplementation 64 mg p.o. twice daily - Pain controlled with Tylenol, lidocaine patch, voltaren gel. Therapy evals --> recommended home health. - Discharged with home health on 02/06. (2) Urinary tract infection: Recent Cipro course for pansensitive ecoli on 01/21 UA equivocal on admission however reporting ongoing dysuria/frequency (?hypomag as well) Ceftriaxone IV continued, urine cx added as not reflexed from ER order but did get dose Ceftriaxone prior Urine culturenegative and does not appear to have any ascending infection on CTAP Blood cultures negative Last dose ceftriaxone given 02/06 Olmesartan resumed 02/05 (3) Elevated CK: CK elevated at 529 on admission, suspect 2nd to being down on the ground with her fall/unable to get up w/ dehydration as well. - CK normalized on repeat 02/04. 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 -->On PO glimepiride 4mg BID, semaglutide 7mg PO daily at baseline. Patient is unable to tolerate metformin (GI side effects), Jardiance (UTIs), Januvia (contraindicated with GLP-1). > DM educator consulted and SSI while inpatient ordered and tightened parameters with improvement in PO intake > DM educator recommended continuing home regimen of glimepiride 4 mg twice daily and Rybelsus 7 mg every morning on discharge. - Will need f/u DM educator but also recommend close f/u with PCP/possible referral to endocrinology if needed. (5) HTN (hypertension): BP improved/stable Home olmesartan/hospital formulary resumed as above Plan CODE STATUS: DNR/DNI Notes For Next Care Provider Discharged from hospital with home health services on 02/07/24. Recommend follow-up with PCP and DM educator. Medication Changes From Visit Started oral mag supplementation BID Admission HPI Per Admitting Provider Debra is an 88-year-old female with a past medical history significant for diabetes mellitus type 2, hypertension, hypothyroidism, and hyperlipidemia who presented to the [facility] ED on 02/02/2024 via EMS after sustaining a fall at home. She remained stable while in the ED. Labs were significant for a leukocytosis of 11 with neutrophil predominance of 9, creatinine of 1.48 (baseline is near 1.0), BUN of 39, bicarb of 19 with anion gap within normal limits, corrected sodium of 136, glucose of 266, total CK of 529, high-sensitivity troponin of 26, and equivocal UA. CT of the head and brain without contrast and chest x-ray were negative for acute findings. X-ray of the left knee was read as soft tissue swelling and large joint effusion with no radiographic evidence of acute fracture. Clinical concern for occult fracture a CT scan would be considered. Osteopenia with degenerative changes and chondrocalcinosis of the blood. Prior to admission the patient was given 1 L normal saline and a dose of ceftriaxone. Patient was lying in bed in no acute distress at time of exam with her daughter bedside, history was obtained from both. The patient states that she was walking from her bedroom to the kitchen to get something to drink as she had not had anything to eat since waking. She was using her cane when she felt as though it caught on the floor causing her to lose her balance and fall backwards, she fell and landed on her buttocks. She denies hitting her head or losing consciousness. Denies current head, neck, back pain. She has some hip pain but the majority of her pain is in the bilateral knees. Denies recent chest pain, shortness of breath, abdominal pain, nausea/vomiting, diarrhea. When asked, she is still experiencing dysuria despite recently completing a course of antibiotics for UTI. Denies recent hematuria. We discussed CODE STATUS she and her daughter confirm that she is a DNR/DNI and her daughter is her primary decision-maker if she cannot make decisions for self. She still feels as though she is having pain in the bilateral knees and will have trouble walking herself. Please refer to Dr. Galvez's attestation for any changes to the treatment plan Admission Exam Per Admitting Provider General: In no acute distress, stated age, well-nourished, non-toxic appearing HEENT: Normocephalic, atraumatic, no scleral icterus, pupils around round, symmetrical, and reactive to light, dry mucus membranes, trachea midline, no thyromegaly Chest/Pulm: No respiratory distress, symmetrical chest expansion, clear breath sounds throughout Cardiac: RRR, no murmurs noted Abdomen: Negative for ascites and bruising, normoactive bowel sounds, soft, non- tender to palpation throughout Musculoskeletal: Symmetrical and without signs of acute trauma, upper with full ROM >Patient with mild tenderness to palpation of the BL hips without step off or crepitus >No obvious swelling or trauma of the BL knees, patient experiences pain with flexion of the BL knees Extremities: Radial, dorsalis pedis, and posterior tibial pulses are intact and symmetrical, no edema noted in the BL LE's Skin: Warm, dry, no rashes , lesions, or scars noted Neuro: Alert and oriented to person, place, month, year, and president, no focal defects, no tremors noted Psych: No acute distress, calm and cooperative during the exam Discharge Exam General: No acute distress, nondiaphoretic, well-developed, well-nourished. Skin: The skin was without rashes, erythema, edema, or bruising. Trace dependent edema, calves supple/nontender and pulses present but does have some posterior knee swelling/tenderness/effusion, improved. Cardiac: Regular rate and rhythm without murmurs gallops or rubs. Pulm: Clear to auscultation bilaterally without wheezes, rales or rhonchi. No respiratory distress. 96% on room air. Abdominal: Soft, nontender, nondistended. Bowel sounds present. Neuro: A&O x3. No focal neurological deficits. Updated Medication List Medication Instructions Recorded Confirmed Type [id number] acid 0.4 1 tab PO QAM 02/07/21 02/02/24 History mg-lycopene 300 mcg-lutein 250 mcg tablet (Centrum Silver) diaper,brief,adult,disposable #104 ea 11/09/21 01/22/24 Rx (Depend Underwear For Women Large) rosuvastatin 5 mg tablet 5 mg PO DAILY #90 tabs 01/16/23 02/02/24 Rx flash glucose scanning reader #1 ea 03/02/23 01/22/24 Rx (FreeStyle Best 2 [place]) flash glucose sensor (FreeStyle #1 ea 03/02/23 01/22/24 Rx Best 2 Sensor kit) blood-glucose meter (Accu-Chek #1 ea 03/10/23 01/22/24 Rx Misty Plus Meter) levothyroxine 50 mcg tablet 50 mcg PO QAM #90 tabs 04/13/23 02/02/24 Rx blood sugar diagnostic (Accu-Chek #100 ea 08/03/23 01/22/24 Rx Misty Plus test strips) lancets (Accu-Chek Softclix #100 ea 08/03/23 01/22/24 Rx Lancets) glimepiride 4 mg tablet 4 mg PO BID #180 tabs 01/09/24 02/02/24 Rx olmesartan 5 mg tablet 5 mg PO QAM 02/02/24 02/02/24 History omeprazole 40 mg capsule,delayed 40 mg PO BID 02/02/24 02/02/24 History release semaglutide 7 mg tablet 7 mg PO QAM 02/02/24 02/02/24 History magnesium chloride 64 mg 64 mg PO BID #60 tabs 02/07/24 Rx (magnesium chloride) tablet,delayed release (Mag 64) Hospital Stay Data Consultations 02/02/24 13:04 ED Decision to Admit Stat 02/03/24 07:38 Consult Orthopedic Surgery Routine Diagnostic Imagining Performed Laboratory Results WBC 5.59 K/ul (4.8-10.8) 02/07/24 07:07 RBC 3.67 M/uL (4.20-5.40) L 02/07/24 07:07 Hgb 11.6 g/dl (12.0-16.0) L 02/07/24 07:07 Hct 34.2 % (37.0-47.0) L 02/07/24 07:07 MCV 93.2 fL (80.0-100.0) 02/07/24 07:07 MCH 31.6 pg (25.0-34.0) 02/07/24 07:07 MCHC 33.9 g/dL (32.0-36.0) 02/07/24 07:07 RDW Std Deviation 44.0 fL (36.4-46.3) 02/07/24 07:07 RDW Coeff of Barry 13.0 % (11.5-14.5) 02/07/24 07:07 Plt Count 264 K/uL (130-400) 02/07/24 07:07 MPV 9.1 fL (9.4-12.4) L 02/07/24 07:07 Immature Gran % (Auto) 0.3 % 02/05/24 06:51 Neut % (Auto) 59.0 % 02/05/24 06:51 Lymph % (Auto) 30.4 % 02/05/24 06:51 [place] % (Auto) 8.2 % 02/05/24 06:51 Eos % (Auto) 1.9 % 02/05/24 06:51 Baso % (Auto) 0.2 % 02/05/24 06:51 Neut # (Auto) 3.43 K/uL (1.40-6.50) 02/05/24 06:51 Lymph # (Auto) 1.77 K/uL (1.20-3.40) 02/05/24 06:51 [place] # (Auto) 0.48 K/uL (0.11-0.59) 02/05/24 06:51 Eos # (Auto) 0.11 K/uL (0.00-0.50) 02/05/24 06:51 Baso # (Auto) 0.01 K/uL (0.00-0.20) 02/05/24 06:51 Immature Gran # (Auto) 0.02 K/uL (0.01-0.20) 02/05/24 06:51 PT 11.1 Seconds (9.0-12.0) 02/02/24 11:05 INR 1.0 (0.9-1.1) 02/02/24 11:05 APTT 32 Seconds (21-31) H 02/02/24 11:05 PTT Ratio 1.2 02/02/24 11:05 Sodium 135 mmol/L (136-145) L 02/07/24 07:07 Potassium 4.2 mmol/L (3.5-5.1) 02/07/24 07:07 Chloride 99 mmol/L (98-107) 02/07/24 07:07 Carbon Dioxide 27 mmol/L (21-32) 02/07/24 07:07 Anion Gap 9 (3-11) 02/07/24 07:07 BUN 23 mg/dl (6-23) 02/07/24 07:07 Creatinine 1.01 mg/dl (0.6-1.2) 02/07/24 07:07 Est Cr Clr Drug Dosing 36.7 ml/min 02/07/24 07:07 Est GFR ( Amer) 58.4 ml/min 02/07/24 07:07 Est GFR (Non-Af Amer) 50.4 ml/min 02/07/24 07:07 BUN/Creatinine Ratio 22.8 (10-20) H 02/07/24 07:07 Glucose 162 mg/dl (70-99(Fasting)) H 02/07/24 07:07 POC Glucose 190 mg/dl (70-99) H 02/07/24 12:08 Estimat Average Glucose 200 mg/dl 02/04/24 05:17 Hemoglobin A1c 8.6 % (4.5-5.6) H 02/04/24 05:17 Lactate 1.8 mmol/L (0.4-2.0) 02/02/24 11:47 Calcium 9.5 mg/dl (8.6-10.3) 02/07/24 07:07 Magnesium 1.4 mg/dl (1.7-2.4) L 02/07/24 07:07 Total Bilirubin 0.6 mg/dl (0.2-1.0) 02/05/24 06:51 AST 18 U/L (13-39) 02/05/24 06:51 ALT 15 U/L (7-52) 02/05/24 06:51 Alkaline Phosphatase 47 U/L (34-104) 02/05/24 06:51 Total Creatine Kinase 170 U/L (26-192) 02/05/24 06:51 Troponin I High Sens 27.9 pg/ml (0-14) H 02/03/24 07:48 Total Protein 6.8 gm/dl (6.0-8.3) 02/05/24 06:51 Albumin 3.5 gm/dl (3.4-5.0) 02/05/24 06:51 Globulin 3.3 gm/dl (2.5-4.0) 02/05/24 06:51 Albumin/Globulin Ratio 1.1 (0.9-2) 02/05/24 06:51 TSH 2.877 uIu/ml (0.300-4.500) 02/03/24 07:48 Urine Color Yellow 02/02/24 12:15 Urine Appearance Cloudy (Clear) A 02/02/24 12:15 Urine pH 5.5 (4.5-7.5) 02/02/24 12:15 POC Urine pH 5 (4.5-7.5) 02/02/24 12:21 Ur Specific [place] 1.019 (1.000-1.030) 02/02/24 12:15 Urine Protein 2+ (Negative) H 02/02/24 12:15 POC Urine Protein Trace (Negative) H 02/02/24 12:21 Urine Glucose (UA) 1+ (Negative) H 02/02/24 12:15 POC Ur Glucose (UA) 50 (Normal) H 02/02/24 12:21 Urine Ketones Negative (Negative) 02/02/24 12:15 POC Urine Ketones Negative (Negative) 02/02/24 12:21 Urine Blood 3+ (Negative) H 02/02/24 12:15 POC Urine Blood 250 (Negative) H 02/02/24 12:21 Urine Nitrite Negative (Negative) 02/02/24 12:15 POC Urine Nitrite Negative (Negative) 02/02/24 12:21 Urine Bilirubin Negative (Negative) 02/02/24 12:15 POC Urine Bilirubin Negative (Negative) 02/02/24 12:21 Urine Urobilinogen Negative (Negative) 02/02/24 12:15 POC Urine Urobilinogen Normal (Normal) 02/02/24 12:21 Ur Leukocyte Esterase 1+ (Negative) H 02/02/24 12:15 POC U Leukocyte Esteras Negative (Negative) 02/02/24 12:21 Urine WBC (Auto) 6-10 /hpf (0-5) H 02/02/24 12:15 Urine RBC (Auto) >20 /hpf (0-2) H 02/02/24 12:15 U Hyaline Cast (Auto) >20 /lpf (0-2) H 02/02/24 12:15 U Epithel Cells (Auto) 3-5 /hpf (0-2) H 02/02/24 12:15 Urine Bacteria (Auto) None Seen (None Seen) 02/02/24 12:15 Granular Casts Present /lpf (None Prsent) A 02/02/24 12:15 Lyme Disease Screen Negative (Negative) 02/03/24 07:48 SARS-CoV-2, RNA, NAAT NEGATIVE (NEGATIVE) 02/02/24 11:47 Impressions Chest X-Ray 02/02/24 10:30 SINGLE VIEW CHEST CLINICAL HISTORY: Fall. FINDINGS: An AP, portable, upright chest radiograph is compared to study dated 02/07/2021. The heart is enlarged noting atherosclerotic calcification of the thoracic aorta. The pulmonary vasculature is noncongested. Chronic interstitial thickening is similar to previous. There is bibasilar scarring/atelectasis. No airspace consolidation or large pleural effusion is identified. No pneumothorax is seen. The skeletal structures are osteopenic. The bony thorax is grossly intact. Cholecystectomy clips are seen in the upper abdomen. IMPRESSION: Cardiomegaly with no acute cardiopulmonary abnormality identified. ACT 112: Negative or not required by law. Electronically signed by: Johnson Ahumada M.D. 02/02/2024 11:[address] 02/02/24 11:19 CT SCAN OF THE BRAIN WITHOUT IV CONTRAST CLINICAL HISTORY: Falls. Generalized weakness. COMPARISON STUDY: CT of the brain dated 05/06/2020. TECHNIQUE: Unenhanced axial CT scan of the brain is performed from the vertex to the skull base. A dose lowering technique was utilized adhering to the principles of ALARA. CT DOSE: 547.75 mGy.cm FINDINGS: Brain parenchyma: There is age-related involutional change noting moderate subcortical and periventricular microangiopathic disease. There is no hemorrhage, mass effect, or evidence of acute territorial ischemia by CT crite oziel. Palacois-white matter differentiation is preserved. No extra-axial fluid collection is seen. Ventricles, sulci, cisterns: Prominent secondary to involutional change. Intracranial vasculature: There is atherosclerotic calcification of the cavernous carotid and vertebral arteries. Calvarium: Unremarkable. Sinuses and mastoids: The visualized paranasal sinuses are clear. The mastoid air cells are well pneumatized. Orbits: The bony orbits are grossly intact. There are bilateral ocular lens implants. IMPRESSION: There is no hemorrhage, mass effect, or evidence of acute territorial ischemia by CT criteria. ACT 112: Negative or not required by law. Electronically signed by: Johnson Ahumada M.D. 02/02/2024 11:41 AM Knee X-Ray 02/02/24 11:20 LEFT KNEE 2 VIEWS CLINICAL HISTORY: Posterior knee pain. Fall. FINDINGS: AP and crosstable lateral views of the left knee are obtained. No prior studies are available for comparison at the time of dictation. The skeletal structures are osteopenic. No acute fracture is identified. There is severe degenerative narrowing in the medial compartment with bony sclerosis and irregularity. Moderate to severe narrowing is seen in the lateral and patellofemoral compartments. Chondrocalcinosis is seen in the medial and lateral compartments. There is a large joint effusion. Bony overgrowth is seen along the posterior aspect of the distal femur and proximal tibia. There are marginal osteophytes and patellar enthesophytes. Prepatellar soft tissue swelling is observed. Advanced atherosclerotic calcification is noted in the popliteal artery. IMPRESSION: 1. Soft tissue swelling and large joint effusion with no radiographic evidence of acute fracture. If there is clinical concern for occult fracture a CT scan could be considered. 2. Osteopenia with degenerative change and chondrocalcinosis as above. Electronically signed by: Johnson Ahumada M.D. 02/02/2024 11:[address] 02/02/24 13:[address] DOSE: 980.97 mGy.cm HISTORY: L3 central back pain ?fracture TECHNIQUE: Multiaxial CT images of the lumbar spine were performed and reform atted in the sagittal and coronal plane without the use of contrast. A dose lowering technique was utilized adhering to the principles of ALARA. COMPARISON: None. FINDINGS: No fracture or subluxation within the lumbar spine. The visualized sacrum is intact. Severe disc space narrowing at T11-T12, L3-L4, L4-L5. Mild disc space narrowing at L5-S1. Moderate to severe facet degenerative changes throughout the lumbar spine. Paravertebral soft tissues are unremarkable. There is moderate central canal narrowing at L3-L4 and L4-L5 due to the broad-based posterior disc bulges. A single stable mildly enlarged right retroperitoneal lymph node on image 233 measuring 14 mm. This is of doubtful clinical significance given the long-term stability. Moderate calcified plaque within the normal caliber abdominal aorta. IMPRESSION: 1. No fracture or subluxation within the lumbar spine. 2. Degenerative changes as described above. ACT 112: Negative or not required by law. Electronically signed by: Mike Sexton M.D. 02/02/2024 2:09 PM Hip/Pelvis X-Ray 02/02/24 13:27 SINGLE VIEW PELVIS; SINGLE VIEW RIGHT HIP; SINGLE VIEW LEFT HIP CLINICAL HISTORY: Fall. Bilateral hip pain. FINDINGS: AP views of the pelvis and frog leg views of the right and left hip are correlated with pelvic CT dated 09/16/2015. The skeletal structures are osteopenic. There is no radiographic evidence of acute fracture involving the hips or bony pelvis. Mild arthritic change and joint space narrowing is seen in the hips. There is degenerative sclerosis of the sacroiliac joints and pubic symphysis. The overlying soft tissues are within normal limits. Small phleboliths are noted in the pelvis. Lumbosacral spondylosis is partially imaged. 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 These are unchanged from the [address] Cholecystectomy clips are noted. IMPRESSION: No acute bony abnormality is identified. Electronically signed by: Johnson Ahumada M.D. 02/02/2024 4:11 PM Abdomen/Pelvis CT 02/03/24 12:23 CT SCAN OF THE ABDOMEN AND PELVIS COMBO CLINICAL HISTORY: Fall. Urinary tract infection. COMPARISON STUDY: Abdominal CT dated 09/16/2015. TECHNIQUE: Before and following the IV administration of 94 cc of Optiray 320, CT scan of the abdomen and pelvis is performed from the lung bases to the proximal femora. Images are reviewed in the axial, sagittal, and coronal planes. IV contrast was administered without complication. A dose lowering technique was utilized adhering to the principles of ALARA. The examination is compromised by motion artifact. CT DOSE: 2416.24 mGy.cm FINDINGS: Lung bases: The heart is normal in size and without pericardial effusion. There is bibasilar scarring/atelectasis. No airspace consolidation or pleural effusion is identified. A small hiatal hernia is noted. Liver: The contrast-enhanced liver is normal in size, contour, and attenuation. There is no intrahepatic biliary ductal dilatation. The hepatic veins and portal veins are patent. Gallbladder: Surgically absent noting clips in the gallbladder fossa. Spleen: Normal in size and attenuation. 2 splenic evident is made of a 13 mm are statistically doubtful significance. There is trace subcapsular fluid. Peripherally calcified splenic artery aneurysms measure up to 1.5 cm. Pancreas: Moderately atrophic and grossly unremarkable. Adrenal glands: Unremarkable. Kidneys: The contrast enhanced kidneys demonstrate mild cortical atrophy and are without hydronephrosis. No renal calculi are identified and no ureteral stone is seen on the unenhanced series. The kidneys enhance symmetrically. 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 Abdominal vasculature: The abdominal aorta is normal in course and caliber noting advanced atherosclerotic calcification. Bowel: There is mild colonic diverticulosis without CT evidence of acute diverticulitis. No bowel obstruction is seen. The appendix is well-visualized and normal. Peritoneum: There is no intraperitoneal free air or abdominal ascites. Lymphadenopathy: A mildly enlarged right retroperitoneal node on image #176 measures up to 11 mm in short axis. This is similar in size dating back to 2016 and of low suspicion. A mildly enlarged right external iliac chain node on image #276 measuring 10 mm short axis is also unchanged. No suspicious lymphadenopathy is seen in the abdomen or pelvis. Pelvic viscera: The bladder is decompressed and the wall appears mildly t hickened with mucosal hyperemia. The uterus is surgically absent. No adnexal lesion is seen. Skeletal structures: The skeletal structures are osteopenic. There is moderate to advanced lumbosacral spondylosis. Sclerotic change is noted in the sacroiliac joints. No lytic or blastic lesions are seen. IMPRESSION: 1. The bladder wall appears mildly thickened with mucosal hyperemia. Correlate with clinical findings and urinalysis. 2. Trace subcapsular fluid is noted in the spleen. This is of indeterminate chronicity and significance. No splenic laceration is identified. 3. 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 4. Additional findings as above. ACT 112: Negative or not required by law. Electronically signed by: Johnson Ahumada M.D. 02/03/2024 7:30 PM Pending Results Patient Have Any Pending Studies at Discharge: No Discharge Instructions Given to Patient (Per Discharging Provider) Mrs. Mendoza, Dashawn were admitted to the hospital after mechanical fall at home. You had extensive imaging done on admission, with a left knee joint effusion of note. You were seen by orthopedics who did not feel that there is any acute interventions needed. If you would like to follow-up with Ortho in their office for your chronic knee pain or cortisone injections in your knees, you can contact the [facility] orthopedics office to schedule an appointment. Additionally, you were treated for a UTI while hospitalized. Your treatment has completed and your urine culture is negative so there is no need for further antibiotics on discharge. Also, the liquor establishment manager reviewed your regimen and recommends continuing your home regimen of glimepiride 4 mg twice daily and Rybelsus 7 mg every morning on discharge. Upon discharge from the hospital: * You are being discharged with home health services. * Follow-up with the liquor establishment manager. Their office will call you with an appointment date and time. * Follow-up with your PCP. Their office will call you with an appointment date and time. * Take magnesium supplementation twice daily. This prescription has been sent to the [facility] pharmacy in [place]. * Continue all of your other home medications as prescribed. Please return to the hospital if you experience any of the following: Chest pain, shortness of breath, difficulty breathing, heart palpitations, lightheadedness, dizziness, passing out, fall with head strike/injury/loss of consciousness. It was a pleasure taking care of you while you were in the hospital, Liyah Rivera PA-C Total Time Total Time Spent Total Time Spent (In Minutes): Greater than 30 minutes spent completing this discharge process including direct patient care, medication reconciliation, documentation, review of labs and images, and coordination of care. Coding Level of Care Code 84537 INP/OBS DISCH >30 MIN Diagnoses Fall W19.XXXA Encounter type: initial encounter Urinary tract infection N39.0 Elevated CK R74.8 Diabetes mellitus with microalbuminuria E11.29; R80.9 HTN (hypertension) I10
== END 2024-02-07 14:05 | disposition home health service (06) | DRG 641 ==
LOC: ED 10:12 → SUATTDRO 12:59 → EDINP 12:59 → 2N 15:29
DX: I10 Essential (primary) hypertension; E03.9 Hypothyroidism, unspecified; E11.9 Type 2 diabetes mellitus without complications; E78.5 Hyperlipidemia, unspecified; T38.3X5A Adverse effect of insulin and oral hypoglycemic [antidiabetic] drugs, initial encounter; E86.0 Dehydration; N39.0 Urinary tract infection, site not specified; Z11.52 Encounter for screening for COVID-19; Z79.890 Hormone replacement therapy; E83.42 Hypomagnesemia; Z79.899 Other long term (current) drug therapy; Z79.84 Long term (current) use of oral hypoglycemic drugs; Z88.2 Allergy status to sulfonamides; M17.12 Unilateral primary osteoarthritis, left knee

== ENCOUNTER 2024-10-15 18:30 | Inpatient (IN) ==
[2024-10-15 19:22] LABS: Basophils # (auto) 0.02 K/uL (0.00-0.20); Basophils % (auto) 0.2 %; Hemoglobin 11.1 g/dl (12.0-16.0); Immature Granulocytes # (auto) 0.09 K/uL (0.01-0.20); Immature Granulocytes % (auto) 0.7 %; Lymphocytes # (auto) 0.65 K/uL (1.20-3.40); Mean Corpuscular Hgb Conc 34.7 g/dL (32.0-36.0); Mean Corpuscular Volume 92.2 fL (80.0-100.0); Monocytes # (auto) 0.74 K/uL (0.11-0.59); Monocytes % (auto) 5.6 %; Neutrophils # (auto) 11.61 K/uL (1.40-6.50); Neutrophils % (auto) 88.5 %; Platelet Count 227 K/uL (130-400); RDW Coefficient of Variation 12.9 % (11.5-14.5); RDW Standard Deviation 43.4 fL (36.4-46.3); Red Blood Count 3.47 M/uL (4.20-5.40); White Blood Count 13.11 K/ul (4.8-10.8)
[2024-10-15 19:48] LABS: Alanine Aminotransferase 10 U/L (7-52); Albumin Level 3.6 gm/dl (3.4-5.0); Alkaline Phosphatase 78 U/L (34-104); Anion Gap 12 (3-11); Aspartate Aminotransferase 18 U/L (13-39); BUN Creatinine Ratio 16.7 (10-20); Bilirubin,Total 1.1 mg/dl (0.2-1.0); Blood Urea Nitrogen 17 mg/dl (6-23); Calcium 7.9 mg/dl (8.6-10.3); Carbon Dioxide 31 mmol/L (21-32); Chloride 91 mmol/L (98-107); Globulin 3.6 gm/dl (2.5-4.0); Glucose 329 mg/dl (70-99(Fasting)); Potassium 3.3 mmol/L (3.5-5.1); Sodium 134 mmol/L (136-145); Total Protein 7.2 gm/dl (6.0-8.3)
[2024-10-15 20:18] LABS: Adenovirus PCR Not Detected (NotDetected); Bordetella parapertussis PCR Not Detected (NotDetected); Bordetella pertussis PCR Not Detected (NotDetected); Chlamydia pneumoniae PCR Not Detected (NotDetected); Coronavirus 229E PCR Not Detected (NotDetected); Coronavirus CoV-2 (COVID19)PCR Not Detected (NotDetected); Coronavirus HKU1 PCR Not Detected (NotDetected); Coronavirus NL63 PCR Not Detected (NotDetected); Coronavirus OC43PCR Not Detected (NotDetected); Human Metapneumovirus PCR Not Detected (NotDetected); Influenza A PCR Not Detected (NotDetected); Influenza B PCR Not Detected (NotDetected); Mycoplasma pneumoniae PCR Not Detected (NotDetected); Parainfluenza Virus 1 PCR Not Detected (NotDetected); Parainfluenza Virus 2 PCR Not Detected (NotDetected); Parainfluenza Virus 3 PCR Not Detected (NotDetected); Parainfluenza Virus 4 PCR Not Detected (NotDetected); Respiratory Syncytial VirusPCR Not Detected (NotDetected); Rhinovirus/Enterovirus PCR Not Detected (NotDetected)
[2024-10-15 21:14] LABS: Base Excess VBG 8.8 mEq/L; HCO3 VBG 34 mmol/L; Oxygen Saturation VBG < 60.0 %; PCO2 VBG 45 mmHg (38-50); PO2 VBG 34 mmHg; pH VBG 7.48 (7.36-7.41)
--- NOTE | 2024-10-15 21:15 | Emergency Department Note ---
Impression & Plan AMS (altered mental status), Generalized weakness, Acute UTI (urinary tract infection), Hypoxia, Leukocytosis, Acute hypokalemia, Hyperglycemia, Pneumonia involving right lung ED Provider Note HISTORY OF PRESENT ILLNESS: Patient is an 89-year-old female presenting with sore throat and a cough. Patient reports that she started having a sore throat and a cough productive of a yellow sputum starting 4 days ago. She does not wear any supplemental oxygen at baseline. She denies any chest pain but does report feeling short of breath. She denies any measured fevers at home, but reports she has had episodes of sweats and chills. Denies any dysuria or hematuria, but she does wear depends as she has frequent urinary incontinence. She denies any abdominal pain. Denies any nausea or vomiting. Denies any DVT or PE history. She is not on any anticoagulation. Denies any history of cardiac stents. She does report a history of diabetes but states she has not taken her diabetic medications this evening secondary to coming to the ER. Friend at bedside reports that the patient seems very weak. She normally gets around at home by herself with a walker. Patient lives alone. Friend reports that the patient also is very confused, which is abnormal for her. ROS: as above PHYSICAL EXAM: Constitutional: Patient appears in no acute distress. HENT: Head: Normocephalic and atraumatic. Eyes: EOMI, PERRL Mouth/Throat: Mucous membranes moist. Neck: Trachea midline. Neck supple. Cardiovascular: Tachycardic with regular rhythm. No murmurs, rubs or gallops. Intact distal pulses. Pulmonary/Chest: No respiratory distress. Breath sounds clear and equal bilaterally. No wheezes or rales. On 2 L nasal cannula Abdominal: Abdomen soft, no tenderness, rebound or guarding. Musculoskeletal: No edema, tenderness or deformity noted. Skin: Warm and dry. No rash, erythema, pallor or cyanosis Psychiatric: Appropriate mood and affect for situation. Neurological: Alert to person and place. CN II-XII grossly intact, moving all extremities equally and fully. Patient seems confused at baseline and then starts mumbling nonsensically and appears to be reaching for things that are not there. MDM: - Vitals signs showed tachycardia - History obtained via patient and patient's friend, given patient's confusion. History as above. - Chronic conditions affecting care: hypothyroidism; HLD; DM-2; HTN - Differential diagnoses include, but are not limited to: UTI; pneumonia; viral syndrome; ACS; DKA; electrolyte abnormality - Order placed for continuous cardiac monitoring. At this time, monitor showed rate of 108 bpm with normal sinus rhythm, per my interpretation. - External medical records reviewed. Primary care visit note dated 06/03/2024 was reviewed. Patient follows in their clinic for her diabetes and hypothyroidism. - When brought back from the waiting room to an examination bay, patient was very weak and required multiple nurses to assist her into the bed. She also became hypoxic with saturations down to 87%, and she was started on 2 L nasal cannula. - EKG image interpreted by myself showed normal sinus rhythm. Rate 99 bpm. QT 372. No acute ischemic changes - Laboratory workup interpreted by myself showed leukocytosis (WBC 13.11); hyponatremia (Na 134); hypokalemia (K 3.3); elevated anion gap (12); hyperglycemia (glucose 329); hypocalcemia (Ca 7.9); normal lactate; normal AST/ALT; elevated procalcitonin (0.72) - Viral respiratory panel negative - Strep swab negative - VBG grossly negative. Patient not obviously in DKA. - Blood cultures obtained - CXR image reviewed by myself showed right sided pneumonia, per my interpretation. - UA obtained via straight cath shows evidence of infection. Patient given 2 g IV Rocephin. - Given the pneumonia on top of her UTI, PO azithromycin was also ordered. - Patient's sepsis fluid volume calculation based on ideal body weight is 1363.50 mL - Given patient's tachycardia, leukocytosis and sources of infection (pneumonia and UTI), patient meets sepsis criteria. - Patient given 2L NS in ER. Given 10 mEq IV potassium for electrolyte replacement - Discussion was had with protective services case worker about patient's case and need for admission - Hospitalist consulted for admission - Patient admitted to [facility]ist service for further evaluation and management. I have personally spent 33 minutes of critical care time in the direct management of this patient. This includes bedside care, interpretation of diagnostic studies, and testing, discussion with consultants, patient, and family members, and other required patient management activities. This 33 minutes is in excess of all separately billable procedures. ASSESSMENT AND PLAN: Diagnosis: Altered mental status; generalized weakness; acute UTI; hypoxia; acute hypokalemia; leukocytosis; hyperglycemia; pneumonia involving right lung Plan: Admit Past Med/Surg History Problem List (Updated 10/15/24 @ 22:21 by Magda Hernandez MD) Pneumonia involving right lung (Acute) Hyperglycemia (Acute) Acute hypokalemia (Acute) Leukocytosis (Acute) Hypoxia (Acute) Acute UTI (urinary tract infection) (Acute) Generalized weakness (Acute) AMS (altered mental status) (Acute) HTN (hypertension) Effusion of knee joint, left (Acute) Osteoarthritis of left knee (Acute) Weakness (Acute) Diabetes mellitus with microalbuminuria Uterine prolapse (Acute) Hypercholesteremia (Chronic) Hypothyroidism (Chronic) Lymphadenopathy of head and neck Urinary symptom or sign Hematuria Microscopic hematuria Recurrent UTI (urinary tract infection) Incomplete emptying of bladder Chronic cystitis Cystocele Urinary incontinence 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 Medical History Cholelithiases (05/17/13) Surgical History History of vaginal surgery H/O vaginal sling procedure History of surgery on arm History of hysterectomy vaginal History of laparoscopic cholecystectomy History of cataract surgery History of colonoscopy Family History Mother Asthma Diabetes Father Diabetes Sister Diabetes Dementia Brother Cancer Myocardial infarction Other Family history of diabetes mellitus Family history of hypertension Denies family history of Ovarian cancer Prostate cancer Coronary heart disease Breast cancer Colorectal cancer Stroke Social History (Updated 05/30/24 @ 10:16 by ALFRED Rivera) Smoking Status: Never smoker Tobacco Type: Cigarettes Age Started Using Tobacco: 20; Age Quit Using Tobacco: 21; packs per day: 0; Second Hand Exposure: No; Do You Dip or Chew Tobacco: No; Hx Alcohol Use: No Hx Substance Use: No Preferred Language: Samoan Communication Ability: Effective Visual Impairment: No Limitations Hearing Ability: Normal Vb Net Programmer Required: No Beliefs That Will Affect Care: None marital status: / Current Living Situation: Alone current occupational status: disabled Feels Safe at Home: Yes Childhood Exposure to Second-Hand Smoke: No Diet: regular caffeine: Yes during the past year weight has: remained stable Dental Care, Regularly: No Physical Activity Frequency: Does not Exercise Seatbelt Use: always Sunscreen Use: No Assistive Devices: Cane and Walker Allergies Allergies Allergy/AdvReac Type Severity Reaction Status Date / Time sulfamethoxazole Allergy Intermediate Hives Verified 10/15/24 21:51 [From Bactrim] trimethoprim [From Bactrim] Allergy Intermediate Hives Verified 10/15/24 21:51 metformin AdvReac Intermediate diarrhea Verified 10/15/24 21:51 Home Meds Home Medications Medication Instructions Recorded Confirmed [id number]-[id number] acid 0.4 1 tab PO QAM 02/07/21 10/15/24 mg-lycopene 300 mcg-lutein 250 mcg tablet (Centrum Silver) semaglutide 7 mg tablet 7 mg PO QAM 02/02/24 10/15/24 rosuvastatin 5 mg tablet 5 mg PO QPM 10/15/24 10/15/24 Previous Rx's Medication Instructions Recorded diaper,brief,adult,disposable #104 ea 11/09/21 (Depend Underwear For Women Large) flash glucose scanning reader #1 ea 03/02/23 (SocialCompareStyle Best 2 Bruni) flash glucose sensor (FreeStyle #1 ea 03/02/23 Best 2 Sensor kit) blood-glucose meter (Accu-Chek #1 ea 03/10/23 Misty Plus Meter) glimepiride 4 mg tablet 4 mg PO BID #180 tabs 01/09/24 walker (Ultra-Light Rollator misc) #1 ea 02/15/24 magnesium chloride 64 mg 64 mg PO BID #180 tabs 05/30/24 (magnesium chloride) tablet,delayed release (Mag 64) levothyroxine 50 mcg tablet 50 mcg PO QAM #90 tabs 08/06/24 omeprazole 40 mg capsule,delayed 40 mg PO BID #180 caps 08/09/24 release blood sugar diagnostic (Accu-Chek #100 ea 08/15/24 Guide test strips) lancets (Accu-Chek Softclix #100 ea 08/26/24 Lancets) olmesartan 5 mg tablet 5 mg PO QAM #90 tabs 10/11/24 Results & Data (ED) Vital Signs Vital Signs - 24 hr 10/15/24 18:39 10/15/24 19:26 Temperature 36.9 C Temperature Source Temporal Artery Scan Pulse Rate 102 H 108 H Respiratory Rate 20 Respiratory Effort / Characteristics Non-Labored Spontaneous Respiratory Depth Normal Blood Pressure 139/72 Blood Pressure Mean 94 Blood Pressure Position Sitting Pulse Oximetry 94 Oxygen Delivery Method Room Air Sepsis Recent Fever Within 48 Hours No Sepsis New/Unexplained Change in Mental Status N/A Sepsis Action Taken by Nursing No Action Required Laboratory Data 10/15/24 19:02 10/15/24 19:02 Lab Results 10/15/24 10/15/24 10/15/24 Range/Units 19:02 20:50 21:04 WBC 13.11 H (4.8-10.8) K/ul RBC 3.47 L (4.20-5.40) M/uL Hgb 11.1 L (12.0-16.0) g/dl Hct 32.0 L (37.0-47.0) % MCV 92.2 (80.0-100.0) fL MCH 32.0 (25.0-34.0) pg MCHC 34.7 (32.0-36.0) g/dL RDW Std Deviation 43.4 (36.4-46.3) fL RDW Coeff of Barry 12.9 (11.5-14.5) % Plt Count 227 (130-400) K/uL MPV 10.0 (9.4-12.4) fL Immature Gran % (Auto) 0.7 % Neut % (Auto) 88.5 % Lymph % (Auto) 5.0 % Humphreys % (Auto) 5.6 % Eos % (Auto) 0.0 % Baso % (Auto) 0.2 % Neut # (Auto) 11.61 H (1.40-6.50) K/uL Lymph # (Auto) 0.65 L (1.20-3.40) K/uL Humphreys # (Auto) 0.74 H (0.11-0.59) K/uL Eos # (Auto) 0.00 (0.00-0.50) K/uL Baso # (Auto) 0.02 (0.00-0.20) K/uL Immature Gran # (Auto) 0.09 (0.01-0.20) K/uL VBG pH 7.48 H (7.36-7.41) VBG pCO2 45 (38-50) mmHg VBG pO2 34 mmHg VBG HCO3 34 mmol/L VBG O2 Saturation < 60.0 % VBG Base Excess 8.8 mEq/L Sodium 134 L (136-145) mmol/L Potassium 3.3 L (3.5-5.1) mmol/L Chloride 91 L (98-107) mmol/L Carbon Dioxide 31 (21-32) mmol/L Anion Gap 12 H (3-11) BUN 17 (6-23) mg/dl Creatinine 1.02 (0.6-1.2) mg/dl Est Cr Clr Drug Dosing Not Reportable eGFR 53.25 BUN/Creatinine Ratio 16.7 (10-20) Glucose 329 H* (70-99(Fasting)) mg/dl Lactate 1.7 (0.4-2.0) mmol/L Calcium 7.9 L (8.6-10.3) mg/dl Total Bilirubin 1.1 H (0.2-1.0) mg/dl AST 18 (13-39) U/L ALT 10 (7-52) U/L Alkaline Phosphatase 78 (34-104) U/L Total Protein 7.2 (6.0-8.3) gm/dl Albumin 3.6 (3.4-5.0) gm/dl Globulin 3.6 (2.5-4.0) gm/dl Albumin/Globulin Ratio 1.0 (0.9-2) Procalcitonin 0.72 H (0-0.5) ng/ml Urine Color Urine Appearance (Clear) Urine pH (4.5-7.5) Ur Specific [place] (1.000-1.030) Urine Protein (Negative) Urine Glucose (UA) (Negative) Urine Ketones (Negative) Urine Blood (Negative) Urine Nitrite (Negative) Urine Bilirubin (Negative) Urine Urobilinogen (Negative) Ur Leukocyte Esterase (Negative) Urine WBC (Auto) (0-5) /hpf Urine RBC (Auto) (0-2) /hpf U Hyaline Cast (Auto) (0-2) /lpf U Epithel Cells (Auto) (0-2) /hpf Urine Bacteria (Auto) (None Seen) Adenovirus (PCR) Not Detected (NotDetected) B. pertussis DNA (PCR) Not Detected (NotDetected) B.parapertussis DNA PCR Not Detected (NotDetected) C. pneumoniae DNA (PCR) Not Detected (NotDetected) Coronavirus OC43 (PCR) Not Detected (NotDetected) Coronavirus HKU1 (PCR) Not Detected (NotDetected) Coronavirus 229E (PCR) Not Detected (NotDetected) SARS-CoV-2 (PCR) Not Detected (NotDetected) Coronavirus NL63 (PCR) Not Detected (NotDetected) Human Metapneumovir PCR Not Detected (NotDetected) Influenza Type A (PCR) Not Detected (NotDetected) Influenza Type B (PCR) Not Detected (NotDetected) M. pneumoniae (PCR) Not Detected (NotDetected) Parainfluenza 1 (PCR) Not Detected (NotDetected) Parainfluenza 2 (PCR) Not Detected (NotDetected) Parainfluenza 3 (PCR) Not Detected (NotDetected) Parainfluenza 4 (PCR) Not Detected (NotDetected) RSV (PCR) Not Detected (NotDetected) Entero/Rhino (PCR) Not Detected (NotDetected) Group A Strep (PCR) NOT DETECTED (NotDetected) 10/15/24 Range/Units 21:16 WBC (4.8-10.8) K/ul RBC (4.20-5.40) M/uL Hgb (12.0-16.0) g/dl Hct (37.0-47.0) % MCV (80.0-100.0) fL MCH (25.0-34.0) pg MCHC (32.0-36.0) g/dL RDW Std Deviation (36.4-46.3) fL RDW Coeff of Barry (11.5-14.5) % Plt Count (130-400) K/uL MPV (9.4-12.4) fL Immature Gran % (Auto) % Neut % (Auto) % Lymph % (Auto) % Humphreys % (Auto) % Eos % (Auto) % Baso % (Auto) % Neut # (Auto) (1.40-6.50) K/uL Lymph # (Auto) (1.20-3.40) K/uL Humphreys # (Auto) (0.11-0.59) K/uL Eos # (Auto) (0.00-0.50) K/uL Baso # (Auto) (0.00-0.20) K/uL Immature Gran # (Auto) (0.01-0.20) K/uL VBG pH (7.36-7.41) VBG pCO2 (38-50) mmHg VBG pO2 mmHg VBG HCO3 mmol/L VBG O2 Saturation % VBG Base Excess mEq/L Sodium (136-145) mmol/L Potassium (3.5-5.1) mmol/L Chloride (98-107) mmol/L Carbon Dioxide (21-32) mmol/L Anion Gap (3-11) BUN (6-23) mg/dl Creatinine (0.6-1.2) mg/dl Est Cr Clr Drug Dosing eGFR BUN/Creatinine Ratio (10-20) Glucose (70-99(Fasting)) mg/dl Lactate (0.4-2.0) mmol/L Calcium (8.6-10.3) mg/dl Total Bilirubin (0.2-1.0) mg/dl AST (13-39) U/L ALT (7-52) U/L Alkaline Phosphatase (34-104) U/L Total Protein (6.0-8.3) gm/dl Albumin (3.4-5.0) gm/dl Globulin (2.5-4.0) gm/dl Albumin/Globulin Ratio (0.9-2) Procalcitonin (0-0.5) ng/ml Urine Color Yellow Urine Appearance Cloudy A (Clear) Urine pH 6.5 (4.5-7.5) Ur Specific [place]ell 1.026 (1.000-1.030) Urine Protein 3+ H (Negative) Urine Glucose (UA) 2+ H (Negative) Urine Ketones 2+ H (Negative) Urine Blood 2+ H (Negative) Urine Nitrite Positive A (Negative) Urine Bilirubin Negative (Negative) Urine Urobilinogen Negative (Negative) Ur Leukocyte Esterase Trace H (Negative) Urine WBC (Auto) >50 H (0-5) /hpf Urine RBC (Auto) 11-20 H (0-2) /hpf U Hyaline Cast (Auto) 0-2 (0-2) /lpf U Epithel Cells (Auto) 0-2 (0-2) /hpf Urine Bacteria (Auto) 4+ H (None Seen) Adenovirus (PCR) (NotDetected) B. pertussis DNA (PCR) (NotDetected) B.parapertussis DNA PCR (NotDetected) C. pneumoniae DNA (PCR) (NotDetected) Coronavirus OC43 (PCR) (NotDetected) Coronavirus HKU1 (PCR) (NotDetected) Coronavirus 229E (PCR) (NotDetected) SARS-CoV-2 (PCR) (NotDetected) Coronavirus NL63 (PCR) (NotDetected) Human Metapneumovir PCR (NotDetected) Influenza Type A (PCR) (NotDetected) Influenza Type B (PCR) (NotDetected) M. pneumoniae (PCR) (NotDetected) Parainfluenza 1 (PCR) (NotDetected) Parainfluenza 2 (PCR) (NotDetected) Parainfluenza 3 (PCR) (NotDetected) Parainfluenza 4 (PCR) (NotDetected) RSV (PCR) (NotDetected) Entero/Rhino (PCR) (NotDetected) Group A Strep (PCR) (NotDetected) Administered Medications Discontinued Medications Sodium Chloride (Nss) 1,000 mls @ 999 mls/hr IV .Q1H1M ONE Stop: 10/15/24 21:36 Last Admin: 10/15/24 21:24 Dose: 999 mls/hr Documented By: KELLEN Potassium Chloride (K Sharath / Wtr) 10 meq in 100 mls @ 100 mls/hr IV ONE ONE Stop: 10/15/24 22:05 Last Admin: 10/15/24 21:24 Dose: 100 mls/hr Documented By: KELLEN Discharge Plan Visit Data Chief Complaint: Sore Throat Stated Complaint: SORE THROAT WEAK ED Provider: Magda Hernandez Discharge Problem: AMS (altered mental status), Generalized weakness, Acute UTI (urinary tract infection), Hypoxia, Leukocytosis, Acute hypokalemia, Hyperglycemia, Pneumonia involving right lung Forms Stand Alone Forms: [facility] Prescriptions Prescriptions: No Action (DME) Depend Underwear For Women Lrg Misc See Rx Instructions .Route Qty: 104 0RF Rx Instructions: Size Large/6 per day (DME) blood-glucose meter [Accu-Chek Misty Plus Meter] Misc See Rx Instructions .Route Qty: 1 0RF Rx Instructions: As directed glimepiride 4 mg tablet 4 mg PO BID Qty: 180 3RF (DME) Ultra-Light Rollator Misc See Rx Instructions .Route Qty: 1 0RF Rx Instructions: As directed~ Rollator shanelle magnesium chloride [Mag 64] 64 mg tablet,delayed release (DR/EC) 64 mg PO BID Qty: 180 3RF levothyroxine 50 mcg tablet 50 mcg PO QAM Qty: 90 3RF omeprazole 40 mg capsule,delayed release(DR/EC) 40 mg PO BID Qty: 180 3RF Rx Instructions: TAKE 1 CAPSULE BY MOUTH TWICE A DAY (DME) Accu-Chek Guide test strips Strip See Rx Instructions .Route Qty: 100 3RF Rx Instructions: Use to test daily (DME) lancets [Accu-Chek Softclix Lancets] Misc See Rx Instructions .ROUTE .MEDSUPPLY Qty: 100 5RF Rx Instructions: Use to test blood sugar 3 times a day. olmesartan 5 mg tablet 5 mg PO QAM Qty: 90 3RF (DME) FreeStyle Best 2 Bruni Misc See Rx Instructions .ROUTE .MEDSUPPLY Qty: 1 0RF Rx Instructions: As directed (DME) FreeStyle Best 2 Sensor Kit See Rx Instructions .Route Qty: 1 6RF Rx Instructions: change every 14 days Centrum Silver 0.4-300-250 mg-mcg-mcg Tablet 1 tab PO QAM semaglutide 7 mg tablet 7 mg PO QAM rosuvastatin 5 mg tablet 5 mg PO QPM Referrals Referrals: Nj Bashir, [Primary Care Provider] -
[2024-10-15] MEDS: POTASSIUM CHLORIDE / WTR 10 MEQ/100 ML PLCT IV ONE (21:24)
[2024-10-15] MEDS: SODIUM CHLORIDE 0.9% 1,000 ML IV ONE ×2 (21:24→22:48)
[2024-10-15 21:38] LABS: Appearance Urine Cloudy (Clear); Bacteria Urine Automated 4+ (None Seen); Bilirubin Urine Negative (Negative); Blood Urine 2+ (Negative); Cast Urine Automated 0-2 /lpf (0-2); Color Urine Yellow; Epithelial Cell Urine Auto 0-2 /hpf (0-2); Glucose Urine UA 2+ (Negative); Ketones Urine 2+ (Negative); Leukocyte Esterase Urine Trace (Negative); Nitrite Urine Positive (Negative); Protein Urine 3+ (Negative); Specific Gravity Urine 1.026 (1.000-1.030); Urobilinogen Urine Negative (Negative); WBC Urine Automated >50 /hpf (0-5); pH Urine 6.5 (4.5-7.5)
[2024-10-15] MEDS: cefTRIAXone SODIUM 2,000 MG/50 ML BAG IV STA (22:47)
[2024-10-15] MEDS: AZITHROMYCIN 250 MG TAB PO ONE (22:47)
--- NOTE | 2024-10-15 22:56 | History & Physical Report ---
Date of Service October 15, 2024 Assessment & Plan (1) Multifocal pneumonia: (2) Acute respiratory failure: (3) Respiratory alkalosis: (4) Sepsis: (5) Elevated troponin: (6) Hypomagnesemia: (7) Hypokalemia: (8) Urinary tract infection: (9) Hyperglycemia due to type 2 diabetes mellitus: (10) Generalized weakness: Plan Patient is a 89 yo female the past medical history of type II DM, hypertension, cystitis, urinary incontinence, frequent UTIs, hypothyroidism, HLD. Patient p resented to the ED for sore throat, cough, and weakness. Patient was found to have multifocal pneumonia, hypoxic at 87% on room air, meeting SIRS criteria, and a UTI. Patient appears ill and slightly confused upon examination for admission. She is being admitted to PCU for IV antibiotics. After admission, patient's troponin returned at 411.4 and magnesium 0.7. Patient's condition worsened, significant tachypnea and patient unable to lay back - 125 IV Solu- Medrol ordered along with DuoNebs and transitioned to oxy mask. #multi-focal PNA/hypoxia/respiratory alkalosis CXR showing patchy bilateral infiltrates chest CT showing Biofire negative, lactate negative Pro-Uche 0.72 respiratory alkalosis with tachypnea - VBG early arrival to ED relatively stable (7.48/45/34); repeat with AM labs given Rocephin and azithromycin p.o. in ED; transition to Zosyn 4.5mg IV Q8h, azithromycin 500mg IV, and Linezolid 600mg Iv Q12h MRSA swab ordered droplet precautions Robitussin DM and lozenges as needed Tylenol as needed blood cultures and sputum cultures ordered oxygen as needed for O2 less than 94%, temp to titrate as tolerated incentive spirometry wheezing on exam, tachypnea, hypoxia - SoluMedrol 125mg IV on admission - continue with 40mg IV Q12h DuoNeb QID scheduled and q2h prn histoplasmosis, legionella testing, jenn level ordered monitor on tele #sepsis with multi-focal PNA and UTI lactate 1.7 procal 0.72 does meet SIRS criteria - WC 13.11 with neutrophil predominance, tachycardic with HR 99, respiratory rate 42 Sepsis fluid bolus 1363.5 - given 2L NSS in ed BNP 733, defer further IV fluids - may require diuresis if clinically continues to decline trend CBC #elevated troponin suspect 2/2 demand with sepsis and PNA/hypoxia 251.4 -> 411.4 EKG showing sinus tachycardia, no ischemic changes, rate 104 denies cp - EKG with CP prn BL LE venous Doppler ordered trend trop monitor on tele #hypomagnesemia/hypokalemia possibly 2/2 diarrhea? hold PO mag and transition PPI to famotidine stool pcr ordered mag 0.7, K+ 3.3 total of 4 bags IV mag ordered 1 bag K-rider + 40 MEQ Po KCl on admission trend mag and BMP #UTI history of recurrent UTIs growing pansensitive E. coli, 1 noted history of gram- positive cocci however no further identification/sensitivities, 1 noted history of pansensitive Acinetobacter baumannii UA cloudy, 3+ protein, positive for nitrates, trace leukocyte esterase, > 50 WBC, 11-20 RBC, 4+ bacteria sepsis as above UTI is covered Zosyn for pneumonia as above follow urine cultures and blood cultures #T2DM Controlled on semaglutide and glimepiride at home; hold Most recent A1C 7.7 on 09/10/24 hyperglycemic on admission, glucose 309 - 5U NovoLog ordered SSI with target BSG range 110-180mg/dL, CF 25, carb ratio 12 5U BID lantus pharmacy glycemic consult with IV steroids #weakness 2/2 above May require PT/OT evals prior to discharge, defer on admission given patient's respiratory status fall and aspiration precautions Chronic stable diagnoses: GERDcontinuing PPI to famotidine twice daily hypothyroidismcontinue levothyroxine Hypertensioncontinue arb HLDcontinue rosuvastatin VTE ppx: SCDs Diet: t2dm Dispo: PCU Admission and Anticipated Discharge Date Admission Date: 10/16/24 History of Present Illness Chief Complaint: sore throat Primary Care Provider: Nj Bashir DO Patient is a 89 yo female the past medical history of type II DM, hypertension, cystitis, urinary incontinence, frequent UTIs, hypothyroidism, HLD. Patient presented to the ED for sore throat, cough, and weakness. patient was found to have multifocal pneumonia, hypoxic at 87% on room air, meeting SIRS criteria, and a UTI. Patient appears ill and slightly confused upon examination for admission. She is being admitted to PCU for IV antibiotics. Patient seen at bedside. She is alert and oriented however slightly confused. she stated that she has felt sick for couple days and specifically more weak today. She has a sore throat, cough with yellow sputum production, rhinorrhea, increase in urinary urgency and frequency. She states she also had diarrhea couple weeks ago. She denies any chest pain, shortness of breath, dizziness/lightheadedness, abdominal pain, vomiting. She stated she does not use nicotine products or drink alcohol. She lives at home alone and her daughter, son, and neighbors checking on her frequently. She did take her morning medications but is due for her evening medications, glucose 309 on admission. She denies any sick contacts. She wishes to be full code. She does not use oxygen at baseline. She stated her appetite has been slightly decreased and she has had poor p.o. intake today. Allergies Allergy/AdvReac Type Severity Reaction Status Date / Time sulfamethoxazole Allergy Intermediate Hives Verified 10/15/24 21:51 [From Bactrim] trimethoprim [From Bactrim] Allergy Intermediate Hives Verified 10/15/24 21:51 metformin AdvReac Intermediate diarrhea Verified 10/15/24 21:51 Home Medications Medication Instructions Recorded Confirmed Type dpfkdikl-wvy-mcxqe acid 0.4 1 tab PO QAM 02/07/21 10/15/24 History mg-lycopene 300 mcg-lutein 250 mcg tablet (Centrum Silver) diaper,brief,adult,disposable #104 ea 11/09/21 05/30/24 Rx (Depend Underwear For Women Large) flash glucose scanning reader #1 ea 03/02/23 05/30/24 Rx (FreeStyle Best 2 [place]) flash glucose sensor (FreeStyle #1 ea 03/02/23 05/30/24 Rx Best 2 Sensor kit) blood-glucose meter (Accu-Chek #1 ea 03/10/23 05/30/24 Rx Misty Plus Meter) glimepiride 4 mg tablet 4 mg PO BID #180 tabs 01/09/24 10/15/24 Rx semaglutide 7 mg tablet 7 mg PO QAM 02/02/24 10/15/24 History walker (Ultra-Light Rollator misc) #1 ea 02/15/24 05/30/24 Rx magnesium chloride 64 mg 64 mg PO BID #180 tabs 05/30/24 10/15/24 Rx (magnesium chloride) tablet,delayed release (Mag 64) levothyroxine 50 mcg tablet 50 mcg PO QAM #90 tabs 08/06/24 10/15/24 Rx omeprazole 40 mg capsule,delayed 40 mg PO BID #180 caps 08/09/24 10/15/24 Rx release blood sugar diagnostic (Accu-Chek #100 ea 08/15/24 Rx Guide test strips) lancets (Accu-Chek Softclix #100 ea 08/26/24 Rx Lancets) olmesartan 5 mg tablet 5 mg PO QAM #90 tabs 10/11/24 10/15/24 Rx rosuvastatin 5 mg tablet 5 mg PO QPM 10/15/24 10/15/24 History Past Med/Surg History Problem List (Updated 10/16/24 @ 01:04 by Kaitlynn Capps PA-C) Hyperglycemia due to type 2 diabetes mellitus Urinary tract infection Hypokalemia Elevated troponin Sepsis Respiratory alkalosis Acute respiratory failure Multifocal pneumonia Hypomagnesemia (Acute) Non-ST elevation [place] (NSTEMI) (Acute) Pneumonia involving right lung (Acute) Hyperglycemia (Acute) Acute hypokalemia (Acute) Leukocytosis (Acute) Hypoxia (Acute) Acute UTI (urinary tract infection) (Acute) Generalized weakness (Acute) AMS (altered mental status) (Acute) HTN (hypertension) Effusion of knee joint, left (Acute) Osteoarthritis of left knee (Acute) Weakness (Acute) Diabetes mellitus with microalbuminuria Uterine prolapse (Acute) Hypercholesteremia (Chronic) Hypothyroidism (Chronic) Lymphadenopathy of head and neck Urinary symptom or sign Hematuria Microscopic hematuria Recurrent UTI (urinary tract infection) Incomplete emptying of bladder Chronic cystitis Cystocele Urinary incontinence 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 Medical History Cholelithiases (05/17/13) Surgical History History of vaginal surgery H/O vaginal sling procedure History of surgery on arm History of hysterectomy vaginal History of laparoscopic cholecystectomy History of cataract surgery History of colonoscopy Family History Mother Asthma Diabetes Father Diabetes Sister Diabetes Dementia Brother Cancer Myocardial infarction Other Family history of diabetes mellitus Family history of hypertension Denies family history of Ovarian cancer Prostate cancer Coronary heart disease Breast cancer Colorectal cancer Stroke Social History (Updated 05/30/24 @ 10:16 by ALFRED Rivera) Smoking Status: Never smoker Tobacco Type: Cigarettes Age Started Using Tobacco: 20; Age Quit Using Tobacco: 21; packs per day: 0; Second Hand Exposure: No; Do You Dip or Chew Tobacco: No; Hx Alcohol Use: Yes Hx Substance Use: No Preferred Language: Congolese Communication Ability: Impaired Visual Impairment: No Limitations Hearing Ability: Normal Assembler Wire Mesh Gate Required: No Beliefs That Will Affect Care: None marital status: / Current Living Situation: Alone current occupational status: disabled Feels Safe at Home: Yes Safety Concerns: Feels Safe At This Time Childhood Exposure to Second-Hand Smoke: No Diet: regular caffeine: Yes during the past year weight has: remained stable Dental Care, Regularly: No Physical Activity Frequency: Does not Exercise Seatbelt Use: always Sunscreen Use: No Assistive Devices: Cane and Walker Review of Systems Review of Systems: see HPI Physical Exam Physical Exam: The patient is awake, alert and oriented 3, mildly confused, ill-appearing. HEENT- EOMI, mucous membranes dry. Hearing grossly intact. Heart-normal S1 and S2. No murmurs, rubs or gallops. Lungs-diffuse wheezing bilaterally, labored breathing. NC transitioned to oxy. Abdomen-normal bowel sounds and soft. No ascites noted. Non-tender. Extremities- no clubbing, cyanosis, or edema. Rheumatologic-normal range of motion. Psychiatric-normal affect. Results & Data Results & Data Vital Signs (Past 12 Hours) Vital Signs Temp Pulse Resp BP Pulse Ox O2 Del Method O2 Flow Rate 10/15/24 21:57 99 H 42 H 148/91 H 98 Nasal Cannula 2 10/15/24 21:01 30 H 148/72 H 87 L Room Air 10/15/24 19:26 108 H 10/15/24 18:39 36.9 C 102 H 20 139/72 94 Room Air Laboratory Results Reviewed CBC, VBG, CMP, Pro-Uche, bio fire, UA, troponin, mag, lactate, bnp Diagnostic Findings reviewed cxr and chest ct Medications Administered ed - 2 bags IV mag, 1 bag K rider, 2L NSS bolus, Rocephin 2G IV, azithromycin 500 Mg p.o. Admission2 additional bags IV mag, linezolid 600 Mg IV, Solu-Medrol 125 Mg IV, DuoNeb, Tessalon Perles, Robitussin DM, NovoLog 5U ECG Additional Comments: sinus tachycardia, no ischemic changes Rate 104 QTc 476 Code Status & VTE Plan Code Status full code VTE Prophylaxis Plan VTE Prophylaxis will be ordered: Yes Supervising Physician Co-Signing Physician Notes Attending addendum: I have physically seen this patient, have supervised the ILAN's activities, and agree with the H&P unless as otherwise noted. Assessment and Plan: The patient is a 89-year-old female with past medical history including diabetes mellitus type 2, hypertension, cystitis, urinary incontinence, frequent urine tract infections, hypothyroidism, hyperlipidemia, knee osteoarthritis, and generalized weakness. She presents to the emergency department with a few days of sore throat, moist cough, generalized weakness. Workup in the emergency department included significantly abnormal chest x-ray, right greater than left suggestive of multifocal pneumonia, hypoxia with oxygenation 87% on room air, meet SIRS criteria, and also noted to have urine tract infection. She is referred to the [facility] service for evaluation and treatment for multifocal pneumonia, and urinary tract infection. #Multifocal pneumonia/acute respiratory hypoxia- Chest x-ray and CT suggestive of multifocal pneumonia Initially placed on ceftriaxone and azithromycin from the ED Placed on Zosyn 4.5 g IV every 8 hours, azithromycin 5 mg IV, and linezolid 60 mg IV every 12 hours. Order MRSA swab now, if negative, can stop linezolid Robitussin DM and lozenges as needed Follow sputum and blood culture with sensitivities noted Incentive spirometry DuoNeb 4 times daily, and every 2 hours as needed Check histoplasmosis, Legionella and JENN level Sepsis: Associated with multifocal pneumonia and urinary tract action Treatment as above Follow-up monitoring on telemetry Elevated troponin- Initial troponin 251.4, with follow-up 411.4 EKG and monitor with sinus tachycardia Workup for ischemia, but may just be rate related Ordering bilateral lower extremity venous Dopplers No suggestion of PE Electrolyte disturbances- Magnesium 0.7. Give mag sulfate 4 g IV, recheck laboratories in a.m. Hypokalemia potassium 3.3 giving 40 mill equivalents p.o., and 1K rider Recheck laboratories in a.m. Urinary tract infection Follow urine culture sensitivity Recent leg grew pansensitive E. coli Antibiotics as above Remaining orders and notations as noted PG Care Time/CCT Total # of Minutes Spent Total Time Spent with Patient: Total time spent is greater than 50% in coordination of care (as documented) at patient's floor/unit and/or counseling patient: Coding Level of Care Code 05463 INT INP/OBS CARE 3/75MIN Diagnoses Multifocal pneumonia J18.9 Acute respiratory failure J96.00 Respiratory alkalosis E87.3 Sepsis A41.9 Elevated troponin R79.89 Hypomagnesemia E83.42 Hypokalemia E87.6 Urinary tract infection N39.0 Hyperglycemia due to type 2 diabetes mellitus E11.65 Generalized weakness R53.1
[2024-10-15] MEDS ORDERED: POTASSIUM CHLORIDE CRTAB 20 MEQ TABCR PO STA (23:28)
--- NOTE | 2024-10-15 23:29 | XRay Report ---
Exam(s): XR CXR 1 VIEW EXAM: XR Chest, 1 View CLINICAL HISTORY: Reason for exam: shortness of breath. TECHNIQUE: Frontal view of the chest. COMPARISON: 02/02/2024. FINDINGS: Lungs: There are patchy bilateral infiltrates more pronounced on the right.. Pleural space: No pleural effusion is seen. No pneumothorax. Heart: Heart is top normal in size.. Mediastinum: There is mild uncoiling of thoracic aorta.. Bones/joints: Unremarkable. No acute fracture. IMPRESSION: There are patchy bilateral infiltrates Electronically signed by: Aaron Hurtado MD 10/15/24 23:28 PM
[2024-10-15 23:49] LABS: Troponin I High Sensitivity 251.4 pg/ml (0-14)
[2024-10-16] MEDS ORDERED: methylPREDNISolone 125 MG in SYRINGE 0 ML IV ONE (00:12)
[2024-10-16] MEDS ORDERED: ALBUT/IPRATROP 3MG/0.5MG NEB 3 ML VIAL NEB PRN (00:19)
--- NOTE | 2024-10-16 00:22 | CT Scan Report ---
Exam(s): CT CHEST Without Contrast EXAM: CT Chest Without Intravenous Contrast CLINICAL HISTORY: Reason for exam: PNA, hypoxia. TECHNIQUE: Axial computed tomography images of the chest without intravenous contrast. Automated exposure control was utilized for the study. A dose lowering technique was utilized adhering to the principles of ALARA. COMPARISON: No relevant prior studies available. FINDINGS: Motion artifact degrades image quality limiting the exam. Lungs: There are bilateral nodular infiltrates more pronounced on the right.. Pleural space: No pneumothorax. No significant effusion. Heart: The heart contains coronary artery calcifications.. Bones/joints: There are degenerative changes in the spine.. Soft tissues: Unremarkable. Vasculature: There are atherosclerotic changes. No thoracic aortic aneurysm. Lymph nodes: There are enlarged mediastinal lymph nodes. Cannot exclude hilar adenopathy.. Additional: There is a small hiatal hernia. IMPRESSION: There are bilateral nodular infiltrates more pronounced on the right.. There are enlarged mediastinal lymph nodes. Electronically signed by: Aaron Hurtado MD 10/16/24 00:21 AM
[2024-10-16] MEDS: BENZONATATE 100 MG CAPSULE PO ONE (00:33)
[2024-10-16] MEDS: COUGH DROP (SUGAR FREE) LOZ 24 LOZ/1 BOX BUCCAL PRN (00:33)
[2024-10-16] MEDS: INSULIN ASPART PER UNIT CHARGE SC STA ×3 (00:33→05:17)
[2024-10-16] MEDS: MAGNESIUM SULFATE / D5W 1 GM/100 ML BAG IV SCH ×2 (00:33→03:28)
[2024-10-16] MEDS: methylPREDNISolone 125 MG/2 ML VIAL IV STA (00:44)
[2024-10-16] MEDS ORDERED: GLUCAGON FOR INJ 1 MG VIAL SQ PRN (01:09)
[2024-10-16] MEDS ORDERED: GLUCOSE 10 TAB/TUBE PO PRN (01:09)
[2024-10-16] MEDS ORDERED: DEXTROSE 50% 50 ML SYRINGE IV PRN (01:09)
[2024-10-16] MEDS ORDERED: CARBOHYDRATES FOR HYPOGLYCEMIA PO PRN (01:09)
[2024-10-16] MEDS ORDERED: GLUCOSE 40% GEL 15 GM TUBE PO PRN (01:09)
[2024-10-16] MEDS ORDERED: ONDANSETRON INJ 2 MG/ML 2 ML VIAL IV PRN (01:09)
[2024-10-16] MEDS ORDERED: PHARMACY GLYCEMIC MGMT CONSULT PRN (01:09)
[2024-10-16] MEDS: ALBUT/IPRATROP 3MG/0.5MG NEB 3 ML VIAL NEB STA (01:30)
[2024-10-16] MEDS: guaiFENesin/DEXTROM SYRUP 200MG/20MG 10ML UDC PO STA (01:31)
[2024-10-16] MEDS: LINEZOLID 600 MG/300 ML BAG IV STA (01:31)
[2024-10-16] MEDS: PIPERACILLIN/TAZOBACTAM 4.5 GM/100 ML BAG IV SCH (02:40)
[2024-10-16] MEDS: INSULIN ASPART PER UNIT CHARGE SC SCH (03:46)
[2024-10-16] MEDS: POTASSIUM CHLORIDE CRTAB 20 MEQ TABCR PO STA (04:54)
[2024-10-16] MEDS: LANTUS PER UNIT CHARGE SQ STA (05:17)
[2024-10-16] MEDS: LEVOTHYROXINE SODIUM 50 MCG TABLET PO SCH (05:19)
--- NOTE | 2024-10-16 05:40 | Ultrasound Report ---
EXAM: US venous doppler LE BI CLINICAL HISTORY: Elevated troponin, tachycardia. TECHNIQUE: Ultrasound examination of bilateral lower extremity veins was performed in real time and duplex. One or more of the following were performed: spectral analysis, resistive index, waveform analysis, and pulsed Doppler. COMPARISON: 08/16/2021, venous doppler LE RT, and 02/07/2021 US venous doppler LE. FINDINGS: Normal phasic, non-pulsatile and spontaneous flow is noted in bilateral common femoral, superficial femoral, popliteal and posterior tibial, anterior tibial and peroneal veins. Visualized veins of both lower extremities demonstrate normal compressibility. No sonographic evidence of acute deep vein thrombosis (DVT) is detected in the visualized veins of both lower extremities. Compression and Augmentation: All evaluated veins compress fully with applied transducer pressure. Augmentation of venous flow is noted with distal compression. Additional Findings: No evidence of intraluminal thrombus. IMPRESSION: 1. No sonographic evidence of acute DVT was detected in the bilateral common femoral, superficial femoral, popliteal, anterior and posterior tibial, and peroneal veins at the time of examination. 2. No significant interval changes seen. Disclaimer: DVT could be missed early in the disease when clot burden is minimal. For patients with moderate and high pretest probability of DVT and negative ultrasound, the [employer] clinical guidelines recommend testing with a D-dimer assay or repeat ultrasound in 5-7 days. If symptoms worsen, the Society of radiologists in ultrasound recommends repeating ultrasound even earlier. Electronically signed by Braden Bashir 10-16-2024 05:40 AM
[2024-10-16 06:12] LABS: Base Excess VBG 2.6 mEq/L; HCO3 VBG 27 mmol/L; Oxygen Saturation VBG 78.7 %; PCO2 VBG 41 mmHg (38-50); PO2 VBG 47 mmHg; pH VBG 7.43 (7.36-7.41)
[2024-10-16 06:18] LABS: Hematocrit (blood only) 31.7 % (37.0-47.0); Hemoglobin 10.8 g/dl (12.0-16.0); Mean Corpuscular Hemoglobin 31.7 pg (25.0-34.0); Mean Corpuscular Hgb Conc 34.1 g/dL (32.0-36.0); Mean Platelet Volume 9.6 fL (9.4-12.4); Platelet Count 222 K/uL (130-400); RDW Coefficient of Variation 13.1 % (11.5-14.5); RDW Standard Deviation 44.4 fL (36.4-46.3); Red Blood Count 3.41 M/uL (4.20-5.40); White Blood Count 12.29 K/ul (4.8-10.8)
[2024-10-16 06:37] LABS: BUN Creatinine Ratio 14.9 (10-20); Calcium 7.1 mg/dl (8.6-10.3); Creatinine Clr Calc Pharmacy 37.7 ml/min; Potassium 3.1 mmol/L (3.5-5.1)
[2024-10-16 06:49] LABS: Basophils # (auto) 0.04 K/uL (0.00-0.20); Basophils % (auto) 0.3 %; Eosinophils # (auto) 0.04 K/uL (0.00-0.50); Eosinophils % (auto) 0.3 %; Immature Granulocytes # (auto) 0.06 K/uL (0.01-0.20); Immature Granulocytes % (auto) 0.5 %; Lymphocytes # (auto) 0.46 K/uL (1.20-3.40); Lymphocytes % (auto) 3.7 %; Monocytes % (auto) 2.4 %; Neutrophils # (auto) 11.39 K/uL (1.40-6.50); Neutrophils % (auto) 92.8 %; RBC Morphology Unremarkable
[2024-10-16] MEDS: ALBUT/IPRATROP 3MG/0.5MG NEB 3 ML VIAL NEB SCH (07:31)
[2024-10-16] MEDS: FAMOTIDINE 10 MG TABLET PO SCH (08:42)
[2024-10-16] MEDS: LOSARTAN POTASSIUM 25 MG TAB PO SCH (08:42)
[2024-10-16] MEDS: LANTUS PER UNIT CHARGE SC SCH ×2 (08:43→21:30)
[2024-10-16] MEDS: POTASSIUM CHLORIDE / WTR 10 MEQ/100 ML PLCT IV SCH (08:53)
[2024-10-16] MEDS ORDERED: PANTOprazole 40 MG/10 ML SYR IV SCH (09:00)
--- NOTE | 2024-10-16 10:39 | Electrocardiogram Report ---
Test Reason : Blood Pressure : */* mmHG Vent. Rate : 99 BPM Atrial Rate : 99 BPM P-R Int : 170 ms QRS Dur : 64 ms QT Int : 372 ms P-R-T Axes : 45 46 61 degrees QTcB Int : 477 ms Normal sinus rhythm with sinus arrhythmia Normal ECG When compared with ECG of 02-Feb-2024 10:58, No significant change was found Confirmed by Darryl Joseph ([id number]) on 10/16/2024 10:39:08 AM Referred By: REFERRED SELF Confirmed By: Darryl Joseph
--- NOTE | 2024-10-16 10:40 | Electrocardiogram Report ---
Test Reason : Blood Pressure : */* mmHG Vent. Rate : 104 BPM Atrial Rate : 104 BPM P-R Int : 164 ms QRS Dur : 62 ms QT Int : 362 ms P-R-T Axes : 51 38 62 degrees QTcB Int : 476 ms Sinus tachycardia Nonspecific ST abnormality Abnormal ECG When compared with ECG of 02-Feb-2024 10:58, No significant change was found Confirmed by Darryl Joseph ([id number]) on 10/16/2024 10:40:15 AM Referred By: REFERRED SELF Confirmed By: Darryl Joseph
--- NOTE | 2024-10-16 11:59 | Hospitalist Progress Note ---
Date of Service October 16, 2024 Assessment & Plan (1) Multifocal pneumonia: (2) Acute respiratory failure: (3) Sepsis: (4) Elevated troponin: (5) Hypomagnesemia: (6) Hypokalemia: (7) Urinary tract infection: (8) Hyperglycemia due to type 2 diabetes mellitus: Plan 89yo female with type II DM, hypertension, recurrent UTIs, urinary incontinence, hypothyroidism, hyperlipidemia. Patient presented to the ED for sore throat, cough, and weakness. Admission imaging with multifocal pneumonia. Was hypoxic at 87% on room air at time of admission. Following admission, patient's troponin returned at 411.4 and magnesium 0.7. Her respiratory status then worsened with significant tachypnea. Was given 125mg IV Solu-Medrol along with duonebs and oxy mask. #multi-focal pneumonia - * likely community-acquired * no risk factors for gram negative etiology * MRSA swab negative * since likely CAP switch back to once daily IV rocephin and for atypical coverage change zithromax to doxycycline 100mg BID * follow blood/sputum cx's * biofire noted to be negative * stop zosyn; stop zyvox; stop zithromax * she is moving air nicely and there was no wheezing on exam today; will stop steroids but reasonable to cont nebs for now * cont incentive spirometer & flutter valve * f/u on legionella urine ag * doubt fungal pneumonia; doubt sarcoid - but f/u on labs for such #sepsis - * 2nd to pneumonia +/- UTI * follow blood & urine cx's #elevated troponin - * likely 2nd to myocardial demand ischemia in setting of sepsis/pneumonia/UTI * no evidence of ACS * in light of troponin elevation & murmur will obtain echo while here #acute metabolic encephalopathy - * 2nd to pneumonia and UTI * supportive care * can't rule out toxic effects from high-dose steroids #hypomagnesemia/hypokalemia- * low mag replaced and now normal * low K - give additional IV/PO replacement and follow serial labs * has had severely low mag levels in the past - due to chronic PPI usage? other? #UTI - * u/a suspicious for UTI * rocephin should suffice * all prior UTIs 2nd to pansensitive e.coli * prior CT a/p without urinary tract anomalies, stones, etc * consider methenamine prophylaxis in the future given how frequent the UTIs are #T2DM - * Controlled on semaglutide and glimepiride at home; both agents on hold * recent A1C 7.7 on 09/10/24 * pharmacy glycemic consult for management appreciated * cont basal-bolus insulins Chronic stable diagnoses: GERDPPI placed on hold due to severe hypomagnesemia; changed to famotidine twice daily hypothyroidismcontinue levothyroxine; TSH 4.2 in Aug 2024 Hypertension cont losartan Hyperlipidemiacontinue rosuvastatin DVT proph - add heparin or lovenox tomorrow will need PT/OT while here daughter updated by phone this evening, 10/17 Admission and Anticipated Discharge Date Admission Date: October 15, 2024 Subjective tele overnight wnl patient was sitting in the chair finishing a neb treatment upon arrival she was restless, constantly shifting in the chair she was talking fast, changing the topic of conversation frequently she was looking around the room constantly with poor eye contact reports having been sick with a cold about 1-2 weeks ago continues with cough but improved from yesterday eating had been poor but improved today staff state she is able to ambulate to bathroom with assistance is impulsive Review of Systems Review of Systems: gen - fatigued cv - no chest pain pulm - no dyspnea or YUNG; mild cough GI - no abd pain or N/V Physical Exam Physical Exam: gen - sitting in chair, restless - but no distress neck - no JVD mouth - MMM heart - 2/6 systolic murmur RUSB, RRR, s1 s2 lungs - mild rales b/l bases, otherwise no wheezing, no increased work of breathing abd - soft NT ND BS+ ext - pulses b/l feet 2+; no edema psych - mild confusion noted Results & Data Results & Data Vital Signs (Past 12 Hours) Vital Signs Temp Pulse Pulse Resp BP BP Pulse Ox 10/16/24 11:34 36.7 C 87 17 119/58 L 99 10/16/24 10:59 90 18 91 10/16/24 07:31 91 H 18 95 10/16/24 07:23 10/16/24 07:07 36.6 C 89 20 169/71 H 91 10/16/24 03:56 37.2 C 97 H 17 133/62 90 10/16/24 02:12 108 H 10/16/24 01:32 101 H 18 91 03/26/25 01:26 37.4 C 17 88 L 10/16/24 01:12 10/16/24 01:11 161/76 H 10/16/24 00:27 111 H 28 H 152/74 H 93 10/16/24 00:24 36.8 C 105 H 19 164/75 H 95 O2 Del Method O2 Flow Rate 10/16/24 11:34 Room Air 10/16/24 10:59 Room Air 10/16/24 07:31 Nasal Cannula 3 10/16/24 07:23 Nasal Cannula 3 10/16/24 07:07 Nasal Cannula 2 10/16/24 03:56 Nasal Cannula 2.0 10/16/24 02:12 10/16/24 01:32 Nasal Cannula 2 10/16/24 01:26 Nasal Cannula 2.0 10/16/24 01:12 Nasal Cannula 2 10/16/24 01:11 10/16/24 00:27 10/16/24 00:24 Nasal Cannula 2 Laboratory Results Laboratory Results - last 24 hr 10/16/24 10/16/24 10/16/24 03:41 03:50 04:57 WBC RBC Hgb Hct MCV MCH MCHC RDW Std Deviation RDW Coeff of Barry Plt Count MPV Immature Gran % (Auto) Neut % (Auto) Lymph % (Auto) [place] % (Auto) Eos % (Auto) Baso % (Auto) Neut # (Auto) Lymph # (Auto) [place] # (Auto) Eos # (Auto) Baso # (Auto) Immature Gran # (Auto) RBC Morphology VBG pH VBG pCO2 VBG pO2 VBG HCO3 VBG O2 Saturation VBG Base Excess Sodium Potassium Chloride Carbon Dioxide Anion Gap BUN Creatinine Est Cr Clr Drug Dosing eGFR BUN/Creatinine Ratio Glucose POC Glucose 333 H* 343 H* Calcium Magnesium Troponin I High Sens Nasal Screen MRSA (PCR) Negative 10/16/24 10/16/24 10/16/24 05:55 07:09 11:25 WBC 12.29 H RBC 3.41 L Hgb 10.8 L Hct 31.7 L MCV 93.0 MCH 31.7 MCHC 34.1 RDW Std Deviation 44.4 RDW Coeff of Barry 13.1 Plt Count 222 MPV 9.6 Immature Gran % (Auto) 0.5 Neut % (Auto) 92.8 Lymph % (Auto) 3.7 [place] % (Auto) 2.4 Eos % (Auto) 0.3 Baso % (Auto) 0.3 Neut # (Auto) 11.39 H Lymph # (Auto) 0.46 L [place] # (Auto) 0.30 Eos # (Auto) 0.04 Baso # (Auto) 0.04 Immature Gran # (Auto) 0.06 RBC Morphology Unremarkable VBG pH 7.43 H VBG pCO2 41 VBG pO2 47 VBG HCO3 27 VBG O2 Saturation 78.7 VBG Base Excess 2.6 Sodium 129 L Potassium 3.1 L Chloride 91 L Carbon Dioxide 28 Anion Gap 10 BUN 14 Creatinine 0.94 Est Cr Clr Drug Dosing 37.7 eGFR 58.73 BUN/Creatinine Ratio 14.9 Glucose 354 H* POC Glucose 344 H* 368 H* Calcium 7.1 L Magnesium 2.0 Troponin I High Sens 476.5 H* Nasal Screen MRSA (PCR) 10/16/24 10/16/24 10/16/24 12:51 16:07 18:33 WBC RBC Hgb Hct MCV MCH MCHC RDW Std Deviation RDW Coeff of Barry Plt Count MPV Immature Gran % (Auto) Neut % (Auto) Lymph % (Auto) [place] % (Auto) Eos % (Auto) Baso % (Auto) Neut # (Auto) Lymph # (Auto) [place] # (Auto) Eos # (Auto) Baso # (Auto) Immature Gran # (Auto) RBC Morphology VBG pH VBG pCO2 VBG pO2 VBG HCO3 VBG O2 Saturation VBG Base Excess Sodium Potassium Chloride Carbon Dioxide Anion Gap BUN Creatinine Est Cr Clr Drug Dosing eGFR BUN/Creatinine Ratio Glucose POC Glucose 311 H* Calcium Magnesium Troponin I High Sens 314.2 H* D 252.1 H* Nasal Screen MRSA (PCR) PG Care Time/CCT Total # of Minutes Spent Total Time Spent with Patient: Total time spent is greater than 50% in coordination of care (as documented) at patient's floor/unit and/or counseling patient: Coding Level of Care Code 40741 SUB INP/OBS CARE 3/50MIN Diagnoses Multifocal pneumonia J18.9 Acute respiratory failure J96.00 Sepsis A41.9 Elevated troponin R79.89 Hypomagnesemia E83.42 Hypokalemia E87.6 Urinary tract infection N39.0 Hyperglycemia due to type 2 diabetes mellitus E11.65
[2024-10-16] MEDS ORDERED: methylPREDNISolone 40 MG in SYRINGE 0 ML IV SCH (12:00)
[2024-10-16] MEDS: INSULIN HUMAN REGULAR PER UNIT 7 UNITS in SYRINGE 6.93 ML IV ONE (12:32)
[2024-10-16] MEDS: ACETAMINOPHEN 325 MG TAB PO PRN (12:42)
[2024-10-16] MEDS: guaiFENesin 600 MG TABCR PO SCH (12:43)
[2024-10-16] MEDS ORDERED: LINEZOLID 600 MG/300 ML BAG IV SCH (13:00)
--- NOTE | 2024-10-16 14:11 | Pharmacy Report ---
Pharmacy Glycemic Short Note 2 - Date of Service October 16, 2024 - Glycemic Short BSG Results (Last 24 hours): 10/15/24 10/15/24 10/16/24 19:02 23:05 03:41 Glucose 329 H* POC Glucose 308 H* 333 H* 10/16/24 10/16/24 10/16/24 04:57 05:55 07:09 Glucose 354 H* POC Glucose 343 H* 344 H* 10/16/24 11:25 Glucose POC Glucose 368 H* OUTPATIENT ANTIDIABETIC REGIMEN: * glimeperide 4mg PO BID * semaglutide 7mg PO QAM * HbA1c 7.7% (09/10/24) ASSESSMENT: * Debra is an 89 year old female admitted with a sore throat and cough with a history of type 2 diabetes mellitus. Pharmacy has been consulted to assist with glycemic management while inpatient. * BSG upon admission elevated, receiving steroids for wheezing along with mutli- focal PNA worsening hyperglycemia. Basal insulin initiated this AM at ~0.3 units/kg, will continue on a scale this evening based on BSG up to same dose. * BSGs persistently above 300 at lunchtime, IV regular bolus given with lunchtime to augment SQ. PLAN FOR INPATIENT GLYCEMIC CONTROL: * Hold outpatient oral diabetes medications * Basal insulin * Lantus 25 units SQ daily * Lantus 0-25 units SQ HS based on BSG (see eMAR for additional details) * Bolus insulin * NovoLog per scale ACHS or Q6hrs while NPO * Goal Range: Low 110 mg/dL - High 140 mg/dL * Correction Factor: 30 mg/dL/unit * Nutritional / Prandial insulin per carb ratio of 1 unit per 6 grams CHO consumed
[2024-10-16] MEDS: guaiFENesin/DEXTROM SYRUP 100MG/10MG 5ML UDC PO PRN (19:30)
[2024-10-16] MEDS: cefTRIAXone SODIUM 2,000 MG/50 ML BAG IV SCH (21:04)
[2024-10-16] MEDS: ROSUVASTATIN CALCIUM 5 MG TAB PO SCH (21:04)
[2024-10-16] MEDS: DOXYCYCLINE HYCLATE 100 MG CAP PO SCH (21:05)
[2024-10-16] MEDS ORDERED: AZITHROMYCIN 500 MG/255 ML BAG IV SCH (22:00)
[2024-10-17 00:46] LABS: Calcium 7.4 mg/dl (8.6-10.3); Creatinine Clr Calc Pharmacy 24.9 ml/min; Potassium 3.4 mmol/L (3.5-5.1)
[2024-10-17] MEDS: INSULIN ASPART PER UNIT CHARGE SC SCH (00:59)
[2024-10-17] MEDS: MELATONIN 3 MG TAB PO PRN (01:01)
[2024-10-17] MEDS: guaiFENesin/CODEINE 100MG/10MG 5ML UDC PO PRN (01:56)
[2024-10-17 06:46] LABS: Basophils # (auto) 0.03 K/uL (0.00-0.20); Basophils % (auto) 0.2 %; Hematocrit (blood only) 29.5 % (37.0-47.0); Hemoglobin 10.1 g/dl (12.0-16.0); Immature Granulocytes # (auto) 0.09 K/uL (0.01-0.20); Immature Granulocytes % (auto) 0.5 %; Lymphocytes % (auto) 7.3 %; Mean Corpuscular Hemoglobin 31.6 pg (25.0-34.0); Mean Corpuscular Hgb Conc 34.2 g/dL (32.0-36.0); Mean Corpuscular Volume 92.2 fL (80.0-100.0); Mean Platelet Volume 9.6 fL (9.4-12.4); Monocytes # (auto) 0.83 K/uL (0.11-0.59); Monocytes % (auto) 4.6 %; Neutrophils # (auto) 15.63 K/uL (1.40-6.50); Neutrophils % (auto) 87.4 %; Platelet Count 250 K/uL (130-400); RDW Coefficient of Variation 13.1 % (11.5-14.5); RDW Standard Deviation 44.4 fL (36.4-46.3); White Blood Count 17.88 K/ul (4.8-10.8)
[2024-10-17 07:08] LABS: BUN Creatinine Ratio 21.1 (10-20); Calcium 7.7 mg/dl (8.6-10.3); Creatinine Clr Calc Pharmacy 26.7 ml/min; Magnesium 1.8 mg/dl (1.7-2.4); Potassium 3.7 mmol/L (3.5-5.1)
[2024-10-17] MEDS: LANTUS PER UNIT CHARGE SC SCH ×2 (08:32→20:58)
[2024-10-17] MEDS ORDERED: LANTUS PER UNIT CHARGE SC SCH (09:00)
[2024-10-17] MEDS: LOPERAMIDE HCL 2 MG CAP PO PRN (09:17)
--- NOTE | 2024-10-17 11:28 | XCELERA ---
[id number] [id number]
--- NOTE | 2024-10-17 12:18 | Hospitalist Progress Note ---
Date of Service October 17, 2024 Assessment & Plan (1) Multifocal pneumonia: (2) Acute respiratory failure: (3) Sepsis: (4) Elevated troponin: (5) Hypomagnesemia: (6) Hypokalemia: (7) Urinary tract infection: (8) Hyperglycemia due to type 2 diabetes mellitus: Plan 89yo female with type II DM, hypertension, recurrent UTIs, urinary incontinence, hypothyroidism, hyperlipidemia. Patient presented to the ED for sore throat, cough, and weakness. Admission imaging with multifocal pneumonia. Was hypoxic at 87% on room air at time of admission. Following admission, patient's troponin returned at 411.4 and magnesium 0.7. Her respiratory status then worsened with significant tachypnea. Was given 125mg IV Solu-Medrol along with duonebs and oxy mask. #multi-focal pneumonia - * stable in room air * legionella urine Ag returned POSITIVE * MRSA swab negative * currently on IV rocephin & doxycycline; change doxy back to zithromax as latter will cover Legionella more robustly * of note - patient did receive 1 dose of azithromycin previously on 10/15 * blood/sputum cx's remain negative * Respiratory biofire noted to be negative * cont incentive spirometer & flutter valve * add tessalon 200mg TID scheduled for severe cough * doubt fungal pneumonia; doubt sarcoid - but f/u on labs for such #sepsis - * 2nd to pneumonia + UTI * rising wbc count - suspect due to steroids given hospital day #1 #elevated troponin - * likely 2nd to myocardial demand ischemia in setting of sepsis/pneumonia/UTI * no evidence of ACS * in light of troponin elevation & murmur obtained echo -- normal LV function, normal LV wall motion #acute metabolic encephalopathy - * 2nd to pneumonia and UTI * can't rule out toxic effects from high-dose steroids * severe sundowning overnight last pm; no sleep in 2+ days * start zyprexa 2.5mg PO HS tonight #hypomagnesemia/hypokalemia- * low mag replaced and now normal * low K replaced & now normal * has had severely low mag levels in the past - due to chronic PPI usage? other? #UTI - * 2nd e.coli * rocephin should suffice; narrow when able * all prior UTIs 2nd to pansensitive e.coli * prior CT a/p without urinary tract anomalies, stones, etc * consider methenamine prophylaxis in the future given how frequent the UTIs are #T2DM - * Controlled on semaglutide and glimepiride at home; both agents on hold * recent A1C 7.7 on 09/10/24 * pharmacy glycemic consult for management appreciated * cont basal-bolus insulins; pharmacy adjusting such Chronic stable diagnoses: GERDPPI placed on hold due to severe hypomagnesemia; changed to famotidine twice daily hypothyroidismcontinue levothyroxine; TSH 4.2 in Aug 2024 Hypertension cont losartan Hyperlipidemiacontinue rosuvastatin DVT proph - add lovenox daily will need PT/OT while here; awaiting evals daughter updated by phone 10/17 Admission and Anticipated Discharge Date Admission Date: October 15, 2024 Subjective tele overnight again wnl pt had significant owning overnight per staff was confused, restless, and slept very little last pm during rounds she was sitting in the chair again restless like yesterday and she admitted to feeling very tired continues with cough some sputum she denies any chest tightness or chest pain denies dyspnea having diarrhea - multiple liquid stools but no N/V she asks when she might be able to go home Review of Systems Review of Systems: gen - no fevers or chills GI - no abd pain pulm - no dyspnea on exertion Physical Exam Physical Exam: gen - sitting in chair, restless, coughing at times neck - no JVD mouth - MMM heart - 2/6 systolic murmur RUSB, RRR, s1 s2 lungs - mild rales b/l bases, no wheezing, no increased work of breathing abd - soft NT ND BS+ ext - pulses b/l feet 2+; no edema psych - confused, restless Results & Data Results & Data Vital Signs (Past 12 Hours) Vital Signs Temp Pulse Pulse Resp BP Pulse Ox Pulse Ox 10/17/24 10:57 36.8 C 100 H 23 105/62 95 10/17/24 10:40 97 H 19 94 10/17/24 10:05 87 10/17/24 09:56 10/17/24 07:42 36.8 C 97 H 20 138/76 92 10/17/24 07:30 100 H 19 90 10/17/24 03:00 36.6 C 96 H 21 142/74 H 94 10/17/24 01:09 95 O2 Del Method O2 Del Method O2 Flow Rate O2 Flow Rate 10/17/24 10:57 Nasal Cannula 1 10/17/24 10:40 Nasal Cannula 2 10/17/24 10:05 10/17/24 09:56 Nasal Cannula 2 10/17/24 07:42 Room Air 10/17/24 07:30 Room Air 10/17/24 03:00 Room Air 10/17/24 01:09 Nasal Cannula 2 Laboratory Results Laboratory Results - last 24 hr 10/15/24 10/17/24 10/17/24 21:16 06:06 07:41 WBC 17.88 H RBC 3.20 L Hgb 10.1 L Hct 29.5 L MCV 92.2 MCH 31.6 MCHC 34.2 RDW Std Deviation 44.4 RDW Coeff of Barry 13.1 Plt Count 250 MPV 9.6 Immature Gran % (Auto) 0.5 Neut % (Auto) 87.4 Lymph % (Auto) 7.3 [place] % (Auto) 4.6 Eos % (Auto) 0.0 Baso % (Auto) 0.2 Neut # (Auto) 15.63 H Lymph # (Auto) 1.30 [place] # (Auto) 0.83 H Eos # (Auto) 0.00 Baso # (Auto) 0.03 Immature Gran # (Auto) 0.09 Sodium 133 L Potassium 3.7 Chloride 96 L Carbon Dioxide 30 Anion Gap 7 BUN 28 H Creatinine 1.33 H Est Cr Clr Drug Dosing 26.7 eGFR 38.72 BUN/Creatinine Ratio 21.1 H Glucose 99 POC Glucose 142 H Calcium 7.7 L Magnesium 1.8 Stl C. diff Tox B Gene Urine Legionella Ag SEE NOTE A 10/17/24 10/17/24 10/17/24 07:52 11:25 16:31 WBC RBC Hgb Hct MCV MCH MCHC RDW Std Deviation RDW Coeff of Barry Plt Count MPV Immature Gran % (Auto) Neut % (Auto) Lymph % (Auto) [place] % (Auto) Eos % (Auto) Baso % (Auto) Neut # (Auto) Lymph # (Auto) [place] # (Auto) Eos # (Auto) Baso # (Auto) Immature Gran # (Auto) Sodium Potassium Chloride Carbon Dioxide Anion Gap BUN Creatinine Est Cr Clr Drug Dosing eGFR BUN/Creatinine Ratio Glucose POC Glucose 233 H 72 Calcium Magnesium Stl C. diff Tox B Gene Negative Cdiff Gene Urine Legionella Ag PG Care Time/CCT Total # of Minutes Spent Total Time Spent with Patient: Total time spent is greater than 50% in coordination of care (as documented) at patient's floor/unit and/or counseling patient: Coding Level of Care Code 47331 SUB INP/OBS CARE 3/50MIN Diagnoses Multifocal pneumonia J18.9 Acute respiratory failure J96.00 Sepsis A41.9 Elevated troponin R79.89 Hypomagnesemia E83.42 Hypokalemia E87.6 Urinary tract infection N39.0 Hyperglycemia due to type 2 diabetes mellitus E11.65
[2024-10-17] MEDS: ADVANCED PROBIOTIC 625 MG CAPSULE PO SCH (12:22)
[2024-10-17] MEDS: BENZONATATE 100 MG CAPSULE PO SCH (13:30)
--- NOTE | 2024-10-17 14:19 | Pharmacy Report ---
Pharmacy Glycemic Short Note 2 - Date of Service October 17, 2024 - Glycemic Short BSG Results (Last 24 hours): 10/16/24 10/16/24 10/16/24 16:07 21:06 22:48 Glucose POC Glucose 311 H* 435 H* 404 H* 10/16/24 10/17/24 10/17/24 23:23 04:03 05:00 Glucose 343 H* POC Glucose 82 97 10/17/24 10/17/24 10/17/24 06:06 07:41 11:25 Glucose 99 POC Glucose 142 H 233 H OUTPATIENT ANTIDIABETIC REGIMEN: * glimeperide 4mg PO BID * semaglutide 7mg PO QAM * HbA1c 7.7% (09/10/24) ASSESSMENT: 10/17: * Debra received 133 units of insulin yesterday (50 basal, 76 bolus, and 7 IV regular bolus) * Fasting BSG this AM within goal range, slightly below goal range overnight, IV methylprednisolone discontinued yesterday afternoon, steroid effects wearing off, likely cause of dramatic drop. Will aim for basal insulin total daily dosage between a weight based stress of 2-3 given in morning and scale in evening based off of BSG. * Carbohydrate ratio tightened slightly due to elevated post-prandial BSGs 10/16: * Debra is an 89 year old female admitted with a sore throat and cough with a history of type 2 diabetes mellitus. Pharmacy has been consulted to assist with glycemic management while inpatient. * BSG upon admission elevated, receiving steroids for wheezing along with mutli- focal PNA worsening hyperglycemia. Basal insulin initiated this AM at ~0.3 units/kg, will continue on a scale this evening based on BSG up to same dose. * BSGs persistently above 300 at lunchtime, IV regular bolus given with lunchtime to augment SQ. PLAN FOR INPATIENT GLYCEMIC CONTROL: * Hold outpatient oral diabetes medications * Basal insulin * Lantus 15 units SQ daily * Lantus 0-15 units SQ HS based on BSG (see eMAR for additional details) * Bolus insulin * NovoLog per scale ACHS or Q6hrs while NPO * Goal Range: Low 110 mg/dL - High 140 mg/dL * Correction Factor: 30 mg/dL/unit * Nutritional / Prandial insulin per carb ratio of 1 unit per 5 grams CHO consumed
[2024-10-17] MEDS: ALBUT/IPRATROP 3MG/0.5MG NEB 3 ML VIAL NEB SCH (20:12)
[2024-10-17] MEDS: OLANZAPINE 2.5 MG TAB PO SCH (20:40)
[2024-10-18] MEDS: AZITHROMYCIN 500 MG/255 ML BAG IV SCH (06:44)
[2024-10-18] MEDS: HEPARIN SOD 5,000 UNIT/0.5 ML VIAL SQ SCH (08:47)
[2024-10-18 09:31] LABS: Basophils # (auto) 0.01 K/uL (0.00-0.20); Basophils % (auto) 0.1 %; Eosinophils # (auto) 0.09 K/uL (0.00-0.50); Eosinophils % (auto) 0.7 %; Hematocrit (blood only) 30.1 % (37.0-47.0); Hemoglobin 10.2 g/dl (12.0-16.0); Immature Granulocytes # (auto) 0.07 K/uL (0.01-0.20); Immature Granulocytes % (auto) 0.6 %; Lymphocytes # (auto) 1.77 K/uL (1.20-3.40); Lymphocytes % (auto) 14.1 %; Mean Corpuscular Hemoglobin 31.9 pg (25.0-34.0); Mean Corpuscular Hgb Conc 33.9 g/dL (32.0-36.0); Mean Corpuscular Volume 94.1 fL (80.0-100.0); Mean Platelet Volume 9.5 fL (9.4-12.4); Monocytes # (auto) 0.77 K/uL (0.11-0.59); Monocytes % (auto) 6.1 %; Neutrophils # (auto) 9.87 K/uL (1.40-6.50); Neutrophils % (auto) 78.4 %; Platelet Count 272 K/uL (130-400); RDW Coefficient of Variation 13.3 % (11.5-14.5); RDW Standard Deviation 46.5 fL (36.4-46.3); White Blood Count 12.58 K/ul (4.8-10.8)
--- NOTE | 2024-10-18 10:42 | Pharmacy Report ---
Pharmacy Glycemic Short Note 2 - Date of Service October 18, 2024 - Glycemic Short BSG Results (Last 24 hours): 10/17/24 10/17/24 10/17/24 11:25 16:31 20:32 POC Glucose 233 H 72 60 L* 10/17/24 10/18/24 20:50 07:09 POC Glucose 80 105 H OUTPATIENT ANTIDIABETIC REGIMEN: * glimeperide 4mg PO BID * semaglutide 7mg PO QAM * HbA1c 7.7% (09/10/24) ASSESSMENT: 10/18 * Debra received 44 units of insulin yesterday- significant reduction compared to previous day. * 15 units basal + 29 units bolus * BSGs trending down throughout the day: 142, 233, 72, 60 mg/dL * Fasting BSG of 105 mg/dL is at goal. Will decrease basal insulin. During past admission patient was on Lantus ~12 units daily. * Post prandial BSGs below goal last evening. Loosen CF/CR to avoid further hypoglycemia. 10/17: * Debra received 133 units of insulin yesterday (50 basal, 76 bolus, and 7 IV regular bolus) * Fasting BSG this AM within goal range, slightly below goal range overnight, IV methylprednisolone discontinued yesterday afternoon, steroid effects wearing off, likely cause of dramatic drop. Will aim for basal insulin total daily dosage between a weight based stress of 2-3 given in morning and scale in evening based off of BSG. * Carbohydrate ratio tightened slightly due to elevated post-prandial BSGs 10/16: * Debra is an 89 year old female admitted with a sore throat and cough with a history of type 2 diabetes mellitus. Pharmacy has been consulted to assist with glycemic management while inpatient. * BSG upon admission elevated, receiving steroids for wheezing along with mutli- focal PNA worsening hyperglycemia. Basal insulin initiated this AM at ~0.3 units/kg, will continue on a scale this evening based on BSG up to same dose. * BSGs persistently above 300 at lunchtime, IV regular bolus given with lunchtime to augment SQ. PLAN FOR INPATIENT GLYCEMIC CONTROL: * Hold outpatient oral diabetes medications * Basal insulin * Lantus 12-15 units SQ HS based on BSG (see eMAR for additional details) * Bolus insulin * NovoLog per scale ACHS or Q6hrs while NPO * Goal Range: Low 110 mg/dL - High 140 mg/dL * Correction Factor: 35 mg/dL/unit * Nutritional / Prandial insulin per carb ratio of 1 unit per 6 grams CHO consumed
[2024-10-18] MEDS: LANTUS PER UNIT CHARGE SC ONE (12:06)
--- NOTE | 2024-10-18 19:01 | Hospitalist Progress Note ---
Date of Service October 18, 2024 Assessment & Plan (1) Legionella pneumonia: (2) Multifocal pneumonia: (3) Acute respiratory failure: (4) Sepsis: (5) Elevated troponin: (6) Hypomagnesemia: (7) Hypokalemia: (8) Urinary tract infection: (9) Hyperglycemia due to type 2 diabetes mellitus: (10) Acute metabolic encephalopathy: (11) Diarrhea: Plan 89yo female with type II DM, hypertension, recurrent UTIs, urinary incontinence, hypothyroidism, hyperlipidemia. Patient presented to the ED for sore throat, cough, and weakness. Admission imaging with multifocal pneumonia. Was hypoxic at 87% on room air at time of admission. Following admission, patient's troponin returned at 411.4 and magnesium 0.7. Her respiratory status then worsened with significant tachypnea. Was given 125mg IV Solu-Medro, IV abx, duonebs and oxy mask. By hospital day #2 her O2 requirement was significantly better. #LEGIONELLA pneumonia / multi-focal pneumonia - * legionella urine Ag returned POSITIVE * clinical picture is c/w legionella infection - b/l infiltrates on imaging, severe diarrhea, confusion, dry cough, etc. * I reported her legionella to our infection [place] control operator * Her legionella will be reported to the [facility] * Patient lives in apartment complex and has a window air conditioner unit but it has not been on recently * no recent travel * no exposure to swimming pools, etc. * source is uncertain * remains on rocephin IV and doxy was changed back to azithromycin 500mg IV daily; today's dose of azithromycin is dose #2 of such * she will need 7-10 days of azithromycin given the severity of her illness * rocephin will cover other typicals if there is bacterial co-infection * blood/sputum cx's remain negative * Respiratory biofire negative * cont incentive spirometer & flutter valve * cont tessalon 200mg TID scheduled for severe cough * doubt fungal pneumonia; doubt sarcoid - but f/u on labs for such * will repeat a cxr today #sepsis - * 2nd to pneumonia + UTI * WBCs had risen - possibly due to recent IV steroids; possibly from her legionella * either way her WBC count is improved today * repeat CBC w/ diff in am * blood cx's neg to date #elevated troponin - * likely 2nd to myocardial demand ischemia in setting of sepsis/pneumonia/UTI * no evidence of ACS * in light of troponin elevation & murmur obtained echo -- normal LV function, normal LV wall motion #acute metabolic encephalopathy - * 2nd to pneumonia and UTI * can't rule out toxic effects from high-dose steroids * severe sundowning this admission; at one point had not slept in 2+ days * started zyprexa 2.5mg PO HS on 10/17; tolerated such; did sleep better * will continue zyprexa HS * recent EKG with top-normal QTc (475msec) * with concomitant azithromycin will recheck EKG this weekend #hypomagnesemia/hypokalemia- * low mag replaced and now normal * low K replaced & now normal * has had severely low mag levels in the past - due to chronic PPI usage? other? * recheck BMP with mag tomorrow AM #UTI - * 2nd e.coli * cont rocephin for the e.coli; this will also cover for typical pneumonia pathogens * prior CT a/p without urinary tract anomalies, stones, etc * consider methenamine prophylaxis in the future given how frequent the UTIs are #T2DM - * Controlled on semaglutide and glimepiride at home; both agents on hold * recent A1C 7.7 on 09/10/24 * pharmacy glycemic consult for management much appreciated * cont basal-bolus insulins; pharmacy adjusting such; went from severe hyperglycemia to having hypoglycemia #??Upper lip swelling - * I am uncertain if this is true swelling vs her "normal" appearance of her lips * she has no tongue swelling, pharyngeal swelling, etc. * no hives * she denies that the upper lip feels swollen or is bothering her * follow carefully * eosinophils on CBC today wnl Chronic stable diagnoses: GERDPPI placed on hold due to severe hypomagnesemia; changed to famotidine twice daily hypothyroidismcontinue levothyroxine; TSH 4.2 in Aug 2024 Hypertension cont losartan Hyperlipidemiacontinue rosuvastatin DVT proph - added heparin 5000 BID PT/OT recommending rehab but thus far patient refusing left message for pt's daughter on her voicemail 10/18 Admission and Anticipated Discharge Date Admission Date: October 15, 2024 Subjective still having severe dry cough still with copious stools when she sleeps she drops her O2 sats thus O2 is re-applied when she is sleeping appetite is fair at best she denies dyspnea per staff she DID sleep overnight with scheduled zyprexa today, however, remains restless denies pain in any location tele overnight - NSR during the visit she said "I'm not going to rehab" she also mentioned her son-in-law is battling prostate ca Review of Systems Review of Systems: gen - fatigued, weak cv - no chest pain pulm - no dyspnea at rest; no significant sputum GI - no N/V despite the severe diarrhea Physical Exam Physical Exam: gen - laying in bed, restless, talking fast, hard to understand her speech at times neck - no JVD mouth - MMM, ??upper lip swollen??, lower lip appears normal; tongue w/o swel ling; no pharyngeal swelling heart - 2/6 systolic murmur RUSB, RRR, s1 s2 lungs - mild-moderate rales b/l bases, no wheezing, no increased work of breathing abd - soft NT ND BS+ ext - pulses b/l feet 2+; no edema psych - confused, restless like previous visits Results & Data Results & Data Vital Signs (Past 12 Hours) Vital Signs Temp Pulse Pulse Resp BP Pulse Ox O2 Del Method 10/18/24 15:47 37.7 C H 86 18 141/60 H 94 Nasal Cannula 10/18/24 14:19 96 H 10/18/24 11:32 Nasal Cannula 10/18/24 10:48 36.7 C 62 18 119/70 98 Nasal Cannula 10/18/24 09:00 Nasal Cannula 10/18/24 07:44 36.6 C 85 16 134/63 100 Nebulizer 10/18/24 07:35 86 10/18/24 07:03 91 H 18 94 Nasal Cannula O2 Flow Rate 10/18/24 15:47 2 10/18/24 14:19 10/18/24 11:32 2 10/18/24 10:48 2 10/18/24 09:00 2 10/18/24 07:44 10/18/24 07:35 10/18/24 07:03 2 Laboratory Results Laboratory Results - last 24 hr 10/15/24 10/17/24 10/17/24 21:16 20:32 20:50 WBC RBC Hgb Hct MCV MCH MCHC RDW Std Deviation RDW Coeff of Barry Plt Count MPV Immature Gran % (Auto) Neut % (Auto) Lymph % (Auto) [place] % (Auto) Eos % (Auto) Baso % (Auto) Neut # (Auto) Lymph # (Auto) [place] # (Auto) Eos # (Auto) Baso # (Auto) Immature Gran # (Auto) POC Glucose 60 L* 80 Urine Legionella Ag SEE NOTE A 10/18/24 10/18/24 10/18/24 07:09 08:59 11:15 WBC 12.58 H RBC 3.20 L Hgb 10.2 L Hct 30.1 L MCV 94.1 MCH 31.9 MCHC 33.9 RDW Std Deviation 46.5 H RDW Coeff of Barry 13.3 Plt Count 272 MPV 9.5 Immature Gran % (Auto) 0.6 Neut % (Auto) 78.4 Lymph % (Auto) 14.1 [place] % (Auto) 6.1 Eos % (Auto) 0.7 Baso % (Auto) 0.1 Neut # (Auto) 9.87 H Lymph # (Auto) 1.77 [place] # (Auto) 0.77 H Eos # (Auto) 0.09 Baso # (Auto) 0.01 Immature Gran # (Auto) 0.07 POC Glucose 105 H 134 H Urine Legionella Ag 10/18/24 16:31 WBC RBC Hgb Hct MCV MCH MCHC RDW Std Deviation RDW Coeff of Barry Plt Count MPV Immature Gran % (Auto) Neut % (Auto) Lymph % (Auto) [place] % (Auto) Eos % (Auto) Baso % (Auto) Neut # (Auto) Lymph # (Auto) [place] # (Auto) Eos # (Auto) Baso # (Auto) Immature Gran # (Auto) POC Glucose 87 Urine Legionella Ag Diagnostic Findings Microbiology 10/15/24 21:16 Urine,Indwelling Cath Urine Culture - Final Escherichia coli 10/16/24 10:10 Sputum, Expectorated Gram Stain - Final 10/16/24 10:10 Sputum, Expectorated Sputum Culture - Final Moderate normal [place]. 10/15/24 22:57 Blood Aerobic Blood Culture - Preliminary No growth in Aerobic bottle after 48 hours. 10/15/24 22:57 Blood Anaerobic Blood Culture - Preliminary No growth in Anaerobic bottle after 48 hours. 10/15/24 23:06 Blood Aerobic Blood Culture - Preliminary No growth in Aerobic bottle after 48 hours. 10/15/24 23:06 Blood Anaerobic Blood Culture - Preliminary No growth in Anaerobic bottle after 48 hours. PG Care Time/CCT Total # of Minutes Spent Total Time Spent with Patient: Total time spent is greater than 50% in coordination of care (as documented) at patient's floor/unit and/or counseling patient: Coding Level of Care Code 91183 SUB INP/OBS CARE 3/50MIN Diagnoses Legionella pneumonia A48.1 Multifocal pneumonia J18.9 Acute respiratory failure J96.00 Sepsis A41.9 Elevated troponin R79.89 Hypomagnesemia E83.42 Hypokalemia E87.6 Urinary tract infection N39.0 Hyperglycemia due to type 2 diabetes mellitus E11.65 Acute metabolic encephalopathy G93.41 Diarrhea R19.7
--- NOTE | 2024-10-18 21:25 | XRay Report ---
Exam(s): XR CXR 1 VIEW EXAM: XR Chest, 1 View CLINICAL HISTORY: Reason for exam: legionella pneumonia, fever. TECHNIQUE: Frontal view of the chest. COMPARISON: 10/15/24 FINDINGS: Lungs: Multifocal right lung opacities appear similar to prior. Suggestion of partial clearing of previously seen left lung opacities. Reduced lung volumes compared to prior exam, limiting evaluation. Pleural space: No significant pleural effusion. No pneumothorax. Heart: No cardiomegaly or pulmonary vascular congestion. Bones/joints: No acute fracture. No dislocation. IMPRESSION: Multifocal right lung opacities appear similar to prior. Suggestion of partial clearing of previously seen left lung opacities. Electronically signed by: Vargas Lopez M.D. 10/18/24 21:24 PM
[2024-10-19 06:47] LABS: Basophils # (auto) 0.02 K/uL (0.00-0.20); Basophils % (auto) 0.2 %; Eosinophils # (auto) 0.17 K/uL (0.00-0.50); Eosinophils % (auto) 1.5 %; Hematocrit (blood only) 29.4 % (37.0-47.0); Hemoglobin 9.8 g/dl (12.0-16.0); Immature Granulocytes # (auto) 0.08 K/uL (0.01-0.20); Immature Granulocytes % (auto) 0.7 %; Lymphocytes # (auto) 1.43 K/uL (1.20-3.40); Lymphocytes % (auto) 12.4 %; Mean Corpuscular Hemoglobin 31.5 pg (25.0-34.0); Mean Corpuscular Hgb Conc 33.3 g/dL (32.0-36.0); Mean Corpuscular Volume 94.5 fL (80.0-100.0); Mean Platelet Volume 9.5 fL (9.4-12.4); Monocytes # (auto) 0.61 K/uL (0.11-0.59); Monocytes % (auto) 5.3 %; Neutrophils # (auto) 9.25 K/uL (1.40-6.50); Neutrophils % (auto) 79.9 %; Platelet Count 267 K/uL (130-400); RDW Coefficient of Variation 13.4 % (11.5-14.5); RDW Standard Deviation 46.3 fL (36.4-46.3); Red Blood Count 3.11 M/uL (4.20-5.40); White Blood Count 11.56 K/ul (4.8-10.8)
[2024-10-19 07:06] LABS: BUN Creatinine Ratio 19.8 (10-20); Calcium 7.9 mg/dl (8.6-10.3); Creatinine Clr Calc Pharmacy 32.6 ml/min; Magnesium 1.4 mg/dl (1.7-2.4); Potassium 3.9 mmol/L (3.5-5.1)
[2024-10-19] MEDS: LANTUS PER UNIT CHARGE SC SCH (08:31)
[2024-10-19] MEDS: MAGNESIUM SULFATE / D5W 1 GM/100 ML BAG IV SCH (08:43)
--- NOTE | 2024-10-19 17:15 | Hospitalist Progress Note ---
Date of Service October 19, 2024 Assessment & Plan (1) Legionella pneumonia: (2) Multifocal pneumonia: (3) Acute respiratory failure: (4) Sepsis: (5) Elevated troponin: (6) Hypomagnesemia: (7) Hypokalemia: (8) Urinary tract infection: (9) Hyperglycemia due to type 2 diabetes mellitus: (10) Acute metabolic encephalopathy: (11) Diarrhea: Plan 89yo female with type II DM, hypertension, recurrent UTIs, urinary incontinence, hypothyroidism, hyperlipidemia. Patient presented to the ED for sore throat, cough, and weakness. Admission imaging with multifocal pneumonia. Was hypoxic at 87% on room air at time of admission. Following admission, patient's troponin returned at 411.4 and magnesium 0.7. Her respiratory status then worsened with significant tachypnea. Was given 125mg IV Solu-Medro, IV abx, duonebs and oxy mask. By hospital day #2 her O2 requirement was significantly better. #LEGIONELLA pneumonia / multi-focal pneumonia - * legionella urine Ag returned POSITIVE * clinical picture is c/w legionella infection - b/l infiltrates on imaging, severe diarrhea, confusion, dry cough, etc. * I reported her legionella to our infection control valve technician * Her legionella will be reported to the [facility] * Patient lives in apartment complex and has a window air conditioner unit but it has not been on recently * no recent travel * no exposure to swimming pools, etc. * source is uncertain * remains on rocephin 2gm IV daily and azithromycin 500mg IV daily; today's dose of azithromycin is dose #3 of such * she will need 7-10 days of azithromycin given the severity of her illness * rocephin will cover other typicals if there is bacterial co-infection * blood/sputum cx's negative * Respiratory biofire negative * cont incentive spirometer & flutter valve * cont tessalon 200mg TID scheduled for severe cough * doubt fungal pneumonia; doubt sarcoid - but f/u on labs for such * repeat cxr on 10/18 - slightly better infiltrates BALJIT, right-sided infiltrates about the same or slightly worse #sepsis - * 2nd to pneumonia + UTI * sepsis resolving * repeat CBC w/ diff in am * blood cx's neg to date #elevated troponin - * likely 2nd to myocardial demand ischemia in setting of sepsis/pneumonia/UTI * no evidence of ACS * in light of troponin elevation & murmur obtained echo -- normal LV function, normal LV wall motion #acute metabolic encephalopathy - * 2nd to pneumonia and UTI * improving * cont zyprexa 2.5mg PO HS * recent EKG with top-normal QTc (475msec) * with concomitant azithromycin will recheck EKG this weekend #hypomagnesemia/hypokalemia- * low mag replaced, normalized -- then low again today; likely due to severe diarrhea * replace with mag sulfate 3gm IV x 1 * low K replaced & now normal * has had severely low mag levels in the past - due to chronic PPI usage? other? * recheck BMP with mag tomorrow AM #UTI - * 2nd e.coli * cont rocephin for the e.coli; this will also cover for typical pneumonia pathogens * prior CT a/p without urinary tract anomalies, stones, etc * consider methenamine prophylaxis in the future given how frequent the UTIs are * can possibly change the rocephin to cefuroxime or omnicef tomorrow #T2DM - * semaglutide and glimepiride is outpatient regimen; both agents on hold * recent A1C 7.7 on 09/10/24 * pharmacy glycemic consult for management much appreciated * cont basal-bolus insulins #??Upper lip swelling - * resolved #?candidiasis of mouth - * nystatin solution 5ml QID swish/spit #PATRICIA - * resolved * peak Cr 1.4 * was likely sepsis associated PATRICIA * Cr today 1 * repeat BMP am for stability Chronic stable diagnoses: GERDPPI placed on hold due to severe hypomagnesemia; changed to famotidine twice daily hypothyroidismcontinue levothyroxine; TSH 4.2 in Aug 2024 Hypertension losartan on hold due to recent PATRICIA Hyperlipidemiacontinue rosuvastatin DVT proph - heparin 5000 BID if stable overnight and into tomorrow consider d/c of tele tomorrow PT/OT recommending rehab but thus far patient refusing left message for pt's daughter on her voicemail 10/18 will attempt to connect with daughter again later today Admission and Anticipated Discharge Date Admission Date: October 15, 2024 Subjective patient sitting in the chair during the visit according to nursing flowsheets she ate 100% of lunch no diarrhea today slept ok last night she does feel better in comparison to admission cough is ongoing, however denies dyspnea denies YUNG she remains on oxygen no chest pain no abd pain knew she was in the hospital, that it was September, and that it was Monday; thought it was 2004 remains restless Review of Systems Review of Systems: gen - less fatigue, wants to get up & move around cv - no chest pain pulm - no dyspnea, no wheezing, no significant sputum GI - no N/V Physical Exam Physical Exam: gen - sitting in chair, looks better today, less confusion; still restless & talking fast neck - no JVD HENT - MMM, lips normal today, tongue w/o swelling; mild pharyngeal erythema; ?thrush on buccal mucosa; hoarse voice heart - 2/6 systolic murmur RUSB, RRR, s1 s2 lungs - mild-moderate rales b/l bases worse on right; airation improved today; no wheezing, no increased work of breathing abd - soft NT ND BS+ ext - pulses b/l feet 2+; no edema psych - alert/oriented to person, place, and largely time; less restlessness; less confusion Results & Data Results & Data Vital Signs (Past 12 Hours) Vital Signs Temp Pulse Pulse Resp BP Pulse Ox O2 Del Method 10/19/24 17:08 18 94 Nasal Cannula 10/19/24 15:43 37.0 C 79 19 151/73 H 97 Nasal Cannula 10/19/24 12:08 36.4 C L 75 19 127/64 94 Nasal Cannula 10/19/24 08:04 37.6 C H 95 H 20 154/74 H 95 Nasal Cannula 10/19/24 08:00 Nasal Cannula 10/19/24 07:22 87 10/19/24 07:11 91 H 22 91 Nasal Cannula O2 Flow Rate 10/19/24 17:08 1 10/19/24 15:43 2.0 10/19/24 12:08 2 10/19/24 08:04 2 10/19/24 08:00 2 10/19/24 07:22 10/19/24 07:11 2 Laboratory Results Laboratory Results - last 24 hr 10/18/24 10/19/24 10/19/24 20:26 06:15 07:38 WBC 11.56 H RBC 3.11 L Hgb 9.8 L Hct 29.4 L MCV 94.5 MCH 31.5 MCHC 33.3 RDW Std Deviation 46.3 RDW Coeff of Barry 13.4 Plt Count 267 MPV 9.5 Immature Gran % (Auto) 0.7 Neut % (Auto) 79.9 Lymph % (Auto) 12.4 [place] % (Auto) 5.3 Eos % (Auto) 1.5 Baso % (Auto) 0.2 Neut # (Auto) 9.25 H Lymph # (Auto) 1.43 [place] # (Auto) 0.61 H Eos # (Auto) 0.17 Baso # (Auto) 0.02 Immature Gran # (Auto) 0.08 Sodium 135 L Potassium 3.9 Chloride 98 Carbon Dioxide 31 Anion Gap 6 BUN 21 Creatinine 1.06 Est Cr Clr Drug Dosing 32.6 eGFR 50.84 BUN/Creatinine Ratio 19.8 Glucose 187 H POC Glucose 147 H 200 H Calcium 7.9 L Magnesium 1.4 L 10/19/24 10/19/24 11:30 16:01 WBC RBC Hgb Hct MCV MCH MCHC RDW Std Deviation RDW Coeff of Barry Plt Count MPV Immature Gran % (Auto) Neut % (Auto) Lymph % (Auto) [place] % (Auto) Eos % (Auto) Baso % (Auto) Neut # (Auto) Lymph # (Auto) [place] # (Auto) Eos # (Auto) Baso # (Auto) Immature Gran # (Auto) Sodium Potassium Chloride Carbon Dioxide Anion Gap BUN Creatinine Est Cr Clr Drug Dosing eGFR BUN/Creatinine Ratio Glucose POC Glucose 280 H 146 H Calcium Magnesium PG Care Time/CCT Total # of Minutes Spent Total Time Spent with Patient: Total time spent is greater than 50% in coordination of care (as documented) at patient's floor/unit and/or counseling patient: Coding Level of Care Code 81996 SUB INP/OBS CARE 3/50MIN Diagnoses Legionella pneumonia A48.1 Multifocal pneumonia J18.9 Acute respiratory failure J96.00 Sepsis A41.9 Elevated troponin R79.89 Hypomagnesemia E83.42 Hypokalemia E87.6 Urinary tract infection N39.0 Hyperglycemia due to type 2 diabetes mellitus E11.65 Acute metabolic encephalopathy G93.41 Diarrhea R19.7
[2024-10-19] MEDS: NYSTATIN SUSP 500,000 U/5 ML UDC PO SCH (18:10)
[2024-10-20 06:42] LABS: Hematocrit (blood only) 29.5 % (37.0-47.0); Hemoglobin 9.7 g/dl (12.0-16.0); Mean Corpuscular Hemoglobin 31.2 pg (25.0-34.0); Mean Corpuscular Hgb Conc 32.9 g/dL (32.0-36.0); Mean Corpuscular Volume 94.9 fL (80.0-100.0); Mean Platelet Volume 9.6 fL (9.4-12.4); Platelet Count 284 K/uL (130-400); RDW Coefficient of Variation 13.2 % (11.5-14.5); RDW Standard Deviation 45.9 fL (36.4-46.3); Red Blood Count 3.11 M/uL (4.20-5.40); White Blood Count 12.11 K/ul (4.8-10.8)
[2024-10-20 07:11] LABS: BUN Creatinine Ratio 17.9 (10-20); Calcium 8.3 mg/dl (8.6-10.3); Creatinine Clr Calc Pharmacy 36.7 ml/min; Magnesium 1.6 mg/dl (1.7-2.4); Potassium 3.7 mmol/L (3.5-5.1)
[2024-10-20] MEDS: MAGNESIUM SULFATE / D5W 1 GM/100 ML BAG IV SCH (08:43)
--- NOTE | 2024-10-20 13:28 | Hospitalist Progress Note ---
Date of Service October 20, 2024 Assessment & Plan (1) Legionella pneumonia: (2) Multifocal pneumonia: (3) Acute respiratory failure: (4) Sepsis: (5) Elevated troponin: (6) Hypomagnesemia: (7) Hypokalemia: (8) Urinary tract infection: (9) Hyperglycemia due to type 2 diabetes mellitus: (10) Acute metabolic encephalopathy: (11) Diarrhea: (12) Acute ankle pain: Plan 89yo female with type II DM, hypertension, recurrent UTIs, urinary incontinence, hypothyroidism, hyperlipidemia. Patient presented to the ED for sore throat, cough, and weakness. Admission imaging with multifocal pneumonia. Was hypoxic at 87% on room air at time of admission. Following admission, patient's troponin returned at 411.4 and magnesium 0.7. Her respiratory status then worsened with significant tachypnea. Was given 125mg IV Solu-Medro, IV abx, duonebs and oxy mask. By hospital day #2 her O2 requirement was significantly better. #LEGIONELLA pneumonia / multi-focal pneumonia - * legionella urine Ag returned POSITIVE * clinical picture is c/w legionella infection - b/l infiltrates on imaging, severe diarrhea, confusion, dry cough, etc. 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 * source is uncertain * remains on rocephin 2gm IV daily and azithromycin 500mg IV daily; today's dose of azithromycin is dose #4 of such * she will need 7-10 days of azithromycin given the severity of her illness; will plan on 10 doses * rocephin will cover other typicals if there is bacterial co-infection * day #5 rocephin * blood/sputum cx's negative * Respiratory biofire negative * cont incentive spirometer & flutter valve * cont tessalon 200mg TID scheduled for severe cough * doubt fungal pneumonia; doubt sarcoid - but f/u on labs for such * repeat cxr on 10/18 - slightly better infiltrates BALJIT, right-sided infiltrates about the same or slightly worse * will get another x-ray today #sepsis - * 2nd to pneumonia + UTI * sepsis resolving slowly * repeat CBC w/ diff in am * blood cx's neg #elevated troponin - * likely 2nd to myocardial demand ischemia in setting of sepsis/pneumonia/UTI * no evidence of ACS * in light of troponin elevation & murmur obtained echo -- normal LV function, n ormal LV wall motion #acute metabolic encephalopathy - * 2nd to pneumonia and UTI * improving albeit slowly * cont zyprexa 2.5mg PO HS - tolerating such * EKG 10/19 with acceptable QTc (~450msec) #hypomagnesemia/hypokalemia- * ongoing but almost normal; give 2 more grams of mag sulfate x 1 today with repeat level AM * low K replaced & now normal * has had severely low mag levels in the past - due to chronic PPI usage? other? * recheck BMP with mag tomorrow AM #UTI - * 2nd e.coli * cont rocephin for the e.coli; this will also cover for typical pneumonia pathogens; day #5 rocephin; prior to that had had zosyn * prior CT a/p without urinary tract anomalies, stones, etc * consider methenamine prophylaxis in the future given how frequent the UTIs are #T2DM - * semaglutide and glimepiride is outpatient regimen; both agents on hold * recent A1C 7.7 on 09/10/24 * pharmacy glycemic consult for management much appreciated * cont basal-bolus insulins #??Upper lip swelling - * resolved #?candidiasis of mouth - * nystatin solution 5ml QID swish/spit #PATRICIA - * resolved * peak Cr 1.4 * was likely sepsis associated PATRICIA * Cr today 0.9 * repeat BMP am for stability #left ankle synovitis - acute - * ankle xrays to r/o CPPD changes * uric acid level am * prednisone 20mg po x 1 now - suspect either gout or pseudogout #hoarse voice - * legionella typically does not cause sore throat or laryngitis type symptoms * hoarseness due to severe coughing for numerous days? * laryngeal candidiasis? * other? * prednisone may help with symptoms * follow carefully Chronic stable diagnoses: GERDPPI placed on hold due to severe hypomagnesemia; changed to famotidine twice daily hypothyroidismcontinue levothyroxine; TSH 4.2 in Aug 2024 Hypertension losartan on hold due to recent PATRICIA ; BPs are controlled w/o it; will cont to hold Hyperlipidemiacontinue rosuvastatin DVT proph - heparin 5000 BID PT/OT recommending rehab but thus far patient refusing updated pt's daughter extensively on 10/19 briefly updated pt's daughter today, 10/20 Admission and Anticipated Discharge Date Admission Date: October 15, 2024 Subjective tele overnight wnl per staff she slept OK overnight eating well - 75% or more at meals no diarrhea today during the visit she was initially sleeping, but easily woke up and said "oh, hi doc" she has hoarse voice and it is hard to understand her at times she c/o sore throat, but denies difficulty swallowing she continues with cough only small amounts of clear sputum c/o left ankle pain started sometime yesterday hurts to weight bear hurts to flex/extend the ankle has never had gout to her knowledge Review of Systems Review of Systems: gen - fatigue, no fevers/chills today cv - no chest pain pulm - denies dyspnea GI - no abd pain or N/V Physical Exam Physical Exam: gen - laying in bed, coughing at times, no distress, difficult to understand her speech due to hoarse voice neck - no JVD HENT - MMM, lips normal today, tongue w/o swelling; mild posterior pharyngeal erythema; ?thrush on buccal mucosa; hoarse voice heart - 2/6 systolic murmur RUSB, RRR, s1 s2 lungs - mild-moderate rales b/l bases worse on right; airation improved once again in the apices; no wheezing, no increased work of breathing abd - soft NT ND BS+ ext - pulses b/l feet 2+; no edema psych - less restlessness but still has some; less confusion musculo - left ankle - synovitis present; warm to touch, tender with passive ROM, mild effusion; no podagra left foot; no mid-foot synovitis on left; right foot/ankle wnl Results & Data Results & Data Vital Signs (Past 12 Hours) Vital Signs Temp Pulse Pulse Resp BP Pulse Ox O2 Del Method 10/20/24 11:09 37.4 C 81 22 147/77 H 97 Nasal Cannula 10/20/24 08:57 Nasal Cannula 10/20/24 07:45 37.2 C 88 20 148/73 H 91 Nebulizer 10/20/24 07:34 88 10/20/24 06:58 83 18 92 Room Air 10/20/24 03:28 37.1 C 83 19 168/66 H 94 Nasal Cannula O2 Flow Rate 10/20/24 11:09 2 10/20/24 08:57 10/20/24 07:45 10/20/24 07:34 10/20/24 06:58 10/20/24 03:28 Laboratory Results Laboratory Results - last 24 hr 10/19/24 10/19/24 10/20/24 16:01 20:17 05:37 WBC 12.11 H RBC 3.11 L Hgb 9.7 L Hct 29.5 L MCV 94.9 MCH 31.2 MCHC 32.9 RDW Std Deviation 45.9 RDW Coeff of Barry 13.2 Plt Count 284 MPV 9.6 Sodium 134 L Potassium 3.7 Chloride 95 L Carbon Dioxide 31 Anion Gap 8 BUN 17 Creatinine 0.95 Est Cr Clr Drug Dosing 36.7 eGFR 57.99 BUN/Creatinine Ratio 17.9 Glucose 166 H POC Glucose 146 H 173 H Calcium 8.3 L Magnesium 1.6 L 10/20/24 10/20/24 07:20 10:56 WBC RBC Hgb Hct MCV MCH MCHC RDW Std Deviation RDW Coeff of Barry Plt Count MPV Sodium Potassium Chloride Carbon Dioxide Anion Gap BUN Creatinine Est Cr Clr Drug Dosing eGFR BUN/Creatinine Ratio Glucose POC Glucose 217 H 287 H Calcium Magnesium PG Care Time/CCT Total # of Minutes Spent Total Time Spent with Patient: Total time spent is greater than 50% in coordination of care (as documented) at patient's floor/unit and/or counseling patient: Coding Level of Care Code 42276 SUB INP/OBS CARE 3/50MIN Diagnoses Legionella pneumonia A48.1 Multifocal pneumonia J18.9 Acute respiratory failure J96.00 Sepsis A41.9 Elevated troponin R79.89 Hypomagnesemia E83.42 Hypokalemia E87.6 Urinary tract infection N39.0 Hyperglycemia due to type 2 diabetes mellitus E11.65 Acute metabolic encephalopathy G93.41 Diarrhea R19.7 Acute ankle pain M25.579
--- NOTE | 2024-10-20 14:06 | Electrocardiogram Report ---
Test Reason : Blood Pressure : */* mmHG Vent. Rate : 78 BPM Atrial Rate : 78 BPM P-R Int : 172 ms QRS Dur : 68 ms QT Int : 394 ms P-R-T Axes : 57 39 66 degrees QTcB Int : 449 ms Normal sinus rhythm Low voltage QRS Cannot rule out Anterior infarct , age undetermined Abnormal ECG When compared with ECG of 16-Oct-2024 00:06, ST no longer depressed in Anterior leads Confirmed by Renee Ma ([place]) on 10/20/2024 2:05:41 PM Referred By: REFERRED SELF Confirmed By: Renee Ma
--- NOTE | 2024-10-20 14:08 | XRay Report ---
INDICATION: Chest pain. TECHNIQUE: Frontal radiograph of the chest. COMPARISON: Radiograph from 10/18/2024. FINDINGS: Cardiomegaly. Multifocal infiltrates/edema, improved from prior. Small right pleural effusion. No pneumothorax. No acute fracture. IMPRESSION: Multifocal infiltrates/edema, improved from prior. Small right pleural effusion. Electronically signed by Shilo Reveles 10-20-2024 2:08 PM
--- NOTE | 2024-10-20 14:09 | XRay Report ---
INDICATION: Left ankle pain. TECHNIQUE: 3 views of the left ankle. COMPARISON: No relevant priors. FINDINGS: No acute fracture or dislocation. No lytic or blastic bony lesions seen. Small well-corticated ossific densities adjacent to the ankle medially and laterally joint likely related to prior remote injury. Mild degenerative changes in the midfoot. Plantar calcaneal enthesophyte. Spur at the Achilles insertion. Ankle mortise appears symmetric. No evidence of cortical erosion. Soft tissue swelling. IMPRESSION: Mild to moderate degenerative changes. Soft tissue swelling. No acute osseous abnormality evident. Electronically signed by Shilo Reveles 10-20-2024 2:08 PM
[2024-10-20] MEDS: predniSONE 20 MG TAB PO STA (16:38)
[2024-10-21 06:29] LABS: BUN Creatinine Ratio 17.3 (10-20); Calcium 8.9 mg/dl (8.6-10.3); Creatinine Clr Calc Pharmacy 35.8 ml/min; Magnesium 1.8 mg/dl (1.7-2.4); Uric Acid 5.2 mg/dl (2.6-7.2)
[2024-10-21] MEDS: SODIUM CHLOR 7% 4 ML NEB NEB SCH (06:59)
[2024-10-21] MEDS: predniSONE 10 MG TABLET PO SCH (08:34)
--- NOTE | 2024-10-21 10:54 | Pharmacy Report ---
Pharmacy Glycemic Short Note 2 - Date of Service October 21, 2024 - Glycemic Short BSG Results (Last 24 hours): 10/20/24 10/20/24 10/20/24 10:56 16:14 20:19 Glucose POC Glucose 287 H 100 H 208 H 10/21/24 10/21/24 05:29 07:13 Glucose 231 H POC Glucose 261 H OUTPATIENT ANTIDIABETIC REGIMEN: * glimeperide 4mg PO BID * semaglutide 7mg PO QAM * HbA1c 7.7% (09/10/24) ASSESSMENT: 10/21 * Debra received 39 units of insulin yesterday (20 were basal) * Fasting BSG this AM elevated, also started on PO prednisone 10mg daily, will add a basal scale at bedtime if BSGs remain elevated up to slightly less than a weight based stress of 3 * no changes to NovoLog at this time, may need to tighten carbohydrate ratio with steroids, cautiously adjust correction factor due to hypoglycemia. 10/18 * Debra received 44 units of insulin yesterday- significant reduction compared to previous day. * 15 units basal + 29 units bolus * BSGs trending down throughout the day: 142, 233, 72, 60 mg/dL * Fasting BSG of 105 mg/dL is at goal. Will decrease basal insulin. During past admission patient was on Lantus ~12 units daily. * Post prandial BSGs below goal last evening. Loosen CF/CR to avoid further hypoglycemia. 10/17: * Debra received 133 units of insulin yesterday (50 basal, 76 bolus, and 7 IV regular bolus) * Fasting BSG this AM within goal range, slightly below goal range overnight, IV methylprednisolone discontinued yesterday afternoon, steroid effects wearing off, likely cause of dramatic drop. Will aim for basal insulin total daily dosage between a weight based stress of 2-3 given in morning and scale in evening based off of BSG. * Carbohydrate ratio tightened slightly due to elevated post-prandial BSGs 10/16: * Debra is an 89 year old female admitted with a sore throat and cough with a history of type 2 diabetes mellitus. Pharmacy has been consulted to assist with glycemic management while inpatient. * BSG upon admission elevated, receiving steroids for wheezing along with mutli- focal PNA worsening hyperglycemia. Basal insulin initiated this AM at ~0.3 units/kg, will continue on a scale this evening based on BSG up to same dose. * BSGs persistently above 300 at lunchtime, IV regular bolus given with lunchtime to augment SQ. PLAN FOR INPATIENT GLYCEMIC CONTROL: * Hold outpatient oral diabetes medications * Basal insulin * Lantus 20 units SQ daily * Lantus 0-15 units SQ HS based on BSG (see eMAR for additional details) * Bolus insulin * NovoLog per scale ACHS or Q6hrs while NPO * Goal Range: Low 110 mg/dL - High 140 mg/dL * Correction Factor: 35 mg/dL/unit * Nutritional / Prandial insulin per carb ratio of 1 unit per 6 grams CHO consumed
--- NOTE | 2024-10-21 12:00 | Hospitalist Progress Note ---
Date of Service October 21, 2024 Assessment & Plan (1) Legionella pneumonia: (2) Multifocal pneumonia: (3) Acute respiratory failure: (4) Sepsis: (5) Elevated troponin: (6) Hypomagnesemia: (7) Hypokalemia: (8) Urinary tract infection: (9) Hyperglycemia due to type 2 diabetes mellitus: (10) Acute metabolic encephalopathy: (11) Diarrhea: (12) Acute ankle pain: Plan 89yo female with type II DM, hypertension, recurrent UTIs, urinary incontinence, hypothyroidism, hyperlipidemia. Patient presented to the ED for sore throat, cough, and weakness. Admission imaging with multifocal pneumonia. Was hypoxic at 87% on room air at time of admission. Following admission, patient's troponin returned at 411.4 and magnesium 0.7. Her respiratory status then worsened with significant tachypnea. Was given 125mg IV Solu-Medro, IV abx, duonebs and oxy mask. By hospital day #2 her O2 requirement was significantly better. #LEGIONELLA pneumonia / multi-focal pneumonia - * legionella urine Ag returned POSITIVE * clinical picture is c/w legionella infection - b/l infiltrates on imaging, severe diarrhea, confusion, dry cough, etc. * slowly improving * I reported her legionella to our infection risk control product liability director * Her legionella will be reported to the [facility] * Patient lives in apartment complex and has a window air conditioner unit but it has not been on recently * no recent travel * no exposure to swimming pools, etc. * source is uncertain * remains on rocephin 2gm IV daily and azithromycin 500mg IV daily; today's dose of azithromycin is dose #5 of such * she will need 10 days of azithromycin given the severity of her illness; could potentially switch to PO azithromycin tomorrow * rocephin will cover other typicals if there is bacterial co-infection * day #6 rocephin; prior to such was on zosyn; can d/c rocephin after today's dose * blood/sputum cx's negative * Respiratory biofire negative * cont incentive spirometer & flutter valve * cont tessalon 200mg TID scheduled for severe cough * doubt fungal pneumonia; doubt sarcoid - but f/u on labs for such * repeat cxr on 10/18 - slightly better infiltrates BALJIT, right-sided infiltrates about the same or slightly worse * repeat cxr 10/20 - improved b/l infiltrates especially the right #sepsis - * 2nd to pneumonia + UTI * sepsis resolving * repeat CBC w/ diff in am * blood cx's neg #elevated troponin - * likely 2nd to myocardial demand ischemia in setting of sepsis/pneumonia/UTI * no evidence of ACS * in light of troponin elevation & murmur obtained echo -- normal LV function, normal LV wall motion #acute metabolic encephalopathy - * 2nd to pneumonia and UTI * improving * cont zyprexa 2.5mg PO HS - tolerating such * EKG 10/19 with acceptable QTc (~450msec) #hypomagnesemia/hypokalemia- * mag replace/level wnl today * low K replaced/level wnl today * has had severely low mag levels in the past - due to chronic PPI usage? other? #UTI - * 2nd e.coli; received full 7 days of zosyn/rocephin * prior CT a/p without urinary tract anomalies, stones, etc * consider methenamine prophylaxis in the future given how frequent the UTIs are #T2DM - * semaglutide and glimepiride is outpatient regimen; both agents on hold * recent A1C 7.7 on 09/10/24 * pharmacy glycemic consult for management much appreciated * cont basal-bolus insulins #??Upper lip swelling - * resolved #?candidiasis of mouth - * nystatin solution 5ml QID swish/spit * appears resolved * cont swish a few more days #PATRICIA - * resolved * peak Cr 1.4 * was likely sepsis associated PATRICIA * Cr today 0.9 * repeat BMP am for stability #left ankle synovitis - acute - * ankle xrays without CPPD changes or fracture * uric acid level <6 but still suspect this was acute gout * MUCH improved s/p prednisone 20mg po x 1 yesterday * lower prednisone to 10mg daily and Rx for 5-7 days in total #hoarse voice - * legionella typically does not cause sore throat or laryngitis type symptoms * hoarseness due to severe coughing for numerous days? * laryngeal candidiasis? * other? * prednisone may help with symptoms * follow carefully * no evidence of angioedema Chronic stable diagnoses: GERDPPI placed on hold due to severe hypomagnesemia; changed to famotidine twice daily hypothyroidismcontinue levothyroxine; TSH 4.2 in Aug 2024 Hypertension losartan on hold due to recent PATRICIA ; BPs trending up; if BMP tomorrow is wnl resume losartan Hyperlipidemiacontinue rosuvastatin DVT proph - heparin 5000 BID PT/OT recommending rehab - patient IS agreeable to [facility] referral updated pt's daughter extensively on 10/19 briefly updated pt's daughter 10/[address] with her Legionella and progressing Admission and Anticipated Discharge Date Admission Date: October 15, 2024 Subjective tele again overnight wnl patient lying in bed during the visit eating 100% of meals her hoarse voice & sore throat continue - the hoarseness makes it hard to understand what she is saying slept well last pm left ankle pain MUCH better could weight bear today pt IS agreeable to going to [facility] for rehab she has had family/friends go there for rehab staff report she is very weak with OOB to chair/toilet, etc. cough continues but sputum is now clear; previously was yellow denies dyspnea with attempts to d/c O2 her sats drop to about 87% in RA Review of Systems Review of Systems: gen - no fevers or chills cv - no chest pain GI - no dysphagia or odynophagia despite sore throat/hoarse voice; still mild loose stool but only 2 BMs today pulm - no dyspnea; no wheezing Physical Exam Physical Exam: gen - laying in bed, coughing at times, no distress, difficult to understand her speech due to hoarse voice; still restless/fidgety neck - no JVD HENT - MMM, lips normal/no angioedema, tongue w/o swelling; mild posterior pharyngeal erythema; previous thrush on buccal mucosa resolved; hoarse voice heart - 2/6 systolic murmur RUSB, RRR, s1 s2 lungs - mild-moderate rales b/l bases worse on right - improved; airation improved; no wheezing, no increased work of breathing abd - soft NT ND BS+ ext - pulses b/l feet 2+; no edema psych - thought it was 2004, but knew "it was the last day of September" and that she was in the hospital musculo - left ankle synovitis IMPROVED; less swelling, less warmth, and passive ROM of L ankle did not cause pain Results & Data Results & Data Vital Signs (Past 12 Hours) Vital Signs Temp Pulse Resp BP BP Pulse Ox Pulse Ox 10/21/24 11:39 36.7 C 63 22 154/62 H 95 10/21/24 07:41 36.8 C 79 20 140/65 99 10/21/24 07:28 10/21/24 07:00 79 16 98 10/21/24 03:04 36.6 C 81 18 153/72 H 96 10/21/24 01:00 95 O2 Del Method O2 Del Method O2 Flow Rate O2 Flow Rate 10/21/24 11:39 Nasal Cannula 1 10/21/24 07:41 Nebulizer 10/21/24 07:28 Nasal Cannula 1 10/21/24 07:00 Nasal Cannula 1 10/21/24 03:04 Nasal Cannula 2.0 10/21/24 01:00 Nasal Cannula 2 Laboratory Results Laboratory Results - last 24 hr 10/20/24 10/20/24 10/21/24 16:14 20:19 05:29 Sodium 135 L Potassium 4.0 Chloride 93 L Carbon Dioxide 34 H Anion Gap 8 BUN 17 Creatinine 0.98 Est Cr Clr Drug Dosing 35.8 eGFR 55.86 BUN/Creatinine Ratio 17.3 Glucose 231 H POC Glucose 100 H 208 H Uric Acid 5.2 Calcium 8.9 Magnesium 1.8 10/21/24 10/21/24 07:13 11:26 Sodium Potassium Chloride Carbon Dioxide Anion Gap BUN Creatinine Est Cr Clr Drug Dosing eGFR BUN/Creatinine Ratio Glucose POC Glucose 261 H 256 H Uric Acid Calcium Magnesium PG Care Time/CCT Total # of Minutes Spent Total Time Spent with Patient: Total time spent is greater than 50% in coordination of care (as documented) at patient's floor/unit and/or counseling patient: Coding Level of Care Code 51064 SUB INP/OBS CARE 3/50MIN Diagnoses Legionella pneumonia A48.1 Multifocal pneumonia J18.9 Acute respiratory failure J96.00 Sepsis A41.9 Elevated troponin R79.89 Hypomagnesemia E83.42 Hypokalemia E87.6 Urinary tract infection N39.0 Hyperglycemia due to type 2 diabetes mellitus E11.65 Acute metabolic encephalopathy G93.41 Diarrhea R19.7 Acute ankle pain M25.579
[2024-10-21 19:37] LABS: Angiotensin Converting Enzyme 26 U/L (9-67); Histoplasma H Band Ab Negative (Negative); Histoplasma M Band Ab Negative (Negative)
[2024-10-21] MEDS: LANTUS PER UNIT CHARGE SC SCH (21:28)
[2024-10-22 06:19] LABS: Basophils # (auto) 0.01 K/uL (0.00-0.20); Basophils % (auto) 0.1 %; Eosinophils # (auto) 0.13 K/uL (0.00-0.50); Eosinophils % (auto) 1.2 %; Hemoglobin 10.5 g/dl (12.0-16.0); Immature Granulocytes # (auto) 0.07 K/uL (0.01-0.20); Immature Granulocytes % (auto) 0.6 %; Lymphocytes # (auto) 3.27 K/uL (1.20-3.40); Lymphocytes % (auto) 30.3 %; Mean Corpuscular Hemoglobin 31.3 pg (25.0-34.0); Mean Corpuscular Hgb Conc 32.8 g/dL (32.0-36.0); Mean Corpuscular Volume 95.5 fL (80.0-100.0); Mean Platelet Volume 9.4 fL (9.4-12.4); Monocytes # (auto) 0.69 K/uL (0.11-0.59); Monocytes % (auto) 6.4 %; Neutrophils # (auto) 6.61 K/uL (1.40-6.50); Neutrophils % (auto) 61.4 %; Platelet Count 344 K/uL (130-400); RDW Coefficient of Variation 13.4 % (11.5-14.5); RDW Standard Deviation 46.5 fL (36.4-46.3); Red Blood Count 3.35 M/uL (4.20-5.40); White Blood Count 10.78 K/ul (4.8-10.8)
[2024-10-22 06:45] LABS: Calcium 8.8 mg/dl (8.6-10.3); Creatinine Clr Calc Pharmacy 34.2 ml/min; Potassium 3.8 mmol/L (3.5-5.1)
[2024-10-22] MEDS: LANTUS PER UNIT CHARGE SC SCH (09:15)
--- NOTE | 2024-10-22 15:23 | CT Scan Report ---
CT soft tissue neck wo con HISTORY: 89 years-old Female ?recent angioedema of lip; severe hoarse voice COMPARISON: Chest radiograph 10/20/2024, chest CT 10/15/2024 TECHNIQUE: Multiple axial CT images of the soft tissues of the neck were obtained without IV contrast . A dose lowering technique was used consistent with the principals of CLAUDIA. FINDINGS: The imaged intracranial structures demonstrate involutional changes with chronic microvascular ischem ic disease. Prior bilateral lens repair. Leftward bowing and spurring the nasal septum. Moderate enla rgement of the adenoid tonsils. No peritonsillar fluid collections or discrete mass lesions identifie d. Unremarkable appearance of the glottis and subglottic airway. Unremarkable thyroid, parotid and joaquin bmandibular glands. Mediastinal lymphadenopathy includes a 1.3 x 1.0 cm pretracheal lymph node on image 3-13 series 3. Fi ndings are similar to prior. Patchy groundglass and consolidative opacities are noted within the righ t greater than left lung apices, similar to the prior CT examination. Multilevel degenerative changes of the cervical spine. Small mastoid effusions. Degenerative changes of the cervical spine without a cute fracture. 10 mm right supraclavicular lymph node image 274 is unchanged. IMPRESSION: 1. No acute inflammatory changes, fluid collections or suspicious mass lesions identified. 2. Mediastinal lymphadenopathy with pulmonary opacities redemonstrated, better evaluated on the chest CT from 10/15/2024. 3. Small mastoid effusions. ACT 112: Negative or not required by law. The above report was generated using voice recognition software. It may contain grammatical, syntax o r spelling errors. Electronically signed by: Adiel Barker M.D. 10/22/2024 3:21 PM
--- NOTE | 2024-10-22 15:36 | Hospitalist Progress Note ---
Date of Service October 22, 2024 Assessment & Plan (1) Legionella pneumonia: (2) Multifocal pneumonia: (3) Acute respiratory failure: (4) Sepsis: (5) Elevated troponin: (6) Hypomagnesemia: (7) Hypokalemia: (8) Urinary tract infection: (9) Hyperglycemia due to type 2 diabetes mellitus: (10) Acute metabolic encephalopathy: (11) Diarrhea: (12) Acute ankle pain: Plan 89yo female with type II DM, hypertension, recurrent UTIs, urinary incontinence, hypothyroidism, hyperlipidemia. Patient presented to the ED for sore throat, cough, and weakness. Admission imaging with multifocal pneumonia. Was hypoxic at 87% on room air at time of admission. Following admission, patient's troponin returned at 411.4 and magnesium 0.7. Her respiratory status then worsened with significant tachypnea. Was given 125mg IV Solu-Medro, IV abx, duonebs and oxy mask. By hospital day #2 her O2 requirement was significantly better. #LEGIONELLA pneumonia / multi-focal pneumonia - * legionella urine Ag returned POSITIVE * clinical picture c/w legionella infection - b/l infiltrates on imaging, severe diarrhea, confusion, dry cough, etc. * improving nicely * I reported her legionella to our infection production control planner * Her legionella will be reported to the [facility] * Patient lives in apartment complex and has a window air conditioner unit but it has not been on recently * no recent travel * no exposure to swimming pools, etc. * source uncertain * remains on azithromycin - today is dose #6 of such; can change IV to PO starting 10/23; plan 10 days in total of azithromycin * completed 7 days of IV zosyn/rocephin for typical pathogen coverage * blood/sputum cx's negative * Respiratory biofire negative * cont incentive spirometer & flutter valve * cont tessalon 200mg TID scheduled for severe cough * cont duonebs BID * cont saline nebs BID * Histoplasmosis Ab's negative * JENN level for sarcoid - normal * repeat cxr on 10/18 - slightly better infiltrates BALJIT, right-sided infiltrates about the same or slightly worse * repeat cxr 10/20 - improved b/l infiltrates especially the right * 10/22 - O2 weaned off and stable in room air #sepsis - * 2nd to pneumonia + UTI * sepsis resolved * blood cx's neg * cbc - leukocytosis resolved #elevated troponin - * likely 2nd to myocardial demand ischemia in setting of sepsis/pneumonia/UTI * no evidence of ACS * in light of troponin elevation & murmur obtained echo -- normal LV function, normal LV wall motion #acute metabolic encephalopathy - * 2nd to pneumonia and UTI * improving but still confused (daughter cesar by phone confirmed she is still confused) * cont zyprexa 2.5mg PO HS - tolerating such * EKG 10/19 with acceptable QTc (~450msec) * consider CT head if delirium persists #hypomagnesemia/hypokalemia- * mag replaced/level wnl * low K replaced/level wnl * has had severely low mag levels in the past - due to chronic PPI usage? other? #UTI - * 2nd e.coli; received full 7 days of zosyn/rocephin * prior CT a/p without urinary tract anomalies, stones, etc * consider methenamine prophylaxis in the future given how frequent the UTIs are #T2DM - * semaglutide and glimepiride is outpatient regimen; both agents on hold * recent A1C 7.7 on 09/10/24 * pharmacy glycemic consult for management much appreciated * cont basal-bolus insulins #??Upper lip swelling - * resolved #?candidiasis of mouth - * nystatin solution 5ml QID swish/spit * appears resolved * cont swish a few more days #PATRICIA - * resolved * peak Cr 1.4 * was likely sepsis associated PATRICIA * Cr today 1 * repeat BMP am for stability #left ankle synovitis - acute - * ankle xrays without CPPD changes or fracture * uric acid level <6 but still suspect this was acute gout * MUCH improved s/p prednisone 20mg po x 1, followed by 10mg today * will lower prednisone to 5mg starting /2 and plan another 4-5 days then stop prednisone #hoarse voice - * legionella typically does not cause sore throat or laryngitis type symptoms * hoarseness due to severe coughing for numerous days? * laryngeal candidiasis? * other? * due to persistent c/o sore throat and ?recent upper lip swelling obtained CT soft tissues neck -- negative * follow, and if hoarseness persists longer than a week or 2 then send to ENT for consideration of direct laryngoscopy Chronic stable diagnoses: GERDPPI placed on hold due to severe hypomagnesemia; changed to famotidine twice daily hypothyroidismcontinue levothyroxine; TSH 4.2 in Aug 2024 Hypertension losartan on hold due to recent PATRICIA ; will resume as BPs now high Hyperlipidemiacontinue rosuvastatin DVT proph - heparin 5000 BID PT/OT recommending rehab - patient IS agreeable to [facility] referral updated pt's daughter extensively on 10/19 briefly updated pt's daughter 10/20 Admission and Anticipated Discharge Date Admission Date: October 15, 2024 Subjective pt's only complaint is that of sore throat she points to the thyroid cartilage area as the location of her pain does hurt to swallow food/beverage voice remains hoarse she denies dyspnea or stridor continues with cough - mainly dry eating 100% of meals remains mildly confused did sleep last night she asked about rehab Review of Systems Review of Systems: gen - no fevers or chills cv - no chest pain pulm - no wheezing GI - no N/V; still with some loose stool Physical Exam Physical Exam: gen - laying in bed, difficult to understand her speech due to hoarse voice; still restless/fidgety/hyperactive, coughing neck - no JVD HENT - MMM, lips normal/no angioedema, tongue w/o swelling; mild-moderate posterior pharyngeal erythema; tonsils about 2+ b/l; previous thrush on buccal mucosa resolved; hoarse voice; I do not feel any angioedema of the anterior neck with palpation; no lymph nodes heart - 2/6 systolic murmur RUSB, RRR, s1 s2 lungs - mild rales b/l bases worse on right - improved; airation improved; no wheezing, no increased work of breathing; best she has sounded in the last week abd - soft NT ND BS+ ext - pulses b/l feet 2+; no edema musculo - left ankle synovitis resolved; no warmth, passive ROM of L ankle did not cause any pain Results & Data Results & Data Vital Signs (Past 12 Hours) Vital Signs Temp Pulse Pulse Resp BP BP Pulse Ox 10/22/24 11:00 37.0 C 72 24 122/43 L 94 10/22/24 07:30 79 10/22/24 07:30 10/22/24 07:18 91 H 18 98 10/22/24 07:01 36.9 C 80 20 124/80 97 O2 Del Method O2 Flow Rate 10/22/24 11:00 Room Air 10/22/24 07:30 10/22/24 07:30 Nasal Cannula 2 10/22/24 07:18 Nasal Cannula 2 10/22/24 07:01 Nasal Cannula 2 Laboratory Results Laboratory Results - last 24 hr 10/22/24 10/22/24 10/22/24 05:42 07:03 11:23 WBC 10.78 RBC 3.35 L Hgb 10.5 L Hct 32.0 L MCV 95.5 MCH 31.3 MCHC 32.8 RDW Std Deviation 46.5 H RDW Coeff of Barry 13.4 Plt Count 344 MPV 9.4 Immature Gran % (Auto) 0.6 Neut % (Auto) 61.4 Lymph % (Auto) 30.3 Toole % (Auto) 6.4 Eos % (Auto) 1.2 Baso % (Auto) 0.1 Neut # (Auto) 6.61 H Lymph # (Auto) 3.27 Toole # (Auto) 0.69 H Eos # (Auto) 0.13 Baso # (Auto) 0.01 Immature Gran # (Auto) 0.07 Sodium 139 Potassium 3.8 Chloride 97 L Carbon Dioxide 35 H Anion Gap 7 BUN 20 Creatinine 1.00 Est Cr Clr Drug Dosing 34.2 eGFR 54.53 BUN/Creatinine Ratio 20.0 Glucose 137 H POC Glucose 181 H 159 H Calcium 8.8 10/22/24 10/22/24 16:21 20:08 WBC RBC Hgb Hct MCV MCH MCHC RDW Std Deviation RDW Coeff of Barry Plt Count MPV Immature Gran % (Auto) Neut % (Auto) Lymph % (Auto) Toole % (Auto) Eos % (Auto) Baso % (Auto) Neut # (Auto) Lymph # (Auto) Toole # (Auto) Eos # (Auto) Baso # (Auto) Immature Gran # (Auto) Sodium Potassium Chloride Carbon Dioxide Anion Gap BUN Creatinine Est Cr Clr Drug Dosing eGFR BUN/Creatinine Ratio Glucose POC Glucose 140 H 186 H Calcium Diagnostic Findings Soft Tissue Neck CT 10/22/24 14:18 CT soft tissue neck wo con HISTORY: 89 years-old Female ?recent angioedema of lip; severe hoarse voice COMPARISON: Chest radiograph 10/20/2024, chest CT 10/15/2024 TECHNIQUE: Multiple axial CT images of the soft tissues of the neck were obtained without IV contrast. A dose lowering technique was used consistent with the principals of CLAUDIA. FINDINGS: The imaged intracranial structures demonstrate involutional changes with chronic microvascular ischemic disease. Prior bilateral lens repair. Leftward bowing and spurring the nasal septum. Moderate enlargement of the adenoid tonsils. No peritonsillar fluid collections or discrete mass lesions identified. Unremarkable appearance of the glottis and subglottic airway. Unremarkable thyroid, parotid and submandibular glands. Mediastinal lymphadenopathy includes a 1.3 x 1.0 cm pretracheal lymph node on image 3-13 series 3. Findings are similar to prior. Patchy groundglass and consolidative opacities are noted within the right greater than left lung apices, similar to the prior CT examination. Multilevel degenerative changes of the cervical spine. Small mastoid effusions. Degenerative changes of the cervical spine without acute fracture. 10 mm right supraclavicular lymph node image 274 is unchanged. IMPRESSION: 1. No acute inflammatory changes, fluid collections or suspicious mass lesions identified. 2. Mediastinal lymphadenopathy with pulmonary opacities redemonstrated, better evaluated on the chest CT from 10/15/2024. 3. Small mastoid effusions. ACT 112: Negative or not required by law. The above report was generated using voice recognition software. It may contain grammatical, syntax or spelling errors. Electronically signed by: Adiel Barker M.D. 10/22/2024 3:21 PM PG Care Time/CCT Total # of Minutes Spent Total Time Spent with Patient: Total time spent is greater than 50% in coordination of care (as documented) at patient's floor/unit and/or counseling patient: Coding Level of Care Code 21777 SUB INP/OBS CARE 3/50MIN Diagnoses Legionella pneumonia A48.1 Multifocal pneumonia J18.9 Acute respiratory failure J96.00 Sepsis A41.9 Elevated troponin R79.89 Hypomagnesemia E83.42 Hypokalemia E87.6 Urinary tract infection N39.0 Hyperglycemia due to type 2 diabetes mellitus E11.65 Acute metabolic encephalopathy G93.41 Diarrhea R19.7 Acute ankle pain M25.579
[2024-10-23] MEDS: predniSONE 5 MG TAB PO SCH (09:01)
[2024-10-23] MEDS: AZITHROMYCIN 250 MG TAB PO SCH (09:01)
[2024-10-23] MEDS: LOSARTAN POTASSIUM 25 MG TAB PO SCH (09:02)
--- NOTE | 2024-10-23 16:19 | CT Scan Report ---
Clinical History: Confusion Technique: Axial computed tomography images were obtained of the brain without intravenous contrast. Comparison is made to the prior CT dated 02/02/2024 Findings: There is unchanged cerebral atrophy, within expected limits for the patient's age. Areas of decreased attenuation are seen within the periventricular white matter, likely representing chronic small vessel ischemic disease. There is no definite sign of acute or old infarction. No intracranial hemorrhage is evident. No definite mass lesion is seen on this noncontrast examination. There is no midline shift or other form of herniation. No hydrocephalus is seen. No fracture is identified. The orbits and the visualized paranasal sinuses appear unremarkable. The mastoid air cells appear clear. Impression: 1. Cerebral atrophy and chronic small vessel ischemic disease 2. Otherwise unremarkable noncontrast CT of the brain Electronically signed by Chava Armijo 10-23-2024 4:19 PM
--- NOTE | 2024-10-23 18:11 | Hospitalist Progress Note ---
Date of Service October 23, 2024 Assessment & Plan (1) Legionella pneumonia: (2) Multifocal pneumonia: (3) Acute respiratory failure: (4) Sepsis: (5) Elevated troponin: (6) Hypomagnesemia: (7) Hypokalemia: (8) Urinary tract infection: (9) Hyperglycemia due to type 2 diabetes mellitus: (10) Acute metabolic encephalopathy: (11) Diarrhea: (12) Acute ankle pain: Plan 89yo female with type II DM, hypertension, recurrent UTIs, urinary incontinence, hypothyroidism, hyperlipidemia. Patient presented to the ED for sore throat, cough, and weakness. Admission imaging with multifocal pneumonia. Was hypoxic at 87% on room air at time of admission. Following admission, patient's troponin returned at 411.4 and magnesium 0.7. Her respiratory status then worsened with significant tachypnea. Was given 125mg IV Solu-Medro, IV abx, duonebs and oxy mask. By hospital day #2 her O2 requirement was significantly better. #LEGIONELLA pneumonia / multi-focal pneumonia - * legionella urine Ag returned POSITIVE * clinical picture c/w legionella infection - b/l infiltrates on imaging, severe diarrhea, confusion, dry cough, etc. * improving * +legionella reported to our infection manager inventory control * Her legionella reported to the [facility] * Patient lives in apartment complex and has a window air conditioner unit but it has not been on recently * no recent travel * no exposure to swimming pools, etc. * source uncertain * remains on azithromycin - today is dose #7 of such --> plan 10 days in total of azithromycin * completed 7 days of IV zosyn/rocephin for typical pathogen coverage * blood/sputum cx's negative * Respiratory biofire negative * cont incentive spirometer & flutter valve * cont tessalon 200mg TID scheduled for severe cough * no wheeing thus stop duonebs BID; stop saline nebs BID as these have not helped with sputum production/congestion * Histoplasmosis Ab's negative * JENN level for sarcoid - normal * repeat cxr on 10/18 - slightly better infiltrates BALJIT, right-sided infiltrates about the same or slightly worse * repeat cxr 10/20 - improved b/l infiltrates especially the right * 10/22 - O2 weaned off and stable in room air #sepsis - * 2nd to pneumonia + UTI * sepsis resolved * blood cx's neg * most recent cbc - leukocytosis resolved #elevated troponin - * likely 2nd to myocardial demand ischemia in setting of sepsis/pneumonia/UTI * no evidence of ACS * in light of troponin elevation & murmur obtained echo -- normal LV function, normal LV wall motion #acute metabolic encephalopathy - ONGOING * 2nd to pneumonia and UTI * improving but still very confused * cont zyprexa 2.5mg PO HS - tolerating such * EKG 10/19 with acceptable QTc (~450msec) * obtained CT head today due to ongoing confusion --> no acute findings; atrophy present #hypomagnesemia/hypokalemia- * mag replaced/level wnl * low K replaced/level wnl * has had severely low mag levels in the past - due to chronic PPI usage? other? * repeat BMP/mag in am #UTI - * 2nd e.coli; received full 7 days of zosyn/rocephin * prior CT a/p without urinary tract anomalies, stones, etc * consider methenamine prophylaxis in the future given how frequent the UTIs are #T2DM - * semaglutide and glimepiride is outpatient regimen; both agents on hold * recent A1C 7.7 on 09/10/24 * pharmacy glycemic consult for management much appreciated * cont basal-bolus insulins #??Upper lip swelling - * resolved #?candidiasis of mouth - * nystatin solution 5ml QID swish/spit * resolved * cont swish until azithromycin course is complete #PATRICIA - * resolved * peak Cr 1.4 * was likely sepsis associated PATRICIA * repeat BMP am for stability #left ankle synovitis - acute - * ankle xrays without CPPD changes or fracture * uric acid level <6 but still suspect this was acute gout * MUCH improved s/p prednisone 20mg po x 1, followed by 10mg, followed by 5mg daily * plan another 3 days then stop prednisone #hoarse voice - * legionella typically does not cause sore throat or laryngitis type symptoms * hoarseness due to severe coughing for numerous days? * laryngeal candidiasis? * other? * due to persistent c/o sore throat and ?recent upper lip swelling obtained CT soft tissues neck to exclude laryngeal edema/airway compromise -- NEGATIVE * follow, and if hoarseness persists longer than a week or 2 then send to ENT for consideration of direct laryngoscopy Chronic stable diagnoses: GERDPPI placed on hold due to severe hypomagnesemia; changed to famotidine twice daily hypothyroidismcontinue levothyroxine; TSH 4.2 in Aug 2024 Hypertension losartan Hyperlipidemiacontinue rosuvastatin DVT proph - heparin 5000 BID PT/OT recommending rehab - patient IS agreeable to [facility] referral updated pt's daughter again this evening, 10/23, by phone Admission and Anticipated Discharge Date Admission Date: October 15, 2024 Subjective tele overnight wnl patient slept overnight but remains confused with visual hallucinations at times although she is confused she said "when am I going to that place in [place]?" ([facility]) she continues with cough but denies dyspnea or YUNG ate good breakfast main complaint is sore throat voice less hoarse today staff today noted she had a choking spell while eating continues with diarrhea Review of Systems Review of Systems: gen - energy is improved; she says day to day "I got to get moving" cv - no chest pain pulm - no YUNG GI - no abd pain or N/V musculo - no pain L ankle Physical Exam Physical Exam: gen - laying in bed, speech less hoarse & more understandable today; still restless/hyperactive but nothing like several days ago; coughing neck - no JVD HENT - MMM, lips normal/no angioedema, tongue w/o swelling; mild posterior pharyngeal erythema; tonsils about 2+ b/l; previous thrush on buccal mucosa resolved; hoarse voice modestly improved; I do not feel any angioedema of the anterior neck with palpation heart - 2/6 systolic murmur RUSB, RRR, s1 s2 lungs - mild rales b/l bases - again improved; airation improved; no wheezing, no increased work of breathing abd - soft NT ND BS+ ext - pulses b/l feet 2+; no edema musculo - left ankle synovitis resolved Results & Data Results & Data Vital Signs (Past 12 Hours) Vital Signs Temp Pulse Pulse Resp BP Pulse Ox O2 Del Method 10/23/24 15:55 36.4 C L 74 18 133/73 95 Room Air 10/23/24 10:33 36.8 C 82 17 119/74 94 Room Air 10/23/24 08:00 Room Air 10/23/24 07:35 36.8 C 86 20 153/54 H 92 Room Air 10/23/24 07:01 98 H 18 93 Room Air Laboratory Results Laboratory Results - last 48 hr 10/22/24 10/22/24 10/22/24 11:23 16:21 20:08 POC Glucose 159 H 140 H 186 H 10/23/24 10/23/24 10/23/24 07:31 11:18 16:33 POC Glucose 124 H 115 H 168 H PG Care Time/CCT Total # of Minutes Spent Total Time Spent with Patient: Total time spent is greater than 50% in coordination of care (as documented) at patient's floor/unit and/or counseling patient: Coding Level of Care Code 24428 SUB INP/OBS CARE 3/50MIN Diagnoses Legionella pneumonia A48.1 Multifocal pneumonia J18.9 Acute respiratory failure J96.00 Sepsis A41.9 Elevated troponin R79.89 Hypomagnesemia E83.42 Hypokalemia E87.6 Urinary tract infection N39.0 Hyperglycemia due to type 2 diabetes mellitus E11.65 Acute metabolic encephalopathy G93.41 Diarrhea R19.7 Acute ankle pain M25.579
[2024-10-24 09:34] LABS: BUN Creatinine Ratio 18.2 (10-20); Calcium 8.5 mg/dl (8.6-10.3); Creatinine Clr Calc Pharmacy 34.2 ml/min; Magnesium 1.3 mg/dl (1.7-2.4); Potassium 3.9 mmol/L (3.5-5.1)
[2024-10-24] MEDS: MAGNESIUM SULFATE / D5W 1 GM/100 ML BAG IV SCH (13:57)
--- NOTE | 2024-10-24 14:23 | Pharmacy Report ---
Pharmacy Glycemic Short Note 2 - Date of Service October 24, 2024 - Glycemic Short BSG Results (Last 24 hours): 10/23/24 10/23/24 10/24/24 16:33 19:53 07:13 Glucose POC Glucose 168 H 151 H 119 H 10/24/24 10/24/24 08:47 11:06 Glucose 217 H POC Glucose 177 H OUTPATIENT ANTIDIABETIC REGIMEN: * glimeperide 4mg PO BID * semaglutide 7mg PO QAM * HbA1c 7.7% (09/10/24) ASSESSMENT: 10/24: * Patient received 20 units basal and 12 units bolus insulins yesterday. BSGs were well controlled. * Fasting BSG at goal today 119 mg/dl. Continued basal insulin and novolog parameters the same as yesterday. 10/21 * Debra received 39 units of insulin yesterday (20 were basal) * Fasting BSG this AM elevated, also started on PO prednisone 10mg daily, will add a basal scale at bedtime if BSGs remain elevated up to slightly less than a weight based stress of 3 * no changes to NovoLog at this time, may need to tighten carbohydrate ratio with steroids, cautiously adjust correction factor due to hypoglycemia. 10/18 * Debra received 44 units of insulin yesterday- significant reduction compared to previous day. * 15 units basal + 29 units bolus * BSGs trending down throughout the day: 142, 233, 72, 60 mg/dL * Fasting BSG of 105 mg/dL is at goal. Will decrease basal insulin. During past admission patient was on Lantus ~12 units daily. * Post prandial BSGs below goal last evening. Loosen CF/CR to avoid further hypoglycemia. 10/17: * Debra received 133 units of insulin yesterday (50 basal, 76 bolus, and 7 IV regular bolus) * Fasting BSG this AM within goal range, slightly below goal range overnight, IV methylprednisolone discontinued yesterday afternoon, steroid effects wearing off, likely cause of dramatic drop. Will aim for basal insulin total daily dosage between a weight based stress of 2-3 given in morning and scale in evening based off of BSG. * Carbohydrate ratio tightened slightly due to elevated post-prandial BSGs 10/16: * Debra is an 89 year old female admitted with a sore throat and cough with a history of type 2 diabetes mellitus. Pharmacy has been consulted to assist with glycemic management while inpatient. * BSG upon admission elevated, receiving steroids for wheezing along with mutli- focal PNA worsening hyperglycemia. Basal insulin initiated this AM at ~0.3 units/kg, will continue on a scale this evening based on BSG up to same dose. * BSGs persistently above 300 at lunchtime, IV regular bolus given with lunchtime to augment SQ. PLAN FOR INPATIENT GLYCEMIC CONTROL: * Hold outpatient oral diabetes medications * Basal insulin * Lantus 20 units SQ daily * Lantus 0-15 units SQ HS based on BSG (see eMAR for additional details) * Bolus insulin * NovoLog per scale ACHS or Q6hrs while NPO * Goal Range: Low 110 mg/dL - High 140 mg/dL * Correction Factor: 35 mg/dL/unit * Nutritional / Prandial insulin per carb ratio of 1 unit per 6 grams CHO consumed
--- NOTE | 2024-10-24 16:50 | Hospitalist Progress Note ---
<Statement entered by Liyah Gillespie MD - 10/24/24 18:03> remains quite confused, we will reduce her antitussives and see if that helps. Stopped Robitussin with codeine which she was not getting, decreased dose of Tessalon and Guaifenex Date of Service October 24, 2024 Assessment & Plan (1) Legionella pneumonia: (2) Multifocal pneumonia: (3) Acute respiratory failure: (4) Sepsis: (5) Elevated troponin: (6) Hypomagnesemia: (7) Hypokalemia: (8) Urinary tract infection: (9) Hyperglycemia due to type 2 diabetes mellitus: (10) Acute metabolic encephalopathy: (11) Diarrhea: (12) Acute ankle pain: Plan 89yo female with type II DM, hypertension, recurrent UTIs, urinary incontinence, hypothyroidism, hyperlipidemia. Patient presented to the ED for sore throat, cough, and weakness. Admission imaging with multifocal pneumonia. Was hypoxic at 87% on room air at time of admission. #LEGIONELLA pneumonia / multi-focal pneumonia * legionella urine Ag returned POSITIVE * clinical picture c/w legionella infection - b/l infiltrates on imaging, severe diarrhea, confusion, dry cough, etc. * improving * +legionella reported to our infection pilot control operator * Her legionella reported to the [facility] * Patient lives in apartment complex and has a window air conditioner unit but it has not been on recently * no recent travel, no exposure to swimming pools, etc. * source uncertain * remains on azithromycin - today is dose #8 of such --> plan 10 days in total of azithromycin * completed 7 days of IV zosyn/rocephin for typical pathogen coverage * blood/sputum cx's negative * Respiratory biofire negative * cont incentive spirometer & flutter valve * Scheduled Mucinex 600mg twice daily. Tessalon prn TID * Histoplasmosis Ab's negative * JENN level for sarcoid - normal * repeat cxr 10/20 - improved b/l infiltrates especially the right * 10/22 - O2 weaned off and stable in room air #sepsis * 2nd to pneumonia + UTI * sepsis resolved * blood cx's neg * most recent cbc - leukocytosis resolved #elevated troponin * likely 2nd to myocardial demand ischemia in setting of sepsis/pneumonia/UTI * no evidence of ACS * in light of troponin elevation & murmur obtained echo -- normal LV function, normal LV wall motion #acute metabolic encephalopathy - ONGOING * 2nd to pneumonia and UTI * improving but still very confused * cont zyprexa 2.5mg PO HS - tolerating such * EKG 10/19 with acceptable QTc (~450msec) * obtained CT head today due to ongoing confusion --> no acute findings; atrophy present #hypomagnesemia/hypokalemia * mag low at 1.3 s/p repletion. * K stable * repeat BMP/mag in am #UTI * 2nd e.coli; received full 7 days of zosyn/rocephin * prior CT a/p without urinary tract anomalies, stones, etc * consider methenamine prophylaxis in the future given how frequent the UTIs are #T2DM * semaglutide and glimepiride is outpatient regimen; both agents on hold * recent A1C 7.7 on 09/10/24 * pharmacy glycemic consult for management much appreciated * cont basal-bolus insulins #PATRICIA - resolved #left ankle synovitis * ankle x-rays without CPPD changes or fracture * uric acid level <6 but still suspect this was acute gout * MUCH improved s/p prednisone 20mg po x 1, followed by 10mg, followed by 5mg daily (through 10/25) #hoarse voice * due to persistent c/o sore throat and ?recent upper lip swelling obtained CT soft tissues neck to exclude laryngeal edema/airway compromise -- NEGATIVE * follow, and if hoarseness persists longer than a week or 2 then send to ENT for consideration of direct laryngoscopy Chronic stable diagnoses: GERDPPI placed on hold due to severe hypomagnesemia; changed to famotidine twice daily hypothyroidismcontinue levothyroxine; TSH 4.2 in Aug 2024 Hypertension losartan Hyperlipidemiacontinue rosuvastatin DVT proph - heparin 5000 BID PT/OT recommending rehab - [facility] P2P denied. Additional SNF referrals sent. Patient stable for dc but due to delirium, unsafe to return to her previous living condition of living alone. Discussed w/ CM 10/24. Admission and Anticipated Discharge Date Admission Date: October 15, 2024 Subjective Patient seen and examined this afternoon. Patient w/ dry cough. Nurse reports she continues to cough frequently. Patient denied any complaints. Discussed discharge planning. Physical Exam Constitutional: WD/WN, vitals as above Eyes: PERRL, conjunctivae normal, anicteric sclerae Respiratory: normal respiratory effort, lungs clear to auscultation Cardiovascular: RRR, no murmur, no edema Psychiatric: alert Results & Data Results & Data Vital Signs (Past 12 Hours) Vital Signs Temp Pulse Resp BP Pulse Ox O2 Del Method 10/24/24 15:58 36.6 C 82 18 121/67 93 Room Air 10/24/24 08:00 Room Air 10/24/24 07:14 36.7 C 73 18 152/82 H 92 Room Air PG Care Time/CCT Total # of Minutes Spent Total Time Spent with Patient: Total time spent is greater than 50% in coordination of care (as documented) at patient's floor/unit and/or counseling patient: Coding Level of Care Code 64479 SUB INP/OBS CARE 2/35MIN Diagnoses Legionella pneumonia A48.1 Multifocal pneumonia J18.9 Acute respiratory failure J96.00 Sepsis A41.9 Elevated troponin R79.89 Hypomagnesemia E83.42 Hypokalemia E87.6 Urinary tract infection N39.0 Hyperglycemia due to type 2 diabetes mellitus E11.65 Acute metabolic encephalopathy G93.41 Diarrhea R19.7 Acute ankle pain M25.579
[2024-10-24] MEDS: guaiFENesin 600 MG TABCR PO SCH (20:17)
[2024-10-24] MEDS ORDERED: BENZONATATE 100 MG CAPSULE PO SCH (21:00)
[2024-10-25] MEDS: MAGNESIUM SULFATE / D5W 1 GM/100 ML BAG IV SCH (14:14)
--- NOTE | 2024-10-25 16:50 | Hospitalist Progress Note ---
Date of Service October 25, 2024 Assessment & Plan (1) Legionella pneumonia: (2) Multifocal pneumonia: (3) Acute respiratory failure: (4) Sepsis: (5) Elevated troponin: (6) Hypomagnesemia: (7) Hypokalemia: (8) Urinary tract infection: (9) Hyperglycemia due to type 2 diabetes mellitus: (10) Acute metabolic encephalopathy: (11) Diarrhea: (12) Acute ankle pain: Plan 89yo female with PMHX of type II DM, hypertension, recurrent UTIs, urinary incontinence, hypothyroidism, hyperlipidemia. Patient presented to the ED for sore throat, cough, and weakness on 10/15. #LEGIONELLA pneumonia / multi-focal pneumonia / Sepsis * legionella urine Ag returned POSITIVE, reported to infection control & [facility]. * Histoplasmosis ab negative, JENN level normal. BC/Sputum negative. biofire negative. * repeat cxr 10/20 - improved b/l infiltrates * clinical picture c/w legionella infection - b/l infiltrates on imaging, severe diarrhea, confusion, dry cough, etc. * Patient lives in apartment complex and has a window air conditioner unit but it has not been on recently; no recent travel, no exposure to swimming pools, etc. * Continue Azithromycin x 10 days - today is dose #9 of such * s/p 7 days of IV zosyn/rocephin * cont incentive spirometer & flutter valve * Mucinex 600mg twice daily. Tessalon prn TID #elevated troponin * likely 2nd to myocardial demand ischemia in setting of sepsis/pneumonia/UTI * no evidence of ACS * Echo -- normal LV function, normal LV wall motion #acute metabolic encephalopathy - ONGOING * 2nd to pneumonia and UTI, improving w/ medicaiton adjustments. * cont zyprexa 2.5mg PO HS - tolerating such * EKG 10/19 with acceptable QTc (~450msec) * CT head 10/23--> no acute findings; atrophy present #hypomagnesemia/hypokalemia * mag low at 1.4 s/p repletion. * K stable * repeat BMP/mag in am #T2DM * semaglutide and glimepiride is outpatient regimen; both agents on hold * recent A1C 7.7 on 09/10/24 * pharmacy glycemic consult for management much appreciated * cont basal-bolus insulins #left ankle synovitis * ankle x-rays without CPPD changes or fracture * uric acid level <6 but still suspect this was acute gout * MUCH improved s/p prednisone 20mg po x 1, followed by 10mg, followed by 5mg daily (through 10/25) #hoarse voice * due to persistent c/o sore throat and ?recent upper lip swelling obtained CT soft tissues neck to exclude laryngeal edema/airway compromise -- NEGATIVE * follow, and if hoarseness persists longer than a week or 2 then send to ENT for consideration of direct laryngoscopy Resolved conditions during hospital stay: Sepsis - secondary to pneumonia/UTI, no leukocytosis UTI - treated w/ Zosyn/Rocephin. Consider methenamine prophylaxis in future PATRICIA - Creatinine stable Chronic stable diagnoses: GERDPPI placed on hold due to severe hypomagnesemia; changed to famotidine twice daily hypothyroidismcontinue levothyroxine; TSH 4.2 in Aug 2024 Hypertension losartan Hyperlipidemiacontinue rosuvastatin DVT proph - heparin 5000 BID PT/OT recommending rehab - [facility] P2P denied. Additional SNF referrals sent. Patient stable for dc but due to delirium, unsafe to return to her previous living condition of living alone. Admission and Anticipated Discharge Date Admission Date: October 15, 2024 Subjective Patient seen and examined this morning. Patient w/ improvement of her mental status today. She reported no symptoms and was not actively coughing during her visit today. She was coloring a picture Physical Exam Constitutional: WD/WN, vitals as above Eyes: PERRL, conjunctivae normal, anicteric sclerae Respiratory: normal respiratory effort, lungs clear to auscultation Cardiovascular: RRR, no murmur, no edema Results & Data Results & Data Vital Signs (Past 12 Hours) Vital Signs Temp Pulse Pulse Resp BP BP Pulse Ox 10/25/24 16:32 36.5 C 72 18 124/63 90 10/25/24 10:56 36.7 C 74 18 110/64 90 10/25/24 09:00 10/25/24 07:26 36.7 C 66 18 134/67 94 O2 Del Method 10/25/24 16:32 Room Air 10/25/24 10:56 Room Air 10/25/24 09:00 Room Air 10/25/24 07:26 Room Air PG Care Time/CCT Total # of Minutes Spent Total Time Spent with Patient: Total time spent is greater than 50% in coordination of care (as documented) at patient's floor/unit and/or counseling patient: Coding Level of Care Code 42627 SUB INP/OBS CARE 2/35MIN Diagnoses Legionella pneumonia A48.1 Multifocal pneumonia J18.9 Acute respiratory failure J96.00 Sepsis A41.9 Elevated troponin R79.89 Hypomagnesemia E83.42 Hypokalemia E87.6 Urinary tract infection N39.0 Hyperglycemia due to type 2 diabetes mellitus E11.65 Acute metabolic encephalopathy G93.41 Diarrhea R19.7 Acute ankle pain M25.579
[2024-10-25] MEDS: BENZONATATE 100 MG CAPSULE PO PRN (20:10)
[2024-10-25 23:42] VITALS: O2SAT 93
[2024-10-26 07:33] VITALS: RESP 18
[2024-10-26 07:41] LABS: Calcium 8.9 mg/dl (8.6-10.3); Creatinine Clr Calc Pharmacy 33.8 ml/min; Magnesium 1.6 mg/dl (1.7-2.4)
[2024-10-26] MEDS: MAGNESIUM SULFATE / D5W 1 GM/100 ML BAG IV SCH (09:00)
[2024-10-26 11:50] VITALS: BP 127/70; PULSE 72; TEMP 97.7
--- NOTE | 2024-10-26 12:07 | Discharge Summary ---
Discharge Summary Date of Service October 26, 2024 Principal Dx & Hospital Course #1 = Principal Diagnosis (1) Legionella pneumonia: (2) Multifocal pneumonia: (3) Acute respiratory failure: (4) Sepsis: (5) Elevated troponin: (6) Hypomagnesemia: (7) Hypokalemia: (8) Urinary tract infection: (9) Hyperglycemia due to type 2 diabetes mellitus: (10) Acute metabolic encephalopathy: (11) Diarrhea: (12) Acute ankle pain: Plan 89yo female with PMHX of type II DM, hypertension, recurrent UTIs, urinary incontinence, hypothyroidism, hyperlipidemia. Patient presented to the ED for sore throat, cough, and weakness on 10/15. #LEGIONELLA pneumonia / multi-focal pneumonia / Sepsis * legionella urine Ag returned POSITIVE, reported to infection control & [facility] department. * Histoplasmosis ab negative, JENN level normal. BC/Sputum negative. biofire negative. * repeat cxr 10/20 - improved b/l infiltrates * Completed 10 day course of Azithromycin & 7 day course of Zosyn/Rocephin * Mucinex prn on discharge. #elevated troponin * likely 2nd to myocardial demand ischemia in setting of sepsis/pneumonia/UTI * no evidence of ACS * Echo -- normal LV function, normal LV wall motion #acute metabolic encephalopathy - ONGOING * 2nd to pneumonia and UTI, improving w/ medication adjustments. * stop Zyprexa at discharge, encephalopathy improved. * EKG 10/19 with acceptable QTc (~450msec) * CT head 10/23--> no acute findings; atrophy present #hypomagnesemia/hypokalemia * mag low at 1.6 s/p repletion. * K stable * resume magnesium supplement outpatient #T2DM * semaglutide and glimepiride is outpatient regimen; resume on dc * recent A1C 7.7 on 09/10/24 #left ankle synovitis * ankle x-rays without CPPD changes or fracture * uric acid level <6 but still suspect this was acute gout * s/p course of prednisone w/ resolution of symptoms. #hoarse voice * due to persistent c/o sore throat and ?recent upper lip swelling obtained CT soft tissues neck to exclude laryngeal edema/airway compromise -- NEGATIVE * Consider ENT referral if persists. Resolved conditions during hospital stay: Sepsis - secondary to pneumonia/UTI, no leukocytosis UTI - treated w/ Zosyn/Rocephin. Consider methenamine prophylaxis in future PATRICIA - Creatinine stable Chronic stable diagnoses: GERDPPI placed on hold due to severe hypomagnesemia; changed to famotidine twice daily hypothyroidismcontinue levothyroxine; TSH 4.2 in Aug 2024 Hypertension losartan Hyperlipidemiacontinue rosuvastatin Discussed 10/26 w/ patient daughter that mentation has improved and she is back to baseline. Patient independent in room now and she is safe to return home w/ home health. Daughter also agreed. Reports she lives 5 minutes away and patient's neighbors also help take care of her. Admission HPI Per Admitting Provider Patient is a 89 yo female the past medical history of type II DM, hypertension, cystitis, urinary incontinence, frequent UTIs, hypothyroidism, HLD. Patient presented to the ED for sore throat, cough, and weakness. patient was found to have multifocal pneumonia, hypoxic at 87% on room air, meeting SIRS criteria, and a UTI. Patient appears ill and slightly confused upon examination for admission. She is being admitted to PCU for IV antibiotics. Patient seen at bedside. She is alert and oriented however slightly confused. she stated that she has felt sick for couple days and specifically more weak today. She has a sore throat, cough with yellow sputum production, rhinorrhea, increase in urinary urgency and frequency. She states she also had diarrhea couple weeks ago. She denies any chest pain, shortness of breath, dizziness/lightheadedness, abdominal pain, vomiting. She stated she does not use nicotine products or drink alcohol. She lives at home alone and her daughter, son, and neighbors checking on her frequently. She did take her morning medications but is due for her evening medications, glucose 309 on admission. She denies any sick contacts. She wishes to be full code. She does not use oxygen at baseline. She stated her appetite has been slightly decreased and she has had poor p.o. intake today. Discharge Exam Constitutional WD/WN, vitals as above Eyes PERRL, conjunctivae normal, anicteric sclerae Respiratory normal respiratory effort, lungs clear to auscultation Cardiovascular RRR, no murmur, no edema Psychiatric A+Ox3, euthymic affect Discharge Plan Discharge Items Patient Disposition: Home - Home Health Services Reason For Visit: MULTIFOCAL PNEUMONIA, HYPOXIA, UTI, SEPSIS Discharge Diagnosis: Legionella Pneumonia Activity: Resume your previous activity Non-emergency contact: Primary Care Provider Call non-emergency contact if: you have any medication questions, your symptoms worsen and you have a fever Follow-up/Referrals: Nj Bashir, [Primary Care Provider] - 10/30/24 1:00 pm (Hospital follow up scheduled October 30 at 1:00) Diet: Carb Consistent or DM2 Diet Texture: Easy to Chew Addtl Attending Provider Instructions: Ms. Mendoza, You were recently hospitalized for a sore throat, coughing, and weakness. You were found to have pneumonia and a UTI. You were treated appropriately with antibiotics. Please see recommendations below regarding your discharge. You have completed your antibiotics for both pneumonia and your UTI therefore you do not require any on discharge. Please use Mucinex as needed for a lingering cough. Please follow up with your PCP within 1-2 weeks of discharge for further symptom management. The remainder of your outpatient medications may be resumed at time of discharge. Home health will be arranged for you to get therapy at home so that you get stronger. If you develop any worsening symptoms including fever, chest pain, or shortness of breath please report back to the ER for further care. Sincerely, Nyasia Mchugh PA-C Pending Studies at Discharge: No Stand-Alone Forms: My [facility], Smoking Cessation Medications and DC Order Prescriptions: Continued glimepiride 4 mg tablet 4 mg PO BID Qty: 180 3RF magnesium chloride [Mag 64] 64 mg tablet,delayed release (DR/EC) 64 mg PO BID Qty: 180 3RF levothyroxine 50 mcg tablet 50 mcg PO QAM Qty: 90 3RF omeprazole 40 mg capsule,delayed release(DR/EC) 40 mg PO BID Qty: 180 3RF Rx Instructions: TAKE 1 CAPSULE BY MOUTH TWICE A DAY olmesartan 5 mg tablet 5 mg PO QAM Qty: 90 3RF Centrum Silver 0.4-300-250 mg-mcg-mcg Tablet 1 tab PO QAM semaglutide 7 mg tablet 7 mg PO QAM rosuvastatin 5 mg tablet 5 mg PO QPM No Action (DME) Depend Underwear For Women Lrg Misc See Rx Instructions .Route Qty: 104 0RF Rx Instructions: Size Large/6 per day (DME) blood-glucose meter [Accu-Chek Misty Plus Meter] Misc See Rx Instructions .Route Qty: 1 0RF Rx Instructions: As directed (DME) Ultra-Light Rollator Misc See Rx Instructions .Route Qty: 1 0RF Rx Instructions: As directed~ Rollator walker (DME) Accu-Chek Guide test strips Strip See Rx Instructions .Route Qty: 100 3RF Rx Instructions: Use to test daily (DME) lancets [Accu-Chek Softclix Lancets] Misc See Rx Instructions .ROUTE .MEDSUPPLY Qty: 100 5RF Rx Instructions: Use to test blood sugar 3 times a day. (DME) FreeStyle Best 2 [place] Misc See Rx Instructions .ROUTE .MEDSUPPLY Qty: 1 0RF Rx Instructions: As directed (DME) FreeStyle Best 2 Sensor Kit See Rx Instructions .Route Qty: 1 6RF Rx Instructions: change every 14 days Discharge Orders: Discharge Order (Routine); Ordered 10/26/24 Ordered By: Nyasia Mchugh Admission Data Admit Date/Time: 10/15/24 23:45 Attending Provider: Liyah Gillespie Admit Provider: Cameron Vasques Primary Care Provider: Nj Bashir Other Providers: [facility],Home Healthcare; [facility]; Cameron Vasques; [place],[facility]; [facility] Other Interventions: Discharge Summary Assessment (RN) Last Done: 10/26/24 12:42 Hospital Stay Data Consultations 10/15/24 22:21 ED Decision to Admit Stat Diagnostic Imagining Performed 10/15/24 23:35 CT chest diagnostic wo con Urgent 10/16/24 00:11 US venous doppler LE BI Urgent 10/22/24 14:18 CT soft tissue neck wo con Urgent 10/23/24 15:[address] [CT head/brain wo con] Urgent Pending Results Patient Have Any Pending Studies at Discharge: No Discharge Instructions Given to Patient (Per Discharging Provider) Ms. Mendoza, You were recently hospitalized for a sore throat, coughing, and weakness. You were found to have pneumonia and a UTI. You were treated appropriately with antibiotics. Please see recommendations below regarding your discharge. You have completed your antibiotics for both pneumonia and your UTI therefore you do not require any on discharge. Please use Mucinex as needed for a lingering cough. Please follow up with your PCP within 1-2 weeks of discharge for further symptom management. The remainder of your outpatient medications may be resumed at time of discharge. Home health will be arranged for you to get therapy at home so that you get stronger. If you develop any worsening symptoms including fever, chest pain, or shortness of breath please report back to the ER for further care. Sincerely, Nyasia Mchugh PA-C Total Time Total Time Spent Total Time Spent (In Minutes): 50 Total Time Includes: Examination of the Patient, Discharge Planning and Medication Reconciliation Coding Level of Care Code 67231 INP/OBS DISCH >30 MIN Diagnoses Legionella pneumonia A48.1 Multifocal pneumonia J18.9 Acute respiratory failure J96.00 Sepsis A41.9 Elevated troponin R79.89 Hypomagnesemia E83.42 Hypokalemia E87.6 Urinary tract infection N39.0 Hyperglycemia due to type 2 diabetes mellitus E11.65 Acute metabolic encephalopathy G93.41 Diarrhea R19.7 Acute ankle pain M25.579
== END 2024-10-26 13:51 | disposition home health service (06) | DRG 871 ==
LOC: ED 18:30 → SUATTDRO 23:45 → 2S 23:45